=== PATIENT | female | born 1940 | race Caucasian/White ===

== ENCOUNTER 2016-07-17 09:11 | Day surgery (SDC) | payer MEDICARE ==
[2016-07-11 12:41] VITALS: BMI 30.1
[~2016-07-17 09:11] MED LIST: LACTATED RINGERS 1,000 ML IV SCH
[2016-07-17 09:37] VITALS: RESP 16; TEMP 97.1
[2016-07-17] MEDS: PHENYLEPHRINE 10% OPHTH DROPS 5 ML BTL OP ONE ×2 (09:39→09:51)
[2016-07-17] MEDS ORDERED: LIDOCAINE 1% 20 ML VIAL (10MG/ML) FOR IV START INTRADERMA ONE (09:40)
[2016-07-17] MEDS: CYCLOPENTOLATE 1% OPHTH SOLN 2 ML BTL OP ONE ×3 (09:41→09:55)
[2016-07-17] MEDS: FLURBIPROFEN 0.03% OPHTH DROPS 2.5 ML BTL OP ONE ×2 (09:43→09:53)
[2016-07-17] MEDS ORDERED: PROPOFOL 10 MG/ML 20 ML VIAL IV ONE (10:27)
[2016-07-17] MEDS ORDERED: MIDAZOLAM 2 MG/2 ML VIAL ONE (10:27)
[2016-07-17] MEDS ORDERED: fentaNYL (PF) 50 MCG/ML 2 ML AMP ONE (10:27)
[2016-07-17] MEDS ORDERED: BALANCED SALT IRRIG SOLN COMB2 15 ML IRRIG.SOLN INTRAOCULA ONE (10:37)
[2016-07-17] MEDS ORDERED: EPINEPHrine (PF) 0.5 ML in BALANCED SALT IRRIG SOLN COMB2 500 ML IRRIGATION ONE (10:37)
[2016-07-17] MEDS ORDERED: HYALURONATE SODIUM INTRAOCULAR 1 EACH SYRINGE (10MG/ML) INTRAOCULA ONE (10:37)
--- NOTE | 2016-07-17 10:46 | P.OP ---
Date of Procedure: 07/17/16 Procedure(s) Performed: PREOPERATIVE DIAGNOSIS: Cataract, left eye. POSTOPERATIVE DIAGNOSIS: Cataract, left eye. OPERATION: Phacoemulsification cataract, left eye. DESCRIPTION OF PROCEDURE: The patient was taken to the preoperative holding area. Intravenous Propofol was given so as to bring about adequate sedation. The following mixture was given for local anesthesia: 5 mL of 2% lidocaine, 5 mL of 0.75% Marcaine, and 1 mL of Wydase. Approximately 4 mL was injected in the retrobulbar space of the surgical eye. Additional 1 mL was then directed to the temporal area of the surgical eye. This was performed to allow adequate neurological block of the facial muscles. The patient was revived and then taken into the operative room. The patient was prepped and draped in the usual sterile manner for the operative eye. A lid speculum was put into position. The conjunctiva was resected back from the limbus in the 12 o'clock position. Bleeding was controlled with electrocautery. A #69 blade was then used and a half-thickness scleral incision approximately 1-mm posterior to the limbus was made on bare sclera. This was shelved in the clear cornea using a crescent knife. Next a 15-degree blade was used to make a stab incision at the 3 o' clock position at the corneolimbal interface. Keratome blade was then used and the superior wound was extended into the anterior chamber. Viscoelastic was injected into the anterior chamber and to maintain its form. Next, a cystotome was used and a continuous anterior capsulotomy was made without difficulty. Hydrodissection using a blunt cannula and BSS was performed. Phaco probe was then employed and a groove extending from 12 to 6 o'clock in the lens was created. A Jeronimo wand was used through the stab incision so as to perform a divide and conquer technique. Next an irrigation aspiration probe was utilized and any residual cortex was removed from the eye. Again, viscoelastic was injected into the anterior chamber. An Taye posterior chamber lens implant was placed in the cartridge and injected into the anterior chamber without difficulty. The [employer] hook was utilized to spin the lens into position and this was again performed without any difficulty. The irrigation and aspiration probe was again employed and any residual viscoelastic was removed from the eye. Then BSS was injected into the limbal stab incision and the anterior chamber re-inflated. The conjunctiva was reapproximated using electrocautery. One drop of 0.25% Timoptic was placed over the corneal along with TobraDex ophthalmic ointment. Two sterile patches and a Delaney eye shield were taped into position. The patient was transported to the recovery room in stable condition. Pathology: none sent Condition: stable Disposition: same day
[2016-07-17 11:12] VITALS: BP 152/79; PULSE 62
[2016-07-17] MEDS ORDERED: TIMOLOL 0.5% OPHTH SOLN (PF) 0.2 ML DROPERETTE OP ONE (23:00)
[2016-07-17] MEDS ORDERED: GENTAMICIN/PREDNISOL AC OPHTH OINT 3.5GM OPHTHALMIC ONE (23:00)
[2016-07-17] MEDS ORDERED: BUPIVACAINE (PF) 0.75% 5 ML, LIDOCAINE 4% (PF) 5 ML, HYALURONIDASE, HUMAN RECOMB 150 UNIT MISCELLANE ONE ×3 (23:00)
== END 2016-07-17 11:34 | disposition home or self-care (01) ==
LOC: OR 09:11
PROVIDERS: ATTEND Ophthalmology
DX: H26.9 Unspecified cataract (principal); F32.9 Major depressive disorder, single episode, unspecified; Z79.899 Other long term (current) drug therapy; Z88.2 Allergy status to sulfonamides
CPT/HCPCS: 66984; V2632; J2001; J2250; J3470; J0171; J3010; J2704

== ENCOUNTER 2016-08-28 07:09 | Day surgery (SDC) | payer MEDICARE ==
[2016-08-21 10:44] VITALS: BMI 30.2
[2016-08-28] MEDS: FLURBIPROFEN 0.03% OPHTH DROPS 2.5 ML BTL OP ONE ×3 (08:22→08:37)
[2016-08-28] MEDS: PHENYLEPHRINE 10% OPHTH DROPS 5 ML BTL OP ONE ×3 (08:25→08:40)
[2016-08-28 08:27] VITALS: RESP 16; TEMP 97.1
[2016-08-28] MEDS: CYCLOPENTOLATE 1% OPHTH SOLN 2 ML BTL OP ONE ×3 (08:27→08:42)
[2016-08-28] MEDS ORDERED: LIDOCAINE 1% 20 ML VIAL (10MG/ML) FOR IV START INTRADERMA ONE (08:28)
[2016-08-28] MEDS ORDERED: PROPOFOL 10 MG/ML 20 ML VIAL IV ONE (08:56)
[2016-08-28] MEDS ORDERED: MIDAZOLAM 2 MG/2 ML VIAL ONE (08:56)
[2016-08-28] MEDS ORDERED: fentaNYL (PF) 50 MCG/ML 2 ML AMP ONE (08:56)
[2016-08-28] MEDS ORDERED: HYALURONATE SODIUM INTRAOCULAR 1 EACH SYRINGE (10MG/ML) INTRAOCULA ONE (09:02)
[2016-08-28] MEDS ORDERED: BALANCED SALT IRRIG SOLN COMB2 15 ML IRRIG.SOLN IRRIGATION ONE (09:02)
[2016-08-28] MEDS ORDERED: EPINEPHrine (PF) 0.5 ML in BALANCED SALT IRRIG SOLN COMB2 500 ML IRRIGATION ONE (09:03)
--- NOTE | 2016-08-28 09:21 | P.OP ---
Date of Procedure: 08/28/16 Preoperative Diagnosis: Postoperative Diagnosis: Procedure(s) Performed: PREOPERATIVE DIAGNOSIS: Cataract, right eye. POSTOPERATIVE DIAGNOSIS: Cataract, right eye. OPERATION: Phacoemulsification cataract, right eye. DESCRIPTION OF PROCEDURE: The patient was taken to the preoperative holding area. Intravenous Propofol was given so as to bring about adequate sedation. The following mixture was given for local anesthesia: 5 mL of 2% lidocaine, 5 mL of 0.75% Marcaine, and 1 mL of Wydase. Approximately 4 mL was injected in the retrobulbar space of the surgical eye. Additional 1 mL was then directed to the temporal area of the surgical eye. This was performed to allow adequate neurological block of the facial muscles. The patient was revived and then taken into the operative room. The patient was prepped and draped in the usual sterile manner for the operative eye. A lid speculum was put into position. The conjunctiva was resected back from the limbus in the 12 o'clock position. Bleeding was controlled with electrocautery. A #69 blade was then used and a half-thickness scleral incision approximately 1-mm posterior to the limbus was made on bare sclera. This was shelved in the clear cornea using a crescent knife. Next a 15-degree blade was used to make a stab incision at the 3 o' clock position at the corneolimbal interface. Keratome blade was then used and the superior wound was extended into the anterior chamber. Viscoelastic was injected into the anterior chamber and to maintain its form. Next, a cystotome was used and a continuous anterior capsulotomy was made without difficulty. Hydrodissection using a blunt cannula and BSS was performed. Phaco probe was then employed and a groove extending from 12 to 6 o'clock in the lens was created. A Jeronimo wand was used through the stab incision so as to perform a divide and conquer technique. Next an irrigation aspiration probe was utilized and any residual cortex was removed from the eye. Again, viscoelastic was injected into the anterior chamber. An Taye posterior chamber lens implant was placed in the cartridge and injected into the anterior chamber without difficulty. The [employer] hook was utilized to spin the lens into position and this was again performed without any difficulty. The irrigation and aspiration probe was again employed and any residual viscoelastic was removed from the eye. Then BSS was injected into the limbal stab incision and the anterior chamber re-inflated. The conjunctiva was reapproximated using electrocautery. One drop of 0.25% Timoptic was placed over the corneal along with TobraDex ophthalmic ointment. Two sterile patches and a Delaney eye shield were taped into position. The patient was transported to the recovery room in stable condition. Implants: Pathology: none sent Condition: stable Disposition: same day Indications for Procedure: Operative Findings: Description of Procedure:
[2016-08-28 09:39] VITALS: BP 151/83; PULSE 64
[2016-08-28] MEDS ORDERED: TIMOLOL 0.5% OPHTH SOLN (PF) 0.2 ML DROPERETTE OP ONE (23:00)
[2016-08-28] MEDS ORDERED: GENTAMICIN/PREDNISOL AC OPHTH OINT 3.5GM OPHTHALMIC ONE (23:00)
[2016-08-28] MEDS ORDERED: BUPIVACAINE (PF) 0.75% 5 ML, LIDOCAINE 4% (PF) 5 ML, HYALURONIDASE, HUMAN RECOMB 150 UNIT MISCELLANE ONE ×3 (23:00)
== END 2016-08-28 10:04 | disposition home or self-care (01) ==
LOC: OR 07:09
PROVIDERS: ATTEND Ophthalmology
DX: H26.9 Unspecified cataract (principal); J44.9 Chronic obstructive pulmonary disease, unspecified; Z79.51 Long term (current) use of inhaled steroids; Z79.899 Other long term (current) drug therapy; Z88.2 Allergy status to sulfonamides
CPT/HCPCS: 66984; V2632; J2001; J2250; J3470; J0171; J3010; J2704

== ENCOUNTER → 2017-11-21 | Outpatient (CLI) | payer MEDICARE ==
[2017-11-21 12:12] LABS: HGB 14.1 gm/dL (11.4-16.0); MCHC 32.8 g/dL (31.0-37.0); MCV 88.4 fL (80.0-100.0); Platelet Count 283 k/uL (150-450); RBC 4.87 m/uL (3.80-5.40); RDW 13.6 % (11.5-15.5)
[2017-11-21 12:16] LABS: INR 1.1 (<1.2); Prothrombin Time 10.6 sec (9.0-12.0)
[2017-11-21 12:17] LABS: Partial Thromboplastin Time 22.6 sec (22.0-30.0)
[2017-11-21 12:23] LABS: ALT 32 U/L (9-52); AST 22 U/L (14-36); Albumin 3.8 g/dL (3.5-5.0); Alkaline Phosphatase 74 U/L (38-126); Anion Gap 8 mmol/L; Blood Urea Nitrogen 11 mg/dL (7-17); Calcium 8.9 mg/dL (8.4-10.2); Carbon Dioxide 24 mmol/L (22-30); Chloride 108 mmol/L (98-107); Glucose 90 mg/dL (74-99); Sodium 140 mmol/L (137-145); Total Bilirubin 0.5 mg/dL (0.2-1.3); Total Protein 6.5 g/dL (6.3-8.2)
[2017-11-21 12:30] LABS: Appearance,Urine Clear (Clear); Bilirubin,Urine Negative (Negative); Blood,Urine Negative (Negative); Color,Urine Light Yellow; Glucose,Urine (UA) Negative (Negative); Ketones,Urine Negative (Negative); Leukocyte Esterase,Urine Negative (Negative); Nitrite,Urine Negative (Negative); Protein,Urine Negative (Negative); Specific Gravity,Urine 1.009 (1.001-1.035); Urobilinogen,Urine <2.0 mg/dL (<2.0)
== END | disposition home or self-care (01) ==
LOC: LABPAT 11:08
PROVIDERS: ATTEND Orthopaedic Surgery
DX: Z01.818 Encounter for other preprocedural examination (principal); Z01.812 Encounter for preprocedural laboratory examination
CPT/HCPCS: 80053; 81003; 85027; 85610; 85730; 87070; 93005

== ENCOUNTER 2017-11-26 14:00 | Inpatient (IN) | payer MEDICARE ==
[2017-12-11 09:50] VITALS: BMI 30.7
[2017-12-17] MEDS ORDERED: TRANEXAMIC ACID 1,000 MG in SODIUM CHLORIDE 0.9% 50 ML IVPB ONE ×4 (05:00)
[2017-12-17] MEDS ORDERED: ACETAMINOPHEN TAB 500 MG TAB PO ONE (05:00)
[2017-12-17] MEDS ORDERED: MELOXICAM 7.5 MG TAB PO ONE (05:00)
[2017-12-17] MEDS ORDERED: ceFAZolin IN SWFI 2 GM/20 ML SYRINGE IVP ONE (05:00)
[2017-12-17] MEDS ORDERED: ROPIVACAINE 246.25 MG, EPINEPHrine 0.5 MG, KETOROLAC 30 MG, cloNIDine HCL/PF 80 MCG, WA... MISCELLANE ONE ×5 (06:02)
[2017-12-17] MEDS ORDERED: ONDANSETRON 4 MG/2 ML VIAL ONE (11:10)
[2017-12-17] MEDS ORDERED: MIDAZOLAM 2 MG/2 ML VIAL ONE ×2 (11:10→12:11)
[2017-12-17] MEDS ORDERED: DEXAMETHASONE SOD PHOS (MDV) 100 MG/10 ML VIAL IV ONE (11:32)
[2017-12-17] MEDS ORDERED: LACTATED RINGERS 1,000 ML IV ONE ×2 (11:34→16:39)
[2017-12-17] MEDS ORDERED: LIDOCAINE 1% 20 ML VIAL (10MG/ML) FOR IV START INTRADERMA ONE (11:35)
[2017-12-17] MEDS ORDERED: fentaNYL (PF) 50 MCG/ML 2 ML AMP ONE ×2 (11:38→12:11)
[2017-12-17] MEDS ORDERED: fentaNYL (PF) 50 MCG/ML 2 ML AMP IV ONE (11:44)
[2017-12-17] MEDS ORDERED: TRANEXAMIC ACID 1,000 MG/10 ML VIAL ONE (12:11)
[2017-12-17] MEDS ORDERED: SODIUM CHLORIDE 0.9% 100 ML BAG ONE (12:11)
[2017-12-17] MEDS ORDERED: ROPIVACAINE 1,100 MG, SODIUM CHLORIDE 0.9% 330 ML MISCELLANE PRN ×2 (12:12)
--- NOTE | 2017-12-17 12:15 | P.ONQ ---
Anesthesiology Proc Note - PNB - Peripheral Nerve Block Performed Right Adductor Canal Infusion Procedure Start Time: 11:45 Indication: Acute Post-Operative Pain, Analgesia Sedation Type: Sedate with meaningful contact maintained Preparation: Sterile Prep Position: Supine Catheter Depth at Skin (cm): 8 Catheter: Indwelling Needle Types: Other (see comment) (mariusz) Needle Size: 100mm (4") Injectate: 0.5% Ropivacaine (see comment for volume) (20cc) Blood Aspirated: No Pain Paresthesia on Injection Noted: No Resistance on Injection: Normal Events: Uneventful and Well Tolerated
[2017-12-17] MEDS ORDERED: ceFAZolin 3,000 MG in SODIUM CHLORIDE 0.9% IRRIGATIO 3,000 ML IRRIGATION ONE (12:46)
[2017-12-17] MEDS ORDERED: NA PHOS,M-B/NA PHOS,DI-BA 133 ML ENEMA RECTAL PRN (13:02)
[2017-12-17] MEDS ORDERED: ONDANSETRON 4 MG/2 ML VIAL IVP PRN (13:02)
[2017-12-17] MEDS ORDERED: HYDROmorphone 1 MG/ML 1 ML SYRINGE IVP PRN ×2 (13:02)
[2017-12-17] MEDS ORDERED: BISACODYL 10 MG SUPP RECTAL PRN (13:02)
[2017-12-17] MEDS ORDERED: MAGNESIUM HYDROXIDE 2,400 MG/10 ML CUP PO PRN (13:02)
[2017-12-17] MEDS ORDERED: NALOXONE 0.4 MG/ML 1 ML VIAL IV PRN (13:02)
[2017-12-17] MEDS ORDERED: hydrOXYzine PAMOATE 25 MG CAP PO PRN (13:02)
[2017-12-17] MEDS ORDERED: DIAZEPAM 5 MG TAB PO PRN ×2 (13:02)
--- NOTE | 2017-12-17 13:45 | P.OP ---
Date of Procedure: 12/17/17 Preoperative Diagnosis: Severe osteoarthritis right knee Postoperative Diagnosis: Severe osteoarthritis right knee Procedure(s) Performed: Right total knee arthroplasty Implants: Matta [employer] Nephew Oxinium femoral component size 5, right Matta & Nephew Maite II right nonporous tibial baseplate size 4 Matta [employer] Nephew size 9 mm Legion XLPE high flexion articular insert, size 3-4 Matta [employer] Nephew Maite II resurfacing patellar component, 29 mm All components were cemented using Pollo bone cement.. The articulation is Oxinium on polyethylene. Anesthesia: spinal Surgeon: Bryant Bravo Analytics Leader #1: Guillermina Valdivia Estimated Blood Loss (ml): 50 Pathology: other (Bone and cartilage) Condition: stable Disposition: PACU Indications for Procedure: After failure of conservative treatment we discussed the surgical and nonsurgical treatment options at length. Patient wishes to proceed with a total knee arthroplasty. Complications specific to this procedure were discussed at length, including but not limited to infection, bleeding, stiffness , and nerve injury. Patient is aware of all these complications and informed consent was obtained Operative Findings: The operative findings are consistent with severe osteoarthritis of the left knee Description of Procedure: Patient was seen in the preoperative area consent was reviewed and operative site was marked with a skin marker. An adductor canal pain catheter was placed by anesthesia in the preoperative area. Patient was then brought to the operating room and given preoperative antibiotics intravenously. A spinal anesthetic was administered by the anesthesia department. A tourniquet was placed on the upper thigh and the lower extremity was prepped and draped in usual sterile fashion. A gram of transexamic acid was given. A universal timeout was then performed which confirmed the patient's name, surgical site, ALLERGIES, and consent. The lower extremity was then exsanguinated and tourniquet was inflated to 250 mmHg. A standard and anterior midline approach to the knee was performed. The skin and subcutaneous tissue was dissected down to the patellar tendon. A medial parapatellar arthrotomy was then performed. The knee was then extended, the patellar was everted, and the knee was again flexed. Anterior horns of both menisci were excised, and a release was performed to the posterior medial aspect of the knee. On gross visual inspection, there was complete loss of articular cartilage in the medial and patellofemoral joint spaces. There was also significant cartilage damage in the lateral compartment. There were multiple periarticular osteophytes which were then removed with a Ronguer. The femoral canal was then opened with the appropriate drill, and the intramedullary femoral cutting guide was then placed and set for 4 of valgus. The distal femoral cutting block was then pinned in place, and the distal femur was then cut. The cutting block was then removed and the cut was checked for flatness. Next, the sizing guide was then placed and set for 3 external rotation based off of the epicondylar axis and Whitesides line. After the femur was sized, the appropriate 4-in-1 cutting block was then pinned in place. The anterior condyles were cut without notching. The posterior and chamfer cuts were performed while protecting the collateral ligaments. The cutting block was then removed, and the femoral canal was plugged with autologous bone. Attention was then directed to the tibia. The remaining ACL was removed with a Ronguer, and the tibia was then gently subluxed forward with a large bent knee retractor. Any remaining menisci was excised. The posterior lateral corner was cauterized in order to cauterize the lateral geniculate artery. The extra medullary tibial cutting guide was then placed, set for the appropriate rotation , slope, and depth of resection. The proximal tibia cutting guide was then pinned in place. Proximal tibia was then cut and sized. Next trials were then placed with the appropriate-sized insert. The knee was able to fully extend and flex to 130 and was stable throughout all range of motion. The knee was then extended, patella everted. Patella was then measured, and then using an osteotomy guide, the patella was cut at the appropriate level. The patella was then measured and drilled and the patella trial was then placed. The knee was then taken through range of motion with the patella trial and the patella tracked normally. The knee was then extended patella trial was then removed and the patella was everted. Knee was then flexed and lug holes were drilled through the femoral trial and the femoral trial was then removed. The tibial was then exposed, and the tibial broach guide was then pinned in place after it was set for the appropriate rotation to allow for the most coverage without overhang. The tibia was then reamed and broached. The cut surfaces of bone were then irrigated with pulsatile lavage. The posterior structures were injected with the ropivacaine solution. The knee was also irrigated with Irrisept solution. The components were then opened, the cement was mixed, and the components were then cemented in place. The cement was allowed to harden with the knee in full extension. While the cement was hardening, the remaining soft tissues were then injected with a ropivacaine solution, which consisted of 246.25 mg of ropivacaine, 0.5 mg of epinephrine, 30 mg of Toradol, 80 g of clonidine, and 48.45 mL of sterile water, for a total of 100 mL of fluid injected. After the cemented hardened. The tourniquet was released, and hemostasis was obtained. A second gram of transexamic acid was given. The knee was again irrigated. The knee was again taken through range of motion and found to be stable throughout all range of motion of 0-130 , and the patella tracked normally. The fascia was then closed with #2 strata fix suture. The subcutaneous tissue was closed with 3-0 Vicryl and 3-0 strata fix. Dermabond glue was used for the skin and placed with the knee in flexion. The patient was placed in a sterile silver dressing. Patient was then transferred to recovery room in stable condition. The housekeeping assistant ZAHIDA Davey was required due the complexity surgery and the need for a skilled surgical corsetier. She assisted in positioning, draping, retraction, and closure of the wound.
[2017-12-17] MEDS ORDERED: IV FLUID CONTINUATION 1,000 ML IV ONE (13:59)
--- NOTE | 2017-12-17 14:19 | XR ---
EXAMINATION TYPE: XR knee limited RT DATE OF EXAM: 12/17/2017 COMPARISON: NONE TECHNIQUE: Two views submitted HISTORY: Post op FINDINGS: There is a prosthetic knee in near anatomic alignment. There is soft tissue edema and emphysema. IMPRESSION: 1. Postoperative change. Appears in near-anatomic alignment
[2017-12-17] MEDS ORDERED: ONDANSETRON 4 MG/2 ML VIAL IVP ONE (16:51)
[2017-12-17] MEDS ORDERED: HYDROmorphone 1 MG/ML 1 ML SYRINGE IVP ONE (16:51)
[2017-12-17] MEDS: SODIUM CHLORIDE 0.9% 1,000 ML IV SCH (17:44)
[2017-12-17] MEDS: ceFAZolin IN SWFI 2 GM/20 ML SYRINGE IVP SCH (18:17)
[2017-12-17] MEDS: SENNOSIDES-DOCUSATE SODIUM 1 EACH TAB PO SCH (20:29)
[2017-12-17] MEDS: ASPIRIN 325 MG TAB PO SCH (20:29)
[2017-12-17] MEDS: HYDROcodone/APAP 5-325MG 1 EACH TAB PO PRN (20:29)
[2017-12-18] MEDS: ceFAZolin IN SWFI 2 GM/20 ML SYRINGE IVP SCH (01:10)
[2017-12-18] MEDS: HYDROmorphone 1 MG/ML 1 ML SYRINGE IVP PRN ×3 (01:10→23:03)
[2017-12-18] MEDS: HYDROcodone/APAP 5-325MG 1 EACH TAB PO PRN ×4 (05:07→23:04)
[2017-12-18] MEDS: SODIUM CHLORIDE 0.9% 1,000 ML IV SCH ×2 (07:50→22:25)
[2017-12-18 08:12] LABS: Basophils % (A) 0 %; Eosinophils # (A) 0.1 k/uL (0-0.7); Eosinophils % (A) 1 %; HCT 37.7 % (34.0-46.0); HGB 12.2 gm/dL (11.4-16.0); Lymphocytes # (A) 1.4 k/uL (1.0-4.8); Lymphocytes % (A) 10 %; MCH 28.2 pg (25.0-35.0); MCHC 32.2 g/dL (31.0-37.0); MCV 87.4 fL (80.0-100.0); Mean Platelet Volume 7.4; Monocytes % (A) 8 %; Neutrophils # (A) 10.8 k/uL (1.3-7.7); Neutrophils % (A) 80 %; Platelet Count 248 k/uL (150-450); RBC 4.32 m/uL (3.80-5.40); RDW 13.4 % (11.5-15.5); WBC 13.4 k/uL (3.8-10.6)
[2017-12-18] MEDS: ASPIRIN 325 MG TAB PO SCH ×2 (08:46→20:03)
[2017-12-18] MEDS: MELOXICAM 7.5 MG TAB PO SCH (08:47)
--- NOTE | 2017-12-18 08:57 | P.DS ---
Providers Date of admission: 12/17/17 09:51 Expected date of discharge: 12/18/17 Attending physician: Bryant Bravo Consults: 12/17/17 13:02 Consult Physician Routine Consulting Provider: Nicko Rojas Consult Reason/Comments: medical management Do you want consulting provider notified?: Yes Primary care physician: Dami Rosario - Discharge Diagnosis(es) (1) Primary osteoarthritis of right knee Current Visit: Yes Status: Acute (2) Status post total right knee replacement Current Visit: Yes Status: Acute Hospital Course: This is a 77-year-old female with known history of degenerative arthritis of the right knee. The patient presents for evaluation. After discussion and consideration patient elects to proceed with total knee arthroplasty. The patient is seen preoperatively by Dr. Bravo and medically cleared for surgery by their primary care physician. Patient is admitted to [facility] on 12/17/2017 for total knee arthroplasty. The procedures performed without complication or sequelae. The patient is doing well postoperatively. Labs and vital signs are stable on day of discharge. On day of discharge patient's knee incision is healing well. There is minimal erythema. There is minimal drainage noted at this time. There is minimal soft tissue swelling to the knee. Patient has full foot and ankle motion without difficulty or pain. Neurovascular status to the right lower extremity is intact. Patient is discharged home in good condition. Please see med rec for accurate list of home medications. Plan - Discharge Summary Discharge Rx Participant: Yes New Discharge Prescriptions: New Aspirin 325 mg PO BID #60 tab HYDROcodone/APAP 5-325MG [[place] 5-325] 1 - 2 tab PO Q4-6H PRN #84 tab PRN Reason: Pain Sennosides [Senokot] 1 tab PO BID #60 tablet No Action Citalopram Hydrobromide [CeleXA] 40 mg PO DAILY Mometasone/Formoterol [Dulera 200 Mcg/5 Mcg Inhaler] 2 puff INHALATION RT- BID PRN PRN Reason: Shortness Of Breath Ibuprofen [Advil] 200 - 400 mg PO Q6H PRN PRN Reason: Pain Discharge Medication List Citalopram Hydrobromide [CeleXA] 40 mg PO DAILY 05/20/14 [History] Mometasone/Formoterol [Dulera 200 Mcg/5 Mcg Inhaler] 2 puff INHALATION RT-BID PRN 09/22/15 [History] Ibuprofen [Advil] 200 - 400 mg PO Q6H PRN 12/11/17 [History] Aspirin 325 mg PO BID #60 tab 12/18/17 [Rx] HYDROcodone/APAP 5-325MG [[place] 5-325] 1 - 2 tab PO Q4-6H PRN #84 tab 12/18/17 [ Rx] Sennosides [Senokot] 1 tab PO BID #60 tablet 12/18/17 [Rx] Follow up Appointment(s)/Referral(s): Bryant Bravo DO [Doctor of Osteopathic Medicine] - 2 Weeks Activity/Diet/Wound Care/Special Instructions: Weightbearing as tolerated with a walker. CPM 5-6h daily. Leave dressing intact. May be removed by home care nurse in 10 days. May shower with dressing on. Please call [facility] with any questions or concerns, Discharge Disposition: HOME WITH HOME HEALTH SERVICES
--- NOTE | 2017-12-18 10:51 | P.PN ---
Progress Note - Text 12/18 717am 77-year-old female status post total knee replacement by Dr. Bravo. Patient has an On-Q pump for postop pain control with the solution running at 8 mL an hour, she has a pain score of 3. Plan to continue On-Q pump infusion
--- NOTE | 2017-12-18 13:59 | P.CONS ---
History of Present Illness - Reason for Consult COPD - History of Present Illness 72-year-old admitted for right knee arthroplasty postoperative day one. Denied any short of breath cough. Patient never smoked but does have COPD. Patient denied any fever chills dysuria nausea vomiting doesn't have fully catheter did not pass gas yet does have good bowel sounds patient has a right knee postsurgical dressing has excess drainage from that area. Review of Systems REVIEW OF SYSTEMS: CONSTITUTIONAL: No fever, no malaise, no fatigue. HEENT: No recent visual problems or hearing problems. Denied any sore throat. CARDIOVASCULAR: No chest pain, orthopnea, PND, no palpitations, no syncope. PULMONARY: No shortness of breath, no cough, no hemoptysis. GASTROINTESTINAL: No diarrhea, no nausea, no vomiting, no abdominal pain. Normoactive bowel sounds. NEUROLOGICAL: No headaches, no weakness, no numbness. HEMATOLOGICAL: Denies any bleeding or petechiae. GENITOURINARY: Denies any burning micturition, frequency, or urgency. MUSCULOSKELETAL/RHEUMATOLOGICAL: Denies any joint pain, swelling, or any muscle pain. ENDOCRINE: Denies any polyuria or polydipsia. The rest of the 14-point review of systems is negative. Past Medical History Past Medical History: COPD, Osteoarthritis (OA) History of Any Multi-Drug Resistant Organisms: None Reported Past Surgical History: Orthopedic Surgery Additional Past Surgical History / Comment(s): arthroscopy knee & hand surg., cataracts removed Past Anesthesia/Blood Transfusion Reactions: No Reported Reaction, Family History of Problems w/ Anesthesia Additional Past Anesthesia/Blood Transfusion Reaction / Comm: sister n/v Past Psychological History: Anxiety Smoking Status: Never smoker Past Alcohol Use History: Occasional Past Drug Use History: None Reported - Past Family History Mother Family Medical History: No Reported History Medications and Allergies Home Medications Medication Instructions Recorded Confirmed Type Citalopram Hydrobromide [CeleXA] 40 mg PO DAILY 05/20/14 12/17/17 History Mometasone/Formoterol [Dulera 200 2 puff INHALATION RT-BID PRN 09/22/15 History Mcg/5 Mcg Inhaler] Ibuprofen [Advil] 200 - 400 mg PO Q6H PRN 12/11/17 12/17/17 History Aspirin 325 mg PO BID #60 tab 12/18/17 Rx HYDROcodone/APAP 5-325MG [[place] 1 - 2 tab PO Q4-6H PRN #84 tab 12/18/17 Rx 5-325] Sennosides [Senokot] 1 tab PO BID #60 tablet 12/18/17 Rx Allergies Allergy/AdvReac Type Severity Reaction Status Date / Time Sulfa (Sulfonamide Allergy Rash/Hives Verified 12/17/17 17:35 Antibiotics) Physical Exam Vitals: Vital Signs Temp Pulse Pulse Resp BP Pulse Ox 12/18/17 07:15 55 L 16 12/18/17 07:00 97.8 F 55 L 16 137/73 98 12/18/17 01:15 97.4 F L 67 16 147/75 93 L 12/18/17 00:20 16 12/17/17 20:30 89 16 12/17/17 19:00 97.7 F 89 16 132/68 95 12/17/17 17:43 97.9 F 73 16 162/84 96 12/17/17 17:00 77 16 162/73 97 12/17/17 16:45 79 16 169/83 95 12/17/17 16:00 63 16 152/76 98 12/17/17 15:30 65 16 140/77 97 12/17/17 15:00 55 L 16 126/62 96 12/17/17 14:42 59 L 16 138/65 94 L 12/17/17 14:27 61 16 141/75 95 12/17/17 14:12 65 16 143/76 95 12/17/17 13:57 98.0 F 63 16 149/66 94 L Intake and Output 12/17/17 12/18/17 12/18/17 22:59 06:59 14:59 Intake Total 820 880 Balance 820 880 Intake: Intake, IV Titration 520 520 Amount Sodium Chloride 0.9% 1, 520 520 000 ml @ 65 mls/hr IV . [id number] [facility] Rx#:[id number] Oral 300 360 Other: Voiding Method Toilet Toilet # Voids 2 2 Weight 87.543 kg 87.543 kg PHYSICAL EXAMINATION: GENERAL: The patient is alert and oriented x3, not in any acute distress. Well developed, well nourished. HEENT: Pupils are round and equally reacting to light. EOMI. No scleral icterus. No conjunctival pallor. Normocephalic, atraumatic. No pharyngeal erythema. No thyromegaly. CARDIOVASCULAR: S1 and S2 present. No murmurs, rubs, or gallops. PULMONARY: Chest is clear to auscultation, no wheezing or crackles. ABDOMEN: Soft, nontender, nondistended, normoactive bowel sounds. No palpable organomegaly. MUSCULOSKELETAL: Deferred to orthopedic surgery EXTREMITIES: No cyanosis, clubbing, or pedal edema. NEUROLOGICAL: Gross neurological examination did not reveal any focal deficits. SKIN: No rashes. Results CBC & Chem 7: 12/18/17 07:42 Labs: Abnormal Lab Results - Last 24 Hours (Table) 12/18/17 Range/Units 07:42 WBC 13.4 H (3.8-10.6) k/uL Neutrophils # 10.8 H (1.3-7.7) k/uL Assessment and Plan Plan: -Right knee arthroplasty postoperative day one patient is clinically doing well , DVT prophylaxis in management as per primary service -COPD without any significant acute exacerbation -Anxiety disorder. Patient is medically doing well no further recommendations from medicine can be discharged whenever it's appropriate from arthritic perspective
[2017-12-18] MEDS: CITALOPRAM HYDROBROMIDE 20 MG TAB PO SCH (15:34)
[2017-12-18] MEDS: SYMBICORT 160-4.5 MCG INHALER INHALATION SCH (21:17)
[2017-12-18] MEDS: SENNOSIDES-DOCUSATE SODIUM 1 EACH TAB PO SCH (22:26)
[2017-12-19] MEDS: HYDROcodone/APAP 5-325MG 1 EACH TAB PO PRN (03:59)
[2017-12-19] MEDS: HYDROmorphone 1 MG/ML 1 ML SYRINGE IVP PRN (04:00)
[2017-12-19 07:17] VITALS: BP 155/87; PULSE 67; RESP 12; TEMP 98.2
--- NOTE | 2017-12-19 07:40 | P.PN ---
Progress Note - Text Progress Note Date: 12/19/17 77-year-old female status post total knee arthroplasty. Postop day #2, abductor canal catheter day #3. Patient VAS is a 4 out of 10 in severity. Worse with ambulation, patient states that she has no motor or sensory deficits. Insertion site looks clean dry and intact. Patient likely be discharged home tomorrow.
[2017-12-19] MEDS ORDERED: HYDROcodone/APAP 7.5-325MG 1 EACH TAB PO PRN ×2 (08:11)
[2017-12-19] MEDS: MELOXICAM 7.5 MG TAB PO SCH (08:12)
[2017-12-19] MEDS: ASPIRIN 325 MG TAB PO SCH (08:12)
[2017-12-19] MEDS: CITALOPRAM HYDROBROMIDE 20 MG TAB PO SCH (08:12)
[2017-12-19] MEDS: SYMBICORT 160-4.5 MCG INHALER INHALATION SCH (08:47)
== END 2017-12-19 10:22 | disposition home health service (06) | DRG 470 ==
LOC: 2ORMAIN 12-17 09:51 → 3SUR 12-17 17:27
PROVIDERS: ADMIT Orthopaedic Surgery; ATTEND Orthopaedic Surgery
PROC: 0SRC069 Replacement of Right Knee Joint with Oxidized Zirconium on Polyethylene Synthetic Substitute, Cemented, Open Approach (ICD-10-PCS; principal; 2017-12-17 12:15)
DX: M17.11 Unilateral primary osteoarthritis, right knee (principal); J44.9 Chronic obstructive pulmonary disease, unspecified; F41.0 Panic disorder [episodic paroxysmal anxiety]; F32.9 Major depressive disorder, single episode, unspecified; M16.10 Unilateral primary osteoarthritis, unspecified hip; Z79.51 Long term (current) use of inhaled steroids; Z79.899 Other long term (current) drug therapy; Z79.82 Long term (current) use of aspirin; Z88.2 Allergy status to sulfonamides; Z82.3 Family history of stroke; Z82.49 Family history of ischemic heart disease and other diseases of the circulatory system; Z98.42 Cataract extraction status, left eye; Z98.41 Cataract extraction status, right eye; Z96.1 Presence of intraocular lens
CPT/HCPCS: 85025; 88300

== ENCOUNTER 2018-01-16 21:01 | Emergency (ER) | payer MEDICARE ==
[2018-01-16] MEDS ORDERED: cloNIDine HCL 0.1 MG TAB PO STA (21:42)
--- NOTE | 2018-01-16 21:46 | ED ---
General Adult HPI - General Chief complaint: Recheck/Abnormal Lab/Rx Stated complaint: High BP Time Seen by Provider: 01/16/18 21:22 Source: patient Mode of arrival: wheelchair Limitations: no limitations - History of Present Illness Initial comments: Laly is a 77-year-old female who presents to the emergency department today for evaluation of asymptomatic hypertension. Patient reports that 4 weeks ago she had knee surgery, she reports that she is currently undergoing physical therapy and has been doing well. She reports that she does experience some aching pain in her knee throughout the night, for which she takes [place] nightly. Patient reports that she has noticed that her blood pressure has been elevated since surgery. She contacted her primary care physician about this today and was prescribed Lopressor 50 mg by mouth. Patient reports that today her blood pressure was greater than 190/100 she took her first dose of Lopressor around 4 PM. This evening a family member came to her home and rechecked her blood pressure with a manual blood pressure cuff and confirm that it persisted over 190/100 which prompted them to come to the ER for evaluation. Patient denies any headache, vision changes, difficulty with speech or swallowing, chest pain, shortness of breath, palpitations or decreased urine output. - Related Data Home Medications Medication Instructions Recorded Confirmed Citalopram Hydrobromide [CeleXA] 20 mg PO DAILY 01/16/18 01/16/18 HYDROcodone/APAP 5-325MG [[place] 1 tab PO Q6HR PRN 01/16/18 01/16/18 5-325] Metoprolol Tartrate [Lopressor] 50 mg PO DAILY 01/16/18 01/16/18 Previous Rx's Medication Instructions Recorded Aspirin 325 mg PO BID #60 tab 12/18/17 Allergies Allergy/AdvReac Type Severity Reaction Status Date / Time Sulfa (Sulfonamide Allergy Rash/Hives Verified 01/16/18 21:27 Antibiotics) Review of Systems ROS Statement: Those systems with pertinent positive or pertinent negative responses have been documented in the HPI. ROS Other: All systems not noted in ROS Statement are negative. Past Medical History Past Medical History: COPD, Osteoarthritis (OA) History of Any Multi-Drug Resistant Organisms: None Reported Past Surgical History: Orthopedic Surgery Additional Past Surgical History / Comment(s): arthroscopy knee & hand surg., cataracts removed Past Anesthesia/Blood Transfusion Reactions: No Reported Reaction, Family History of Problems w/ Anesthesia Additional Past Anesthesia/Blood Transfusion Reaction / Comment(s): sister n/v Past Psychological History: Anxiety Smoking Status: Never smoker Past Alcohol Use History: Occasional Past Drug Use History: None Reported - Past Family History Mother Family Medical History: No Reported History General Exam - General Exam Comments Initial Comments: Physical Exam GENERAL: Patient is well-developed and well-nourished. Patient is nontoxic and well- hydrated and is in no distress. HENT: Normocephalic, Atraumatic. EYES: PERRL, EOMI PULMONARY: Unlabored respirations. No audible rales rhonchi or wheezing was noted. CARDIOVASCULAR: There is a regular rate and rhythm without any murmurs gallops or rubs. ABDOMEN: Soft and nontender with normal bowel sounds. SKIN: Skin is clear with no lesions or rashes and otherwise unremarkable. : Deferred NEUROLOGIC: Patient is alert and oriented x3. Moving all extremities spontaneously MUSCULOSKELETAL: Decreased range of motion of the right knee consistent with recent surgery PSYCHIATRIC: Normal psychiatric evaluation. Limitations: no limitations Limitations: no limitations Course Vital Signs 01/16/18 01/16/18 01/16/18 21:12 21:45 22:15 Temperature 98.2 F Pulse Rate 68 58 L 57 L Respiratory 18 20 18 Rate Blood Pressure 187/88 197/91 184/85 O2 Sat by Pulse 96 96 96 Oximetry 01/16/18 22:39 Temperature 98.0 F Pulse Rate 58 L Respiratory 18 Rate Blood Pressure 172/79 O2 Sat by Pulse 95 Oximetry EKG Findings - EKG Comments: EKG Findings:: EKG obtained at 9:57 PM, rate of 61 and rhythm is sinus there is a normal axis, normal intervals, [place] 160, QRS is 78, QTC is 432. There are no acute ST elevations or depressions no evidence of acute ischemia or infarction. When compared to EKG obtained last month there is no significant change in morphology. Medical Decision Making - Medical Decision Making Patient was seen and evaluated, history is obtained from the patient, family at bedside and review of medical record Patient presenting with asymptomatic hypertension was prescribed metoprolol 50 mg by mouth daily took her first dose today continues to have hypertension 4 hours later EKG was obtained with no significant changes from previous By mouth clonidine was given and patient's blood pressure improved, patient remained asymptomatic. The need for outpatient follow-up was discussed with patient. All questions pertaining to care were answered to the best my ability patient was discharged home the plan to contact her primary care physician in the morning or return for any new or concerning symptoms. Disposition Clinical Impression: Hypertension Disposition: HOME SELF-CARE Condition: Good Instructions: Hypertension (ED) Additional Instructions: Contact her primary care physician tomorrow to let them know that you were seen in the emergency department for high blood pressure. Continue taking your metoprolol 50 mg daily as prescribed by her primary care physician. Return to the emergency department if he develop any headache, vision changes, chest pain , shortness of breath or new or concerning symptoms. Is patient prescribed a controlled substance at d/c from ED?: No Referrals: Alvaro Rosario MD [Primary Care Provider] - 1-2 days
[2018-01-16 22:23] VITALS: RESP 18
[2018-01-16 22:40] VITALS: BP 172/79; PULSE 58; TEMP 98
== END 2018-01-16 22:39 | disposition home or self-care (01) ==
LOC: EC 21:01
DX: I10 Essential (primary) hypertension (principal); M25.561 Pain in right knee; F41.9 Anxiety disorder, unspecified; M19.90 Unspecified osteoarthritis, unspecified site; Z98.890 Other specified postprocedural states; Z79.899 Other long term (current) drug therapy; Z88.2 Allergy status to sulfonamides
CPT/HCPCS: 93005; 99284

== ENCOUNTER → 2018-12-05 | Outpatient (CLI) | payer MEDICARE ==
--- NOTE | 2018-12-05 16:43 | US ---
EXAMINATION TYPE: US carotid duplex BILAT DATE OF EXAM: 12/05/2018 COMPARISON: NONE CLINICAL HISTORY: 78-year-old female G45.9 Transient cerebral ischemic attack. TIA TECHNIQUE: Carotid duplex ultrasound examination. In direct Doppler criteria was utilized. EXAM MEASUREMENTS: RIGHT: Peak Systolic Velocity (PSV) cm/sec ----- Right CCA: 72.1 ----- Right ICA: No flow detected ----- Right ECA: 86.6 ICA/CCA ratio: N/A. RIGHT: End Diastole cm/sec ----- Right CCA: 16.9 ----- Right ICA: No flow detected ----- Right ECA: 0 LEFT: Peak Systolic Velocity (PSV) cm/sec ----- Left CCA: 70.6 ----- Left ICA: 79.3 ----- Left ECA: 67.7 ICA/CCA ratio: 1.1 LEFT: End Diastole cm/sec ----- Left CCA: 15.4 ----- Left ICA: 21.2 ----- Left ECA: 0 VERTEBRALS (direction of flow): Right Vertebral: Antegrade Left Vertebral: Antegrade Rhythm: Normal IMPRESSION: No flow detected within the right ICA. Findings could represent complete occlusion versus subtotal oc clusion. CT angiography as clinically indicated. Criteria for Assigning % of Stenosis / Diameter reduction (Estimation based on the indirect measurements of the internal carotid artery velocities (ICA PSV). 1. Normal (no stenosis)=ICA PSV < 125 cm/s: ratio < 2.0: ICA EDV<40 cm/s. 2. Less than 50% stenosis=ICA PSV < 125 cm/s: ratio < 2.0: ICA EDV<40 cm/s. 3. 50 to 69% stenosis=ICA PSV of 125 to 230 cm/s: ration 2.0 ? 4.0: ICA EDV 40-100 cm/s. 4. Greater than 70% stenosis to near occlusion= ICA PSV > 230 cm/s: ratio > 4.0: ICA EDV > 100 cm/s. 5. Near occlusion= ICA PSV velocities may be low or undetectable: variable ratio and ICA EDV. 6. Total occlusion=unable to detect flow.
--- NOTE | 2018-12-06 08:55 | ECHOF ---
Referral Reason:G45.9 Transient cerebral ischemic attack MEASUREMENTS -------- HEIGHT: 165.1 cm WEIGHT: 83.9 kg BP: RVIDd: 2.6 cm (< 3.3) IVSd: 1.0 cm (0.6 - 1.1) LVIDd: 3.9 cm (3.9 - 5.3) LVPWd: 1.4 cm (0.6 - 1.1) IVSs: 1.3 cm LVIDs: 3.1 cm LVPWs: 1.6 cm LA Diam: 4.9 cm (2.7 - 3.8) LAESV Index (A-L): 37.47 ml/m Ao Diam: 3.3 cm (2.0 - 3.7) AV Cusp: 1.1 cm (1.5 - 2.6) LA Diam: 4.1 cm (2.7 - 3.8) MV EXCURSION: 19.089 mm (> 18.000) MV EF SLOPE: 83 mm/s (70 - 150) EPSS: 1.0 cm MV E Beck: 0.77 m/s MV DecT: 192 ms MV A Beck: 0.79 m/s MV E/A Ratio: 0.97 AV maxP.87 mmHg AV meanP.87 mmHg AR PHT: 694 ms RAP: 5.00 mmHg RVSP: 29.38 mmHg FINDINGS -------- Sinus rhythm. This was a technically adequate study. The left ventricular size is normal. Overall left ventricular systolic function is normal with, an EF between 55 - 60 %. The right ventricle is normal in size. The left atrium is moderately dilated. LA is moderately dilated 34-39 ml/m2 The right atrial size is normal. Trace to mild aortic regurgitation. There is mild aortic stenosis present. Peak/mean gradient acr oss the Aortic Valve is 12.87mmHg / 5.87mmHg. Mild mitral annular calcification present. Rqqw-[id number] mitral regurgitation is present. Mild tricuspid regurgitation present. There is mild pulmonary hypertension. The right ventricular systolic pressure, as measured by Doppler, is 29.38mmHg. There is no pulmonic regurgitation present. The aortic root size is normal. There is no pericardial effusion. CONCLUSIONS -------- 1. Sinus rhythm. 2. This was a technically adequate study. 3. The left ventricular size is normal. 4. Overall left ventricular systolic function is normal with, an EF between 55 - 60 %. 5. The right ventricle is normal in size. 6. The left atrium is moderately dilated. 7. LA is moderately dilated 34-39 ml/m2 8. The right atrial size is normal. 9. Trace to mild aortic regurgitation. 10. There is mild aortic stenosis present. 11. Peak/mean gradient across the Aortic Valve is 12.87mmHg / 5.87mmHg. 12. Mild mitral annular calcification present. 13. Ttok-aa-bosuihhs mitral regurgitation is present. 14. Mild tricuspid regurgitation present. 15. There is mild pulmonary hypertension. 16. The right ventricular systolic pressure, as measured by Doppler, is 29.38mmHg. 17. There is no pulmonic regurgitation present. 18. The aortic root size is normal. 19. There is no pericardial effusion. COMPUTING TUTOR: Joy Hankins RDCS
== END | disposition home or self-care (01) ==
LOC: RADECHMAIN 15:03
PROVIDERS: ATTEND Family Medicine
DX: I08.3 Combined rheumatic disorders of mitral, aortic and tricuspid valves (principal); I27.20 Pulmonary hypertension, unspecified; G45.9 Transient cerebral ischemic attack, unspecified
CPT/HCPCS: 93306; 93880

== ENCOUNTER → 2018-12-24 | Outpatient (CLI) | payer MEDICARE ==
[2018-12-24 13:53] LABS: African American GFR (CKD) >90 (>60 ml/min/1.73 sqM); Blood Urea Nitrogen 16 mg/dL (7-17)
--- NOTE | 2018-12-24 15:03 | CT ---
EXAMINATION TYPE: CT angio neck DATE OF EXAM: 12/24/2018 HISTORY: Occlusion COMPARISON: Carotid ultrasound December 05, 2018 CT DLP: 286.50 mGycm. Automated Exposure Control for Dose Reduction was Utilized. TECHNIQUE: CTA scan of the neck is performed with IV Contrast, patient injected with 65 mL of Isovue 370, axial images are obtained, coronal and sagittal reformatted images are reviewed. Three-D recons tructed images are created on an independent workstation and reviewed. FINDINGS: Carotid/Vascular Structures: There is normal 3 vessel origin from the aortic arch. Right common carot id artery shows normal origin from the right brachiocephalic artery. Tortuous course to the right com mon carotid artery with retropharyngeal carotid bulb. Mild calcified plaque right carotid bulb withou t significant stenosis and, or internal carotid arteries. Some tortuous course to the proximal right internal carotid artery. Mild to moderate calcified plaque supraclinoid segment. Patent external [place] tid artery without significant plaque or stenosis. No significant plaque or stenosis at left carotid bulb. Tortuous medial course to the distal left com mon carotid artery with retropharyngeal location. Tortuous course to the proximal to mid left interna l carotid artery. Wfhr-[id number] calcified plaque supraclinoid segment. Patent left external caroti d artery without significant plaque or stenosis. Other: No suspicious incidental findings. IMPRESSION: No significant stenosis in common or internal carotid arteries bilaterally. There is not complete occlusion of the right internal carotid artery as suspected on ultrasound. Tortuous course is noted bilaterally.
== END | disposition home or self-care (01) ==
LOC: RADCTMAIN 12:27
PROVIDERS: ATTEND Family Medicine
DX: I77.1 Stricture of artery (principal)
CPT/HCPCS: 82565; 84520; 70498; 36415; Q9967

== ENCOUNTER → 2022-06-18 | Outpatient (CLI) | payer MEDICARE ==
--- NOTE | 2022-06-18 14:31 | US ---
EXAMINATION TYPE: US carotid duplex BILAT DATE OF EXAM: 06/18/2022 COMPARISON: US and CTA neck 2019. CLINICAL HISTORY: I63.9. Pt states episode of transient weakness and eye problems TECHNIQUE: Carotid duplex ultrasound examination. Indirect Doppler criteria was utilized. FINDINGS: EXAM MEASUREMENTS: RIGHT: Peak Systolic Velocity (PSV) cm/sec ----- Right CCA: 63.3 ----- Right ICA: 70.3 ----- Right ECA: 49.4 ICA/CCA ratio: 1.1 RIGHT: End Diastole cm/sec ----- Right CCA: 13.6 ----- Right ICA: 18.0 ----- Right ECA: 0.0 LEFT: Peak Systolic Velocity (PSV) cm/sec ----- Left CCA: 57.2 ----- Left ICA: 54.6 ----- Left ECA: 57.2 ICA/CCA ratio: 1.0 LEFT: End Diastole cm/sec ----- Left CCA: 11.0 ----- Left ICA: 15.4 ----- Left ECA: 0.0 VERTEBRALS (direction of flow): Right Vertebral: Antegrade Left Vertebral: Antegrade Rhythm: Normal PHYSICIAN ASSISTANT NOTES: No significant stenosis seen IMPRESSION: No hemodynamically significant stenosis in either internal carotid artery. No significan t change from prior. Criteria for Assigning % of Stenosis / Diameter reduction (Estimation based on the indirect measurements of the internal carotid artery velocities (ICA PSV). 1. Normal (no stenosis)=ICA PSV < 125 cm/s: ratio < 2.0: ICA EDV<40 cm/s. 2. Less than 50% stenosis=ICA PSV < 125 cm/s: ratio < 2.0: ICA EDV<40 cm/s. 3. 50 to 69% stenosis=ICA PSV of 125 to 230 cm/s: ration 2.0 ? 4.0: ICA EDV 40-100 cm/s. 4. Greater than 70% stenosis to near occlusion= ICA PSV > 230 cm/s: ratio > 4.0: ICA EDV > 100 cm/s. 5. Near occlusion= ICA PSV velocities may be low or undetectable: variable ratio and ICA EDV. 6. Total occlusion=unable to detect flow.
== END | disposition home or self-care (01) ==
LOC: RADUSWWP 13:11
PROVIDERS: ATTEND Family Medicine
DX: I63.9 Cerebral infarction, unspecified (principal)
CPT/HCPCS: 93880

== ENCOUNTER → 2022-06-27 | Outpatient (CLI) | payer MEDICARE ==
--- NOTE | 2022-06-28 13:38 | MR ---
EXAMINATION TYPE: MR brain wo/w con DATE OF EXAM: 06/27/2022 3:06 PM CLINICAL INDICATION:Female, 82 years old with history of I63.9 CEREBRAL INFARCTION; Cerebral infarcti on. COMPARISON: CT brain 09/22/2015, MRI brain 10/11/2015 TECHNIQUE: Multi planar, multi sequence imaging was performed through the brain including: T1, T2, In version recovery, susceptibility weighted imaging and gradient echo imaging and Diffusion weighted im aging. The patient was then given intravenous contrast and multi planar, T1 fat-saturation images wer e obtained. IV Contrast: 9 cc Gadavist FINDINGS: Mild cerebral atrophy with proportional dilation of ventricular system. The basal cisterns appear unremarkable. Diffusion-weighted imaging shows no evidence of restricted di ffusion to suggest acute/subacute infarct. Intracranial arterial flow voids are maintained. Midline s tructures show no abnormality. Scattered foci of high T2 signal intensity are seen within the periven tricular white matter. The susceptibility weighted images demonstrate blooming artifact focus compati ble with micro-hemorrhage involving the left cerebellar hemisphere. After administration of gadoliniu m, no abnormal enhancement is seen. The bone marrow signal is within normal limits. Paranasal sinuses and mastoid air cells: No significant paranasal sinus disease. Visualized orbits: Orbital contents are intact. IMPRESSION: 1. No evidence of intracranial mass, acute/subacute infarct, or abnormal enhancement. 2. Nonspecific white matter changes, likely related to small vessel ischemic disease
== END | disposition home or self-care (01) ==
LOC: RADMRIMAIN 13:32
PROVIDERS: ATTEND Family Medicine
DX: I63.9 Cerebral infarction, unspecified (principal); R90.82 White matter disease, unspecified
CPT/HCPCS: 70553; A9585

== ENCOUNTER 2022-11-04 05:56 | Emergency (ER) | payer MEDICARE ==
[2022-11-04 06:04] VITALS: RESP 18
[2022-11-04] MEDS ORDERED: MORPHINE SULFATE 2 MG/ML SYRINGE IM STA (06:44)
[2022-11-04] MEDS ORDERED: LIDOCAINE 5% PATCH TOPICAL ONE (06:44)
[2022-11-04] MEDS ORDERED: HYDROcodone/APAP 5-325MG 1 EACH TAB PO STA (06:57)
--- NOTE | 2022-11-04 06:58 | ED ---
Fall HPI - General Chief Complaint: Back Pain/Injury Stated Complaint: Fall, back pain Time Seen by Provider: 11/04/22 06:17 Source: patient, RN notes reviewed Mode of arrival: wheelchair Limitations: no limitations - History of Present Illness Initial Comments: This is an 82-year-old female who presents to the emergency department for a fall. States that 2 days ago she was bending over to get groceries out of her car, when she tripped, and fell backwards. She hit her head and landed on her lower back. Currently complaining of pain to the lower back. She is on Plavix. States that she was disoriented for a couple of minutes afterwards, but denies any loss of consciousness. Denies sustaining any other injuries. She is not taking anything for her pain. Denies any loss of bowel/bladder control or saddle anesthesia. Denies any fevers, chills, sore throat, cough, dyspnea, chest pain, palpitations, abdominal pain, nausea, vomiting, diarrhea, or headaches. MD Complaint: fall Onset/Timin -: days(s) - Related Data Home Medications Medication Instructions Recorded Confirmed Citalopram Hydrobromide [CeleXA] 20 mg PO DAILY 01/16/18 01/16/18 HYDROcodone/APAP 5-325MG [[place] 1 tab PO Q6HR PRN 01/16/18 01/16/18 5-325] Metoprolol Tartrate [Lopressor] 50 mg PO DAILY 01/16/18 01/16/18 Previous Rx's Medication Instructions Recorded Aspirin 325 mg PO BID #60 tab 12/18/17 Lidocaine 5% Patch [Lidoderm 5% 1 patch TOPICAL DAILY PRN #30 patch 11/04/22 Patch] Meloxicam [Mobic] 15 mg PO DAILY PRN #15 tab 11/04/22 Allergies Allergy/AdvReac Type Severity Reaction Status Date / Time Sulfa (Sulfonamide Allergy Rash/Hives Verified 01/16/18 21:27 Antibiotics) Review of Systems ROS Statement: Those systems with pertinent positive or pertinent negative responses have been documented in the HPI. ROS Other: All systems not noted in ROS Statement are negative. Past Medical History Past Medical History: COPD, Osteoarthritis (OA) History of Any Multi-Drug Resistant Organisms: None Reported Past Surgical History: Orthopedic Surgery Additional Past Surgical History / Comment(s): arthroscopy knee & hand surg., cataracts removed Past Anesthesia/Blood Transfusion Reactions: No Reported Reaction, Family History of Problems w/ Anesthesia Additional Past Anesthesia/Blood Transfusion Reaction / Comment(s): sister n/v Past Psychological History: Anxiety Past Alcohol Use History: Occasional Past Drug Use History: None Reported - Past Family History Mother Family Medical History: No Reported History General Exam Limitations: no limitations General appearance: alert, in distress Head exam: Present: atraumatic, normocephalic, normal inspection Eye exam: Present: normal appearance, PERRL, EOMI. Absent: scleral icterus, conjunctival injection, periorbital swelling Respiratory exam: Present: normal lung sounds bilaterally. Absent: respiratory distress, wheezes, rales, rhonchi, stridor Cardiovascular Exam: Present: regular rate, normal rhythm, normal heart sounds. Absent: systolic murmur, diastolic murmur, rubs, gallop, clicks Back exam: Present: tenderness (Lower lumbar spine) Neurological exam: Present: alert, oriented X3, CN II-XII intact Psychiatric exam: Present: normal affect, normal mood Skin exam: Present: warm, dry, intact, normal color. Absent: rash Course Vital Signs 11/04/22 06:00 Temperature 98.6 F Pulse Rate 68 Respiratory 18 Rate Blood Pressure 187/85 O2 Sat by Pulse 98 Oximetry Medical Decision Making - Medical Decision Making This is an 82-year-old female who presents to the emergency department for low back pain after a fall. Was pt. sent in by a medical professional or institution? @ -No Did you speak to anyone other than the patient for history? @ -No Did you review nursing and triage notes? @ -Yes, and I agree, it is accurate with regards to the patient's symptoms. Were old charts reviewed? @ -No Differential Diagnosis? @ -Differential Back Pain: Strain, zoster, cauda equina syndrome, epidural abscess, vertebral osteomyelitis, discitis, fracture, subluxation, disc herniation, DJD, spinal stenosis, dissection, AAA, pancreatitis, peptic ulcer disease, pyelonephritis, kidney stone, this is not meant to be an all-inclusive list. EKG interpreted by me (3pts min.)? @ -Not obtained X-rays interpreted by me (1pt min.)? @ -Not obtained CT interpreted by me (1pt min.)? @ -Computed tomography scan of the brain and c-spine obtained. My interpretation identifies no evidence of an acute intracranial hemorrhage, skull fracture, or cervical spine fracture. CT scan of the lumbar spine obtained as well. My interpretation identifies disc bulges at L2-L3 and L3-L4. U/S interpreted by me (1pt. min.)? @ -Not obtained What testing was considered but not performed? (CT, X-rays, U/S, labs)? Why? @ -None What meds were considered but not given? Why? @ -None Did you discuss the management of the patient with other professionals? @ -No Did you reconcile home meds? @ -No Was smoking cessation discussed for >3mins.? @ -No Was critical care preformed (if so, how long)? @ -No Were there social determinants of health that impacted care today? How? (Homelessness, low income, unemployed, alcoholism, drug addiction, transportation, low edu. Level, literacy, decrease access to med. care, usp, rehab)? @ -No Was there de-escalation of care discussed even if they declined? (Discuss DNR or withdrawal of care, Hospice)? @ -No What co-morbidities impacted this encounter? (DM, HTN, Smoking, COPD, CAD, Cancer, CVA, Hep., AIDS, mental health diagnosis, sleep apnea, morbid obesity)? @ -Osteoarthritis Was patient admitted / discharged? @ -Discharged. Given the patient's age and because she is on Plavix, computed tomography scan of the brain and C-spine was obtained. We also obtained a computed tomography scan of the lumbar spine as opposed to an x-ray for better evaluation of any irregularities. Lidocaine patch was applied and she was given a dose of [place] and Toradol for pain relief, which was effective. Computed tomography scan of the brain/c-spine revealed no acute findings. Computed tomography scan of the lumbar spine revealed an age indeterminate T12 compression fracture and mild broad-based disc bulging at L2-L3 and L3-L4. Patient does not have tenderness to the T12 region, and this is not likely related to her fall 2 days ago. Prescription for lidocaine patches and mobic provided with dosing instructions reviewed. She is advised to avoid taking the Mobic with any other anti-inflammatories such as ibuprofen. Patient is instructed to follow up with orthopedics for further evaluation of ongoing symptoms. Undiagnosed new problem with uncertain prognosis? @ -None Drug Therapy requiring intensive monitoring for toxicity (Heparin, Nitro, Insulin, Cardizem)? @ -None Were any procedures done? @ -None Diagnosis/symptom? @ -Fall, lumbar disc herniation Acute, or Chronic, or Acute on Chronic? @ -Acute Uncomplicated (without systemic symptoms) or Complicated (systemic symptoms)? @ -Uncomplicated Side effects of treatment? @ -None Exacerbation, Progression, or Severe Exacerbation] @ -Not applicable Poses a threat to life or bodily function? @ -No Return precautions reviewed in depth, the patient is instructed to return to the emergency department with any new, worsening, or concerning symptoms. Patient verbalized understanding. This case was discussed in detail with the attending ED physician, Dr. Flores. Presentation, findings, and treatment plan discussed in detail as well. - Radiology Data Radiology results: report reviewed, image reviewed Disposition Clinical Impression: Lumbar disc herniation, Fall Disposition: HOME SELF-CARE Instructions (If sedation given, give patient instructions): Lumbar Disc Herniation (ED) Additional Instructions: Return to the emergency department with any new, worsening, or concerning symptoms. Take the Mobic once daily as needed for pain. Do not take any other anti-inflammatories such as ibuprofen with this. You can apply the lidocaine patches daily. Contact orthopedics as listed below for a follow-up appointment. Follow up with your primary care provider in 1-2 days. Prescriptions: Lidocaine 5% Patch [Lidoderm 5% Patch] 1 patch TOPICAL DAILY PRN #30 patch PRN Reason: Pain Meloxicam [Mobic] 15 mg PO DAILY PRN #15 tab PRN Reason: Pain Is patient prescribed a controlled substance at d/c from ED?: No Referrals: Kevin Ríos MD [Primary Care Provider] - 1-2 days Bryant Bravo DO [Doctor of Osteopathic Medicine] - 1-2 days
--- NOTE | 2022-11-04 08:06 | CT ---
EXAMINATION TYPE: CT brain cyndiine wo con DATE OF EXAM: 11/04/2022 COMPARISON: MRI brain 10/11/2015 HISTORY: Fell CT DLP: 1395.1 mGycm, Automated exposure control for dose reduction was used. CONTRAST: Patient injected with 0 mL of Isovue 300. CT of the brain is performed utilizing 3 mm thick sections through the posterior fossa and 3 mm thick sections through the remaining calvarium. Study is performed within 24 hours of arrival to the hospital. No abnormal hyperdensity is present to suggest an acute intracranial hemorrhage. No mass lesion is evident. Physiologic basal ganglion calcification is present bilaterally. No acute infarcts are evident. Ventricles and sulci are appropriate for the patient age. Paranasal sinuses and mastoid air cells within the [id number] are clear. Right septal deviation is noted. IMPRESSIONS: 1. No acute intracranial process. Follow-up MRI can be performed as clinically indicated. CT cervical spine. COMPARISON: None CT of the cervical spine is performed in the axial plane at 2 mm thick sections. Reconstructed image s in the coronal, and sagittal plane are reviewed on the computer. No acute fractures are evident. Vertebral body alignment is normal. Disc heights are preserved. Vertebral body heights are preserved. No spinal canal stenosis is evident. There is narrowing of the right foramen C4-5 IMPRESSIONS: 1. No acute osseous abnormality cervical spine. 2. Mild right foraminal narrowing at C4-5.
--- NOTE | 2022-11-04 08:15 | CT ---
EXAMINATION TYPE: CT lumbar spine wo con DATE OF EXAM: 11/04/2022 COMPARISON: None HISTORY: Fell backwards, low back pain CT DLP: 1592.6 mGycm CONTRAST: None TECHNIQUE: CT of the lumbar spine is performed on a spiral scan at 3 mm thick sections. Reconstructed images are performed in the coronal and sagittal planes. FINDINGS: T12-L1: There is some mild superior endplate deformity at T12. Adjacent swelling is not identified. T his is age-indeterminate. Correlate with location of the patient's pain. No posterior wall displaceme nt is evident. No focal disc herniation or significant disc bulge is evident. No spinal canal steno sis or neural foraminal stenosis is present. L1-L2: No focal disc herniation or significant disc bulge is evident. No spinal canal stenosis or n eural foraminal stenosis is present L2-L3: No focal disc herniation is evident. Mild broad-based disc bulge is present. Disc bulging has some mild anterior thecal sac contact without stenosis. Posterior longitudinal ligament calcification is present.. No spinal canal stenosis or neural foraminal stenosis is present. L3-L4: Broad-based disc bulge has anterior thecal sac contact. No AP spinal canal stenosis present. F acet hypertrophy is present with posterior lateral thecal sac impression. No spinal canal stenosis or neural foraminal stenosis is present L4-L5: No focal disc herniation or significant disc bulge is evident. No spinal canal stenosis is p resent. Facet hypertrophy has posterior lateral thecal sac compression. L5-S1: No focal disc herniation or significant disc bulge is evident. No spinal canal stenosis or n eural foraminal stenosis is present Vertebral alignment appears normal. There is a large cyst at inferior pole right kidney measuring 8.1 cm. IMPRESSION: 1. Mild disc bulging has anterior thecal sac contacting without AP spinal canal stenosis L2-3, L3-4. 2. Facet hypertrophy and ligamentum flavum laxity has posterior lateral thecal sac compression at L3- 4 and L4-5. 3. Age-indeterminate mild superior endplate compression T12. Correlate with location of the patient's pain.
[2022-11-04] MEDS ORDERED: KETOROLAC 15 MG/ML 1 ML VIAL IM STA (08:23)
[2022-11-04] MEDS ORDERED: IBUPROFEN 600 MG STARTER PACK 4 TAB BTL PO STA (08:32)
[2022-11-04] MEDS ORDERED: traMADol 50 MG STARTER PACK 3 TAB BTL PO STA (08:32)
[2022-11-04 09:36] VITALS: BP 166/94; PULSE 63; TEMP 98.4
== END 2022-11-04 09:22 | disposition home or self-care (01) ==
LOC: EC 05:56
DX: M51.36 Other intervertebral disc degeneration, lumbar region (principal); M47.819 Spondylosis without myelopathy or radiculopathy, site unspecified; M48.02 Spinal stenosis, cervical region; J44.9 Chronic obstructive pulmonary disease, unspecified; M19.90 Unspecified osteoarthritis, unspecified site; F41.9 Anxiety disorder, unspecified; Z79.02 Long term (current) use of antithrombotics/antiplatelets; Z79.899 Other long term (current) drug therapy; Z88.2 Allergy status to sulfonamides; W01.0XXA Fall on same level from slipping, tripping and stumbling without subsequent striking against object, initial encounter; Y92.810 Car as the place of occurrence of the external cause
CPT/HCPCS: 72125; 72131; 70450; 99284; 96372; J1885

== ENCOUNTER → 2022-11-09 | Outpatient (CLI) | payer MEDICARE ==
[2022-11-09 20:13] LABS: Basophils # (A) 0.07 X 10*3/uL (0.00-0.10); Eosinophils # (A) 0.64 X 10*3/uL (0.04-0.35); Eosinophils % (A) 8.9 %; HCT 45.2 % (37.2-46.3); HGB 14.2 d/dL (12.0-15.0); Lymphocytes % (A) 22.3 %; MCH 30.1 pg (27.0-32.0); MCHC 31.4 d/dL (32.0-37.0); Mean Platelet Volume 10.4 FL (9.5-12.2); Monocytes # (A) 0.85 X 10*3/uL (0.20-1.00); Monocytes % (A) 11.8 %; NRBC Per 100 WBC 0 X 10*3/uL (0.00-0.01); Neutrophils # (A) 3.98 X 10*3/uL (1.80-7.70); Neutrophils % (A) 55.3 %; Platelet Count 299 X 10*3/uL (140-440); RBC 4.71 X 10*6/uL (4.10-5.20); RDW 12.1 % (11.5-14.5); WBC 7.19 X 10*3/uL (4.50-10.00)
[2022-11-09 20:17] LABS: Blood Urea Nitrogen 12.6 mg/dL (9.0-27.0); Calcium 9.4 mg/dL (8.7-10.3); Carbon Dioxide 25.5 mmol/L (21.6-31.8); Chloride 107 mmol/L (96-109); Glucose 82 mg/dL (70-110); Potassium 4.9 mmol/L (3.5-5.5); Sodium 142 mmol/L (135-145)
[2022-11-09 20:21] LABS: INR 0.95 sec (0.93-1.11); Prothrombin Time 10.8 sec (9.9-11.9)
== END | disposition home or self-care (01) ==
LOC: LABPAT 12:05
PROVIDERS: ATTEND Orthopaedic Surgery
DX: Z01.812 Encounter for preprocedural laboratory examination (principal); S22.080A Wedge compression fracture of T11-T12 vertebra, initial encounter for closed fracture; R00.1 Bradycardia, unspecified; R94.31 Abnormal electrocardiogram [ECG] [EKG]; Y99.9 Unspecified external cause status
CPT/HCPCS: 80048; 85025; 85610; 87070; 93005

== ENCOUNTER 2022-11-14 06:46 | Day surgery (SDC) | payer MEDICARE ==
[2022-11-14] MEDS ORDERED: LACTATED RINGERS 1,000 ML IV SCH (06:47)
[2022-11-14] MEDS ORDERED: LIDOCAINE 1% (10MG/ML) FOR IV START INTRADERMA PRN (06:47)
[2022-11-14] MEDS ORDERED: ONDANSETRON 4 MG/2 ML VIAL IVP ONE ×2 (06:47→08:15)
[2022-11-14] MEDS ORDERED: HYDROmorphone 0.5 MG/0.5 ML SYRINGE IVP PRN (07:00)
--- NOTE | 2022-11-14 07:56 | P.HPOR ---
History of Present Illness H&P Date: 11/14/22 .T:Title: [facility] Date of :[birth year] R14 Allergies: Age: 82 year Height: 5'6" Weight: 210 lbs BP:/ BMI: 33.89 kg/m2 Occupation: VAS: CHIEF COMPLAINT: back pain DOI: DOS: HISTORY : Xrays brought xrays from outside facility which were reviewed New xrays taken in office Trauma or injury yes Work-Related No Pain description sharp. Location posterior Activity Modification yes Hand Dominance right TREATMENTS COMPLETED: 6 weeks of PT completed? Month and Year of last PT date? No Physician directed home exercise completed? yes Medications yes List: NOrco, gabapentin, flexeril Alternative interventions Chiropractic: No Massage therapy: No R.I.C.E: yes Brace: Yes How long was brace worn? * Did it help? Injections No RFA: No SUBJECTIVE: 82 yop female presents with c/o mid to lower back pain that has been going on now for two weeks. She had an incident that started it but is unsure if it was a single event or several. She has had falls in the past as well as "slumps" that have aggravated the pain in her lower back. She states sharp pain with motion and walking. It is making her ADLs very difficult. She has tried medications, bracing and home exercises, ice, rest with out abatement of her symptoms. She states no numbness/tinglng/bowel/bladder issues at this time. She states she just wants the pain to go away. HPI: The patients' past social, medical, family, surgical history, as well as review of systems, have been reviewed. Please refer to the Neurosurgery History and Physical form that has been scanned in to our electronic medical record system. 14 points review of systems completed and as stated in HPI, all other systems reviewed are negative. Social History: Reviewed, see appropriate section of the chart for details. P3 Family History: Reviewed, see appropriate section of the chart for details. P2 Past Medical History: Reviewed, see appropriate section of the chart for details. P1 Current Medications: Rx: aspirin 81 mg tablet,delayed release Ref: 0 Instructions: take 1 tablet (81 mg) by oral route once daily Rx: atorvastatin 20 mg tablet Ref: 0 Instructions: take 1 tablet (20 mg) by oral route once daily Rx: citalopram 40 mg tablet Ref: 0 Instructions: take 1 tablet (40 mg) by oral route once daily Rx: metoprolol tartrate 50 mg tablet Ref: 0 Instructions: take 1 tablet (50 mg) by oral route 2 times per day with meals Rx: Plavix 75 mg tablet Ref: 0 Instructions: take 1 tablet (75 mg) by oral route once daily Rx: traZODone 50 mg tablet Ref: 0 Instructions: take 1 tablet (50 mg) by oral route once daily at bedtime Rx: TylenoL Ref: 0 P1 PHYSICAL EXAMINATION: General: Awake, alert, appropriate for age, in no acute distress. HEENT: No unusual neck masses around region of lateral neck triangle, thyroid, supraclavicular groove Extremities: Skin warm and dry without acute lesions, coloration, temperature, skin intact, no tenderness or erythema Integument: Hairy patches: ABSENT Dorsal skin dimples: ABSENT Cafe au lait spots: ABSENT Surgical incisions: NA Palpation: Please see Pain drawing on Intake sheet for further detail. Midline spinal tenderness: YES T12 region E6 Cervical Tenderness: No E6 Paralumbar tenderness: YEs E6 Parathoracic tenderness: No E6 Buttocks tenderness: No E6 POSTURAL and MUSCULO-SKELETAL EVALUATION: Coronal Balance: NEUTRAL Recumbent testing: Patient is able to lay flat on back Sagittal Balance: POS Shoulder Profile: LEVEL Pelvic Girdle: LEVEL Neck ROM: RESTRICTED Lumbar ROM: RESTRICTED WITH PAIN Shoulder ROM: Symmetrical Hip ROM: Symmetrical Knee ROM: Symmetrical Hands: Normal appearance, symmetrical Feet: Normal appearance, Symmetrical VASCULAR STATUS : LEFT RIGHT Wrist Pulses INTACT INTACT Pedal Pulses (Dors. pedis & post.tibialis) INTACT INTACT Color NORMAL NORMAL Edema Absent Absent NEUROLOGIC EXAMINATION: Mental Status:Awake and alert, fully oriented, with normal attention, concentration and memory, and fluent, appropriate speech. Cranial Nerves: I: Olfactory not tested. II: Visual acuity normal, no visual field deficit noted with confrontation. III,IV: Normal pupillary reflexes & intact extraocular movements without nystagmus. V,: Intact symmetrical facial sensation. VII: Intact symmetrical facial motor movement VIII: Hearing intact. IX,X: Intact gag, swallow, & normal voice. XI: Sternocleidomastoid, trapezius function intact. XII: Tongue midline with normal movements. MOTOR EXAM (0-5/5, N/T Muscle appearance: Symmetrical, without signs of atrophy or dystrophy UPPER EXTREMITY RIGHT LEFT Shoulder Abduction 5/5 5/5 Biceps 5/5 5/5 Triceps 5/5 5/5 Wrist Extension 5/5 5/5 Hand Intrnsics 5/5 5/5 Certified Addiction Counselor 5/5 5/5 Hand and finger dexterity intact bilaterally? yes Disdiadochokinesis examination negative bilaterally? yes LOWER EXTREMITY RIGHT LEFT Hip Flexion 5/5 5/5 Knee Extension 5/5 5/5 Knee Flexion /5 5/5 Dorsiflexion /5 5/5 Plantarflexion 5/ 5/5 EHL 5/5 5/5 FHL 5/5 5/5 Toe heel walk / heel-toe walk intact while maintaining satisfactory balance? Nodue to pain Squatting/straightening w/o assistance to a min of 60 degree knee flexion? No due to pain Single leg stance: Trendelenburg sign negative bilaterally REFLEXES(0-4/2, NT)Upper ExtremityLower Extremity Right 2 2 Left 2 2 Pathological Reflexes RIGHT LEFT Nolen's Absent Absent Clonus Absent Absent Babinski Absent Absent Sensory system (0-4, N/T) Test type RU TAHIRA RL LL Joint-Position 2 2 2 2 Vibration 2 2 2 2 Pain & LT sense 2 2 2 2 Dermatomal Deficit: None None None None Gait and Functional Evaluation: Ambulatory aids: Walker, Wheelchair due to her pain Steady gait RADIOGRAPHIC STUDIES: XRay Thoracic AP/lateral 2 views Lumbar AP/lateral 2 views taken at [facility] on 11/09/22 of Lumbar Spine: Images reviewed with pt. T12 VCF noted with 40% collapse and some local kyphotic changes due to the collapse. Multilevel degenerative changes noted overall. No other fractures noted. This fracture has progressed since CT done on 11/04/22. CT scan[facility] at [facility] from of Lumbar, Thoracic Spine: Images reviewed. T12 VCF noted with superior endplate involvement that is compressed <20% at this time. Multilevel spondylodic changes noted. NO other fractures or lesions. IMPRESSION: It was my pleasure to have seen and examined Laly. I reviewed the patient's clinical syndrome, physical findings, and imaging studies during the appointment today. It is my impression that the patient has a diagnosis of. 1. 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 Low back pain 3. Debility due to pain I outlined the natural course history without intervention and various interventional options. PLAN: Based on my findings I suggest the following course of action: - - I discussed treatment options with the patient, including operative and non- operative options, and they have elected to proceed with the following surgical procedure: T12 Kyphoplasty with biopsy The indications, risks, benefits, and alternatives to surgery were discussed with the patient and family at length. Specifically (but not limited to) the risks of infection, stiffness, recurrence of symptoms, need for revision surgery, local numbness, neurovascular injury, and blood clots were discussed. The patient's questions were answered. The decision to proceed was made. Consent will be obtained for the procedure. -Ambulate daily -Take medications as directed -Ice and rest for pain and swelling control. Spine Surgery Risk Review Ms. Galloway is presenting for evaluation of Mid to low back pain. It was my pleasure to have seen and examined Ms. Galloway. In our visit today we have had a chance to go over subjective complaints, physical examination findings and treatments including the natural course history without intervention and various interventional options. The patients imaging demonstrates: XRay Thoracic AP/lateral 2 views Lumbar AP/lateral 2 views taken at [facility] on 11/09/22 of Lumbar Spine: Images reviewed with pt. T12 VCF noted with 40% collapse and some local kyphotic changes due to the collapse. Multilevel degenerative changes noted overall. No other fractures noted. This fracture has progressed since CT done on 11/04/22. CT scancompleted at [facility] from of Lumbar, Thoracic Spine: Images reviewed. T12 VCF noted with superior endplate involvement that is compressed <20% at this time. Multilevel spondylodic changes noted. NO other fractures or lesions. On physical exam, Ms. Galloway demonstrates: TTP posterior midline over T12 with local kyposis noted and pain with motion. I have explained to the patient that as their condition progresses it will cause further neurological deficits and eventual paralysis. Based on the patients imaging, physical exam, and the rapid progression and disabling nature of their symptoms, at this time I recommend surgery in the form of a: T12 Kyphoplasty . I discussed the risk and benefits of this procedure at length with Ms. Galloway. The patient family at bedside agreed to considered pursuing the procedure abovementioned. Prior to surgery, she should follow up with her PCP (Cardio, ID, IM etc) for clearance. Questions were invited and answered, and the patient wishes to proceed as outlined below. Currently, I am recommendin.T12 kyphoplasty with biopsy 2.Follow up with PCP for surgical clearance 3.Review of surgical risks and benefits as well as an educational packet on the proposed surgical procedure. Risks: All surgical procedures come with inherent risks, including those related to positioning, anesthesia, intraoperative findings, and postoperative complications. It is important to understand that surgery does not come with any guarantee of a successful outcome as complications and adverse events are always possible. The patient was given a handout in office today discussing the surgical procedure and risks associated with the intervention, both of which were discussed with the patient. These risks include but are not limited to the following: * Experiencing same, different or even worse symptoms in back, neck, arms, or legs compared to before surgery. Requiring further surgery or other forms of treatment presently or at some time in the future at same or other levels of the intended spine surgery. On an extreme but fortunately relatively rare basis severe complication such as blindness, stroke, heart attack, temporary and/or permanent nerve injury, paralysis, coma, or may occur, sometimes without known explanation. Surgical complications may include but are not limited to risk of infection, fluid accumulation in the surgical dissection site, including a seroma or hematoma, that requires additional surgery, wound drainage, bleeding, new numbness or weakness, vision changes/loss, spinal fluid leakage, non-healing and/or infected incision, headaches, difficulty or inability to swallow, hoarseness, hemopneumothorax, pneumothorax, impotence, retrograde ejaculation, vaginal dryness; injury to nerves, spinal cord, blood vessels, lymphatics or other vital organs (i.e., bowel injury, injury to the great vessels); heterotopic bone formation; complications related to the hardware such as screws, rods, cages including misplaced hardware, device failure, instrumentation at the wrong spine level, hardware fracture/breakage, or hardware loosening; vertebral failure of the spinal column above or below the newly placed hardware; retained surgical instrumentations or devices and the need for further surgery. * Medical risks of the planned spine surgery include but are not limited to generalized Infections to the whole body or local areas outside of the surgical site (sepsis), heart attack, bleeding, anaphylaxis, meningitis, seizure, epilepsy, hearing loss, burn estrada, laceration of the head or other areas of the body, bruising, hypersensitivity of the skin, bladder over distension; allergic reaction; shoulder injury related to positioning; fat, blood and air clots to other areas of the body like heart, lungs, brain; failure of internal organs such as lungs, kidneys, liver and excessive bleeding. If blood transfusions are necessary, note that transfusions may cause intolerance reactions such as anaphylaxis or other complex reactions. Despite best efforts, the results of spine surgery might not heal in terms of bone, soft tissues such as skin, fascia, ligaments, and joints. Additionally, in order to achieve best possible results, spine surgery may be carried out beyond the initially planned levels and involve decompression, fusion including insertion of hardware at levels other than the original intended area of surgical interest change some portions of the procedure in order to ensure the best possible outcomes. With spine surgery and spinal fusion, there are different off label uses of instrumentation (devices, implants and hardware) as well as biological substances (bone morphogenic proteins, demineralized bone matrix) as well as using extra bone from allograft sources (i.e. cadaver bone) or autograft (iliac crest bone, ribs, or the spine itself). The patient has been given information about these practices and their inherent risks and benefits. [facility] is an educational center that serves as a training facility for neurosurgical and orthopedic [employer] and Nursing students. Physician assistants are medically trained surgical providers who function in the outpatient, inpatient, and operating room setting under the direct supervision of the attending surgeon. [facility] has multiple operating rooms with single and overlapping rooms running daily. They currently function under the required guidelines as produced by the [facility] Finance Committee with regards to the overlapping rooms and will continue to comply with changes to this policy as they occur. The requirements include and are complied with as follows: (1) the critical portions of the overlapping rooms will not occur at the same time, (2) the attending physician will be physically present during the critical portions of the procedure and immediately available during the entire case, and (3) a back-up attending is designated should the primary attending not be immediately available. The patient has had a chance to review all the listed information, has been given print outs detailing this information, and has had all his/her questions answered to their satisfaction. It was my pleasure to have seen and examined Ms. Galloway. In our visit today we have had a chance to go over my understanding of our patient's current condition, the natural course history without intervention and various interventional options. Questions were invited and answered, and the patient wishes to proceed as outlined above. I have seen and examined the patient for 25 minutes and we have spent more than 50% of the time in repeat and detailed counseling about the patient's condition, its natural course history with out and as much as can be predicted with surgery and re-review of various surgical treatment options. In conclusion, Ms. Galloway and and family requested we proceed with the above suggested surgery and are willing to accept risks and limitations of the suggested surgery as nature of the disease process and our best attempts at treatment for the condition. Thank you again for allowing us to be part of your patient's care. Please don't hesitate to contact me if you have any further questions. Follow-up: Post procedure Patient Education: (Informational booklet, instructions, etc) given at today's appointment: Yes .ED:Patient Education: Y Plan at next visit: X-ray Medications Reviewed: YES In our visit today Ms. Vázquez and I have had a chance to go over my understanding of the patient's current condition, the natural course history without intervention and various interventional options. Questions were invited and answered, and the patient wishes to proceed as outlined above. I will be sure to keep you updated afterMs. Vázquez returns here for further follow-up. Thank you again for your referral. Please do not hesitate to contact me if you have any further questions. Signed and authenticated by: Darron Reece [facility] [address] [place] [phone] This message is confidential, intended only for the named recipient(s) and may contain information that is privileged or exempt from disclosure under applicable law. If you are not the intended recipient(s), you are notified that the dissemination, distribution or copying of this information is strictly prohibited. If you received this message in error, please notify the sender then delete this message. # SIGNED BY Darron Lawson (NASIM)11/14/2022 06:46AM Past Medical History Past Medical History: COPD, Hyperlipidemia, Hypertension, Osteoarthritis (OA) History of Any Multi-Drug Resistant Organisms: None Reported Past Surgical History: Orthopedic Surgery Additional Past Surgical History / Comment(s): RIGHT arthroscopy knee & hand surg., cataracts removed Past Anesthesia/Blood Transfusion Reactions: No Reported Reaction, Family History of Problems w/ Anesthesia Additional Past Anesthesia/Blood Transfusion Reaction / Comment(s): sister n/v Past Psychological History: Anxiety Smoking Status: Never smoker Past Alcohol Use History: Occasional Past Drug Use History: None Reported - Past Family History Mother Family Medical History: No Reported History Medications and Allergies Home Medications Medication Instructions Recorded Confirmed Type Aspirin 325 mg PO BID #60 tab 12/18/17 11/12/22 Rx Citalopram Hydrobromide [CeleXA] 40 mg PO QAM 01/16/18 11/12/22 History Metoprolol Tartrate [Lopressor] 50 mg PO BID 01/16/18 11/12/22 History Lidocaine 5% Patch [Lidoderm 5% 1 patch TOPICAL DAILY PRN #30 patch 11/04/22 11/12/22 Rx Patch] Atorvastatin [Lipitor] 20 mg PO QAM 11/12/22 11/12/22 History Clopidogrel [Plavix] 75 mg PO QAM 11/12/22 11/12/22 History traZODone HCL [Desyrel] 50 mg PO HS PRN 11/12/22 11/12/22 History Allergies Allergy/AdvReac Type Severity Reaction Status Date / Time Sulfa (Sulfonamide Allergy Rash/Hives Verified 11/12/22 09:31 Antibiotics) Physical Examination Osteopathic Statement: *. No significant issues noted on an osteopathic structural exam other than those noted in the History and Physical/Consult.
[2022-11-14] MEDS ORDERED: ACETAMINOPHEN TAB 500 MG TAB ONE (08:09)
[2022-11-14] MEDS ORDERED: KETOROLAC 15 MG/ML 1 ML VIAL ONE (08:10)
[2022-11-14] MEDS ORDERED: MELOXICAM 7.5 MG TAB PO ONE (08:15)
[2022-11-14] MEDS ORDERED: GABAPENTIN 300 MG CAP PO ONE (08:15)
[2022-11-14] MEDS ORDERED: ePHEDrine 50 MG/ML 1 ML VIAL ONE (08:20)
[2022-11-14] MEDS ORDERED: PROPOFOL 10 MG/ML 20 ML VIAL IV ONE (08:20)
[2022-11-14] MEDS ORDERED: fentaNYL (PF) 50 MCG/ML 2 ML AMP ONE (08:20)
[2022-11-14] MEDS ORDERED: SUCCINYLCHOLINE CHLORIDE 200 MG/10 ML VIAL IV ONE (08:20)
[2022-11-14] MEDS ORDERED: LIDOCAINE 2% INJ 20 MG/ML (2 ML VIAL) ONE (08:20)
[2022-11-14] MEDS ORDERED: IOPAMIDOL M200 10 ML VIAL MISCELLANE ONE (08:50)
[2022-11-14] MEDS ORDERED: LIDOCAINE 0.5%-EPI 1:200,000 50 ML VIAL SQ ONE ×2 (08:52)
--- NOTE | 2022-11-14 09:28 | P.OP ---
Date of Procedure: 11/14/22 Preoperative Diagnosis: 1. 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 LOW BACK PAIN Postoperative Diagnosis: 1. 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 LOW BACK PAIN Procedure(s) Performed: 1. T12 BIOPSY WITH KYPHOPLASTY Implants: CEMENT Anesthesia: CHOLOA Surgeon: Darron Lawson Estimated Blood Loss (ml): 2 IV fluids (ml): 500 Urine output (ml): 0 Pathology: other (T12 VERTEBRAL BODY) Condition: stable Disposition: PACU Indications for Procedure: Ms. Galloway is presenting for evaluation of Mid to low back pain. It was my pleasure to have seen and examined Ms. Galloway. In our visit today we have had a chance to go over subjective complaints, physical examination findings and treatments including the natural course history without intervention and various interventional options. The patients imaging demonstrates: XRay Thoracic AP/lateral 2 views Lumbar AP/lateral 2 views taken at [facility] on 11/09/22 of Lumbar Spine: Images reviewed with pt. T12 VCF noted with 40% collapse and some local kyphotic changes due to the collapse. Multilevel degenerative changes noted overall. No other fractures noted. This fracture has progressed since CT done on 11/04/22. CT scan[facility] at [facility] from of Lumbar, Thoracic Spine: Images reviewed. T12 VCF noted with superior endplate involvement that is compressed <20% at this time. Multilevel spondylodic changes noted. NO other fractures or lesions. On physical exam, Ms. Galloway demonstrates: TTP posterior midline over T12 with local kyposis noted and pain with motion. I have explained to the patient that as their condition progresses it will cause further neurological deficits and eventual paralysis. Based on the patients imaging, physical exam, and the rapid progression and disabling nature of their symptoms, at this time I recommend surgery in the form of a: T12 Kyphoplasty . I discussed the risk and benefits of this procedure at length with Ms. Galloway. The patient family at bedside agreed to considered pursuing the procedure abovementioned. Prior to surgery, she should follow up with her PCP (Cardio, ID, IM etc) for clearance. Questions were invited and answered, and the patient wishes to proceed as outlined below. Currently, I am recommendin.T12 kyphoplasty with biopsy Description of Procedure: kYPHOPLASTY The patient was seen and examined in the preoperative area. All preoperative protocols were followed. Informed consent was obtained, risks and benefits of the procedure were discussed at length. Risks including bleeding infection damage to the surrounding tissue and risk of re-operation were discussed with the patient. Risk of anesthesia up to and including was discussed with the patient. These are outlined in the risk review. They were willing to accept these risks and all the risks of surgery. The patient was given a weight-based dose of antibiotics in the form of 2 g Ancef. The patient was seen and evaluated by the anesthesia team who deemed them fit for surgery. The site was marked, the patient was willing to proceed with the procedure. The patient was transferred to the operative suite by the Department of anesthesia. They were then drifted off to sleep by the department anesthesia and GETA was performed. The patient tolerated this well. Once confirmation of lines and ventilation the patient was transferred to a prone Manan table very carefully. All bony prominences including wrists, elbows, axilla, chest, hips, and thighs, and feet were padded very well. Special attention was paid to the genitalia, and these were padded accordingly. SCDs were placed on bilateral lower extremities and were connected. Arms were well padded and placed on arm boards up and out in the 90/90 position. Once in position, again we confirmed good ventilation capabilities and that lines were running appropriately. The patients Lumbar spine was then exposed. 1010s were placed outlining the incision site. Standard alcohol was used to clean the incision site and allowed to dry. C-arm was used to needle localize the pedicles at T12 and bio-cynthia the patient and confirm level for incision which was marked with a skin marker. O perative briefing was performed with all teams and everyone in agreement to proceed. The patient was then prepped and draped in a normal sterile fashion. Timeout was then performed, and all parties agreed with the procedure to be performed. Skin sidney was made. Jamshitdis was passed into the T12 vertebral body via the pedicle. This was done with biplane fluoroscopy. Once in good position in the body the trochar removed. Biopsy needle was passed into the body and biopsy taken. Drill was then passed and biopsy material taken from drill as well. Curette used to make space and reduce the fracture. Balloon was then passed an inflated which showed reduction of endplate on AP and Lateral and confirmed central placement. Cement was then placed bilaterally under flouroscopic guidance. Good fill of cement was seen without extravasation. Pt remained stable through process. Once good fill, the Jamshedi was removed and the wound irrigated. AP and lateral confirmed good reduction of the fracture and good cement fill. The skin was closed with a simple stitch and dressed with glue and a bandaid. The patient was then transferred off the table back to their hospital bed a- traumatically. They were extubated by the department of anesthesia. They were then transferred to PACU in stable condition having tolerated the procedure with no complications.
[2022-11-14 09:30] VITALS: TEMP 97
[2022-11-14 10:17] VITALS: BP 181/75; PULSE 68; RESP 16
--- NOTE | 2022-11-14 12:41 | XR ---
Intraoperative/procedural fluoroscopic services were provided for T12 vertebral augmentation. Total f luoroscopy time is 34 seconds with a total of 8 submitted images to PACS. Total DAP 7.[address] ease see the operative note for further details.
== END 2022-11-14 11:07 | disposition home or self-care (01) ==
LOC: OR 06:46
PROVIDERS: ATTEND Orthopaedic Surgery
DX: S22.080A Wedge compression fracture of T11-T12 vertebra, initial encounter for closed fracture (principal); E78.5 Hyperlipidemia, unspecified; I10 Essential (primary) hypertension; M19.90 Unspecified osteoarthritis, unspecified site; Z79.899 Other long term (current) drug therapy; J44.9 Chronic obstructive pulmonary disease, unspecified; Z98.890 Other specified postprocedural states; F41.9 Anxiety disorder, unspecified; Z79.02 Long term (current) use of antithrombotics/antiplatelets; Z79.891 Long term (current) use of opiate analgesic; Z88.2 Allergy status to sulfonamides
CPT/HCPCS: 22513; 88307; 88311; 72070; J0330; J0690; J2405; J3010; J1885; J2704; Q9966; J2001

== ENCOUNTER 2022-12-02 00:39 | Emergency (ER) | payer MEDICARE ==
--- NOTE | 2022-12-02 00:43 | ED ---
Recheck HPI - General Stated Complaint: Neck Pain Time Seen by Provider: 12/02/22 00:42 Source: RN notes reviewed, old records reviewed Mode of arrival: EMS Limitations: no limitations - History of Present Illness Initial Comments: This is a 82-year-old female to the emergency department for evaluation. Patient presents for evaluation of severe back pain after back surgery. Patient has persistent back pain here in the emergency department severe wrapping around her abdomen. Patient has no loss of bowel or bladder is able to ambulate without significant difficulty but presents by EMS for pain. MD Complaint: medication refill request -: hour(s) Returns Today for: persistent/worsening pain related to initial visit Symptoms Since Prior Visit: worsening pain Treatments Prior to Arrival: Given Pain Meds on - Related Data Home Medications Medication Instructions Recorded Confirmed Citalopram Hydrobromide [CeleXA] 40 mg PO QAM 01/16/18 11/14/22 Metoprolol Tartrate [Lopressor] 50 mg PO BID 01/16/18 11/14/22 Atorvastatin [Lipitor] 20 mg PO QAM 11/12/22 11/14/22 Clopidogrel [Plavix] 75 mg PO QAM 11/12/22 11/14/22 traZODone HCL [Desyrel] 50 mg PO HS PRN 11/12/22 11/14/22 Previous Rx's Medication Instructions Recorded Aspirin 325 mg PO BID #60 tab 12/18/17 Lidocaine 5% Patch [Lidoderm 5% 1 patch TOPICAL DAILY PRN #30 patch 11/04/22 Patch] HYDROcodone/APAP 5-325MG [[place] 1 tab PO Q4HR PRN 3 Days #18 tab 11/14/22 5-325] HYDROcodone/APAP 5-325MG [[place] 1 tab PO Q6HR PRN #12 tab 12/02/22 5-325] Allergies Allergy/AdvReac Type Severity Reaction Status Date / Time Sulfa (Sulfonamide Allergy Rash/Hives Verified 11/14/22 08:03 Antibiotics) Review of Systems ROS Statement: Those systems with pertinent positive or pertinent negative responses have been documented in the HPI. ROS Other: All systems not noted in ROS Statement are negative. Past Medical History Past Medical History: COPD, Hyperlipidemia, Hypertension, Osteoarthritis (OA) History of Any Multi-Drug Resistant Organisms: None Reported Past Surgical History: Orthopedic Surgery Additional Past Surgical History / Comment(s): RIGHT arthroscopy knee & hand surg., cataracts removed Past Anesthesia/Blood Transfusion Reactions: No Reported Reaction, Family History of Problems w/ Anesthesia Additional Past Anesthesia/Blood Transfusion Reaction / Comment(s): sister n/v Past Psychological History: Anxiety Smoking Status: Never smoker Past Alcohol Use History: Occasional Past Drug Use History: None Reported - Past Family History Mother Family Medical History: No Reported History General Exam General appearance: alert, in no apparent distress Head exam: Present: atraumatic, normocephalic, normal inspection Eye exam: Present: normal appearance, PERRL, EOMI. Absent: scleral icterus, conjunctival injection, periorbital swelling ENT exam: Present: normal exam, mucous membranes moist Neck exam: Present: normal inspection. Absent: tenderness, meningismus, lymphadenopathy Respiratory exam: Present: normal lung sounds bilaterally. Absent: respiratory distress, wheezes, rales, rhonchi, stridor Cardiovascular Exam: Present: regular rate, normal rhythm, normal heart sounds. Absent: systolic murmur, diastolic murmur, rubs, gallop, clicks GI/Abdominal exam: Present: soft, normal bowel sounds. Absent: distended, tenderness, guarding, rebound, rigid Extremities exam: Present: normal inspection, full ROM, normal capillary refill. Absent: tenderness, pedal edema, joint swelling, calf tenderness Back exam: Present: normal inspection Neurological exam: Present: alert, oriented X3, CN II-XII intact Psychiatric exam: Present: normal affect, normal mood Skin exam: Present: warm, dry, intact, normal color. Absent: rash Course Vital Signs 12/02/22 12/02/22 03:22 07:49 Pulse Rate 53 L 58 L Respiratory 18 18 Rate Blood Pressure 156/69 148/85 O2 Sat by Pulse 95 96 Oximetry - Reevaluation(s) Reevaluation #1: 12/02/22 02:17 Medical record is reviewed Reevaluation #2: 12/02/22 02:17 Patient's pain is improving Reevaluation #3: Patient informed of results questions answered Reevaluation #4: 12/02/22 02:18 Was pt. sent in by a medical professional or institution (, PA, MEMBERSHIP ADMINISTRATOR, urgent care, hospital, or long-term...) When possible be specific @ -no Did you speak to anyone other than the patient for history (EMS, parent, family, police, friend...)? What history was obtained from this source @ -no Did you review nursing and triage notes (agree or disagree)? Why? @ -agree Are old charts reviewed (outside hosp., previous admission, EMS record, old EKG, old radiological studies, urgent care reports/EKG's, long-term records)? Report findings @ -yes Differential Diagnosis (chest pain, altered mental status, abdominal pain women, abdominal pain men, vaginal bleeding, weakness, fever, dyspnea, syncope, he adache, dizziness, GI bleed, back pain, seizure, CVA, palpatations, mental health, musculoskeletal)? @ -prior EKG interpreted by me (3pts min.). @ -no X-rays interpreted by me (1pt min.). @ -no CT interpreted by me (1pt min.). @ -yes U/S interpreted by me (1pt. min.). @ -no What testing was considered but not performed or refused? (CT, X-rays, U/S, labs)? Why? @ -none What meds were considered but not given or refused? Why? @ -none Did you discuss the management of the patient with other professionals (professionals i.e. , PA, MEMBERSHIP ADMINISTRATOR, lab, RT, psych nurse, social insurance analyst, net developer programmer, teacher, chief growth officer, casework specialist)? Give summary @ -no Was smoking cessation discussed for >3mins.? @ -no Was critical care preformed (if so, how long)? @ -no Were there social determinants of health that impacted care today? How? (Homelessness, low income, unemployed, alcoholism, drug addiction, transportation, low edu. Level, literacy, decrease access to med. care, custodial, rehab)? @ -none Was there de-escalation of care discussed even if they declined (Discuss DNR or withdrawal of care, Hospice)? DNR status @ -no What co-morbidities impacted this encounter? (DM, HTN, Smoking, COPD, CAD, Canc er, CVA, ARF, Chemo, Hep., AIDS, mental health diagnosis, sleep apnea, morbid obesity)? @ -none Was patient admitted / discharged? Hospital course, mention meds given and route, prescriptions, significant lab abnormalities, going to OR and other pertinent info. @ - 82 female to the emergency department today for evaluation postoperative back pain severe. Pain was getting better after surgery but is significantly increased in symptoms. No neurological complaints no loss of bowel or bladder no other issues. Patient's pain is well-controlled here in the ER she is able to ambulate and can be discharged home Discharge Undiagnosed new problem with uncertain prognosis? @ -no Drug Therapy requiring intensive monitoring for toxicity (Heparin, Nitro, Insulin, Cardizem)? @ -no Were any procedures done? @ -no Diagnosis/symptom? @ -Postoperative back pain Acute, or Chronic, or Acute on Chronic? @ -Acute Uncomplicated (without systemic symptoms) or Complicated (systemic symptoms)? @ -Complicated Side effects of treatment? @ -no Exacerbation, Progression, or Severe Exacerbation? @ -exacerbation Poses a threat to life or bodily function? How? (Chest pain, [place], [place], pneumonia, PE, COPD, DKA, ARF, appy, cholecystitis, CVA, Diverticulitis, Homicidal, Suicidal, threat to staff... and all critical care pts) @ -yes postoperative complications back pain, postoperative back pain Reevaluation #5: 12/02/22 02:18 Differential Back Pain: Strain, zoster, cauda equina syndrome, epidural abscess, vertebral osteomyelitis, discitis, fracture, subluxation, disc herniation, DJD, spinal stenosis, dissection, AAA, pancreatitis, peptic ulcer disease, pyelonephritis, kidney stone, this is not meant to be an all-inclusive list. Medical Decision Making - Medical Decision Making 82 female to the emergency department today for evaluation postoperative back pain severe. Pain was getting better after surgery but is significantly increased in symptoms. No neurological complaints no loss of bowel or bladder no other issues. Patient's pain is well-controlled here in the ER she is able to ambulate and can be discharged home - Radiology Data Radiology results: report reviewed (CT of the TL spine is negative for acute disease), image reviewed Disposition Clinical Impression: Postoperative pain, Thoracic back pain, Mechanical back pain Disposition: HOME SELF-CARE Condition: Good Instructions (If sedation given, give patient instructions): Pain Management After Surgery (DC), Acute Low Back Pain (ED) Prescriptions: HYDROcodone/APAP 5-325MG [[place] 5-325] 1 tab PO Q6HR PRN #12 tab PRN Reason: Pain Is patient prescribed a controlled substance at d/c from ED?: No Referrals: Kevin Ríos MD [Primary Care Provider] - 1-2 days Time of Disposition: 07:20
[2022-12-02] MEDS ORDERED: HYDROcodone/APAP 5-325MG 1 EACH TAB PO STA (01:26)
[2022-12-02 03:28] VITALS: RESP 18
[2022-12-02] MEDS ORDERED: KETOROLAC 15 MG/ML 1 ML VIAL IVP STA (06:16)
[2022-12-02] MEDS ORDERED: MORPHINE SULFATE 4 MG/ML SYRINGE IVP STA (06:16)
--- NOTE | 2022-12-02 07:20 | CT ---
EXAMINATION TYPE: CT thor lumbar spine wo con CT DLP: 1709.4 mGycm, Automated exposure control for dose reduction was used. DATE OF EXAM: 12/02/2022 2:48 AM COMPARISON: CT lumbar spine 11/04/2022, thoracic spine radiograph 11/29/2022. CLINICAL INDICATION:Female, 82 years old with history of sx; PHH, TECHNIQUE: Axial images of the thoracolumbar spine were obtained without contrast. Coronal and sagitt al reformats were performed. FINDINGS: Post surgical changes from vertebral augmentation involving the T12 vertebral body. There i s approximately 3 mm retropulsion. Paraspinal edema identified at this level. No organized fluid vanda ections. Soft tissue gas. No definitive osseous erosions. Remaining vertebral body heights are mainta ined. No acute fracture. Multilevel degenerative disc disease with disc space narrowing, endplate scl erosis, anterior osteophytosis. Minimal grade 1 anterolisthesis of L4 on L5. Posterior disc osteophyt e complex at T5-T6 with mild effacement of the anterior thecal sac. Broad-based disc bulge at L2-L3, L3-L4, and L4-L5 with mild effacement of anterior thecal sac. No significant neural foraminal stenosi s is identified. Multilevel vertebral hemangiomas. Large hiatal hernia containing greater than 50% in the stomach. Right hepatic lobe cyst measuring up to 3.1 cm. Inferior right renal 8.2 cm cyst. Left lower lobe subsegmental atelectasis. IMPRESSION: 1. Postsurgical changes from T12 vertebral augmentation. No surrounding fluid collections. 2. No acute fracture. 3. Mild multilevel degenerative disc disease. 4. Large hiatal hernia.
[2022-12-02] MEDS ORDERED: IBUPROFEN 600 MG STARTER PACK 4 TAB BTL PO STA (07:38)
[2022-12-02] MEDS ORDERED: traMADol 50 MG STARTER PACK 3 TAB BTL PO STA (07:38)
[2022-12-02] MEDS ORDERED: ACET/COD 300 MG/30 MG STARTER PACK 6 TAB BTL PO STA (07:38)
[2022-12-02 07:50] VITALS: BP 148/85; PULSE 58
== END 2022-12-02 07:50 | disposition home or self-care (01) ==
LOC: EC 00:39
DX: G89.18 Other acute postprocedural pain (principal); M54.6 Pain in thoracic spine; M54.9 Dorsalgia, unspecified; E78.5 Hyperlipidemia, unspecified; I10 Essential (primary) hypertension; J44.9 Chronic obstructive pulmonary disease, unspecified; F41.9 Anxiety disorder, unspecified; Z79.899 Other long term (current) drug therapy; Z88.2 Allergy status to sulfonamides
CPT/HCPCS: 72128; 72131; 99285; 96374; J1885

== ENCOUNTER → 2023-04-05 | Outpatient (CLI) | payer MEDICARE ==
--- NOTE | 2023-04-07 12:05 | BD ---
EXAMINATION TYPE: Axial Bone Density DATE OF EXAM: 04/05/2023 CLINICAL HISTORY: 82 years old Female. ICD-10 CODE: Z78.0 ASYMPTOMATIC MENOPAUSAL STATE Height: 66 Weight: 196.0 FRAX RISK QUESTIONS: Alcohol (3 or more units per day): no Family History (Parent hip fracture): no Glucocorticoids (More than 3mos): no (Ex: prednisone, prednisolone, methylprednisolone, dexamethasone, and hydrocortisone). History of Fracture in Adulthood: yes Secondary Osteoporosis: 1. Type 1 Diabetes: no 2. Hyperthyroidism: no 3. Menopause before 45: no 4. Malnutrition: no 5. Chronic liver disease: no Rheumatoid Arthritis: no Current Tobacco Use: no RISK FACTORS HISTORY OF: Spine Fracture: t-12 fx When: 3 months ago Surgery to Spine/Hip(right/left)/Wrist (right/left): no EXAM MEASUREMENTS: Bone mineral densitometry was performed using the [employer] System. Bone mineral density as measured about the Lumbar spine is: ----- L1-L4(G/cm2): 1.183 T Score Values are as follows: ----- L1: 0.7 ----- L2: 0.1 ----- L3: -0.2 ----- L4: -0.5 ----- L1-L4: 0.0 Z Score Values are as follows: ----- L1: 1.8 ----- L2: 1.1 ----- L3: 0.8 ----- L4: 0.5 ----- L1-L4: 1.1 Bone mineral density has: increased 4.5 % since study of: 2005 Bone mineral density about the R hip (g/cm2): 0.849 Bone mineral density about the L hip (g/cm2): 0.855 T Score values are as follows: -----R Neck: -1.1 -----L Neck: -1.4 -----R Total: -1.3 -----L Total: -1.2 Z Score values are as follows: -----R Neck: 0.6 -----L Neck: 0.2 -----R Total: 0.2 -----L Total: 0.3 Bone mineral density has: decreased -9.3 % since study of: 2005 FRAX%s: The graph provided illustrates a 18.5% chance for a major osteoporotic fx and a 3.9% chance f or the hips probability for fx in 10 years time. IMPRESSION: Osteopenia (T Score between -2.5 and -1). There is slightly increased risk of fracture and the patient may be considered for treatment. Re-Screen 2-5 years. NOTE: T-SCORE=SD OF THE YOUNG ADULT MEAN.
== END | disposition home or self-care (01) ==
LOC: RADBDWWP 07:46
PROVIDERS: ATTEND Family Medicine
DX: M85.89 Other specified disorders of bone density and structure, multiple sites (principal); Z78.0 Asymptomatic menopausal state
CPT/HCPCS: 77080

== ENCOUNTER → 2023-05-23 | Outpatient (CLI) | payer MEDICARE ==
[2023-05-23 09:32] VITALS: BP 132/76; PULSE 59; RESP 16; TEMP 99.2
--- NOTE | 2023-05-23 14:36 | P.PAINPG ---
PQRS Measure Charge Sheet Comment: HISTORY OF PRESENT ILLNESS: A 83 yr old female as a referral from Dr Lawson presents today w severe and chronic LBP since fall in Dec 2022 secondary to DDD, spondylosis and facet arthropathy without myelopathy for evaluation. Pt states pain level is provoked at 7 /10 in intensity, constant, localized in the lower lumbar spine, predominantly axial, achy in character without shooting pain. Pain is provoked by standing for periods > 20 min. Pain is alleviated by medications ([place] 7.5/325mg, Ibu), Icy-Hot topical, chiropractic treatments monthly x 1 yr w last visit in Aug 2022, physician guided home stretching regimen every morning since Apr 2023, use of a LSO, repositioning and rest. Oswestry axial pain score at 27. PMH: OA, COPD, Anxiety PSH: T12 Kyphoplasty (Oct 2022), BL Cataract Extractions, Arthroscopic Knee Surgery, Hand Surgery SH: No tobacco use, Occasional ETOH use, No illicit drug use FH: Mo- No Reported History All: See list Meds: See list REVIEW OF ORGAN SYSTEMS: CONSTITUTIONAL: No fevers or chills. No recent weight loss. NEUROLOGICAL: + numbness and tingling along the distal extremities. No seizure disorders or headaches. MUSCULOSKELETAL: + pain PSYCHIATRIC: Denies current depression or suicidal thoughts. Physical Examinations : Constitutional : Cooperative , not in acute distress . Neurologic : Cranial nerve II to XII intact. No focal neurological deficits. Psychiatric : alert & oriented x 3. Matching mood & appropriate affect. Judgment & insight intact. Musculoskeletal : Cervical Spine Motor strength in the deltoid and biceps: Normal right side. Normal Left side Motor strength biceps and the wrist extensors: Normal right side . Normal left side Motor strength in the triceps muscle: Normal right side. Normal left side Deep tendon reflexes: Normal at the biceps. Normal at Brachioradialis. Normal at triceps Vertebral body tenderness to deep palpation over Cervical facet loading test: positive bilaterally Spurling test: positive bilaterally Neck distraction test: positive skye aterally Diann sign: positive bilaterally Lumbar spine Motor strength lower extremities ,thigh and legs 5/5 Right side , 5/5 Left side Deep tendon reflexes : Normal Knee Jerk. Normal Ankle Jerk Vertebral body tenderness over Gloria Test positive Lumbar facet Loading Test: positive Right / positive Left L4-L5, L5-S1 Range of motion of the lumbar spine Flexion 30 degrees, extension 10 degrees Straight Leg Raise test: Left/ Right positive at degrees Tyler test: positive right / positive left. Severe tenderness over the Sacroiliac joint on the Right / Left sides Gaenslen test: positive bilaterally Seated flexion test: positive bilaterally. Sacral spine : Severe tenderness over the Sacroiliac joint: right side / left side Range of motion: Flexion of the lumbar spine <60 degrees Range of motion: Extension of the lumbar spine <20 degrees Gaenslen's Test positive Tyler test: positive right side / left side Thigh Thrust Test Sacral Thrust Test Imaging: MRI non contrast of the lumbar spine from Jan 18 2023 reviewed Assessment/ Plan : Lumbar DDD Recommendation of BL MBB L3-L5 #1 and PT integrated w therapeutic massage M51.36 . May need a series of injections, up until RFA, for optimal pain relief. Risks, benefits of procedure discussed and patient verbalized understanding. Admits to anti- coagulant use or medical history of diabetes. Protocol for discontinuation/ continuation of medications mauricio procedure discussed. Minimal anesthesia provided, if clinically indicated, consisting of Versed and Fentanyl. All questions answered. I have spent greater than 30 minutes on patient care today. Dr Esquivel was available by phone for the evaluation of this patient. The time was used to review the medical records including relevant urine studies and Prescription history (MAPs), review of the available imaging, evaluation and examination of the patient, coordination of care with the medical staff and if applicable referring physicians, as well as creation of the medical record PQRS Narrative: Smoking Status Never smoker Home Medications: Ambulatory Orders Aspirin 325 mg PO BID #60 tab 12/18/17 Citalopram Hydrobromide [CeleXA] 40 mg PO QAM 01/16/18 Metoprolol Tartrate [Lopressor] 50 mg PO BID 01/16/18 Lidocaine 5% Patch [Lidoderm 5% Patch] 1 patch TOPICAL DAILY PRN #30 patch 11/04/22 Atorvastatin [Lipitor] 20 mg PO QAM 11/12/22 Clopidogrel [Plavix] 75 mg PO QAM 11/12/22 traZODone HCL [Desyrel] 50 mg PO HS PRN 11/12/22 HYDROcodone/APAP 5-325MG [[place] 5-325] 1 tab PO Q4HR PRN 3 Days #18 tab 11/14/22 HYDROcodone/APAP 5-325MG [[place] 5-325] 1 tab PO Q6HR PRN #12 tab 12/02/22 Controlled Substance Measures - Controlled Substance Measures Is patient prescribed a controlled substance at discharge?: No
== END ==
LOC: PNWHC3 07:57
PROVIDERS: ATTEND Specialist
DX: M51.37 Other intervertebral disc degeneration, lumbosacral region (principal); M47.817 Spondylosis without myelopathy or radiculopathy, lumbosacral region; M19.90 Unspecified osteoarthritis, unspecified site; J44.9 Chronic obstructive pulmonary disease, unspecified; F41.9 Anxiety disorder, unspecified; Z79.82 Long term (current) use of aspirin; Z98.1 Arthrodesis status; Z88.2 Allergy status to sulfonamides; Z79.02 Long term (current) use of antithrombotics/antiplatelets; Z79.899 Other long term (current) drug therapy
CPT/HCPCS: 99211

== ENCOUNTER 2023-06-07 06:55 | Day surgery (SDC) | payer MEDICARE ==
[2023-06-07] MEDS: LACTATED RINGERS 1,000 ML IV SCH (08:41)
[2023-06-07 08:57] VITALS: TEMP 97.2
[2023-06-07] MEDS ORDERED: MIDAZOLAM 2 MG/2 ML VIAL ONE (09:36)
[2023-06-07] MEDS ORDERED: fentaNYL (PF) 50 MCG/ML 2 ML AMP ONE (09:36)
[2023-06-07] MEDS ORDERED: ROPIVACAINE 5MG/ML 20ML VIAL ONE (09:39)
--- NOTE | 2023-06-07 09:52 | P.PCN ---
Date of Procedure: 06/07/23 Procedure(s) Performed: PREOPERATIVE DIAGNOSIS : 1- Lumbar spondylosis with Facet Arthropathy with out myelopathy . 2- Lumber degenerative disc disease POSTOPERATIVE DIAGNOSIS: 1- Lumbar spondylosis with Facet Arthropathy without myelopathy . 2- Lumber degenerative disc disease PROCEDURE: Diagnostic bilateral L3,L4,L5 medial branch block under fluoroscopy guidance(fluoroscopy images available in the radiology Department ) ( To target the facet joint between Bilateral L4-5 , and L5- S1 )# 1st ANESTHESIA:, Monitored anesthesia care as per anesthesia department.. EBL: Minimal COMPLICATION: None PROCEDURE INDICATION: Chronic low back pain secondary to Facet arthropathy unresponsive to conservative treatment. PROCEDURE DESCRIPTION: the patient was seen and identified in the preop holding area , risks and benefits and possible complications of the procedure and alternative were discussed with the patient, and the patient agreed to proceed with the procedure and signed the consent and vital signs monitored during the procedure and fluoroscopy was used to maximize the benefit and accuracy of the needle placement, and sedation was given to decrease patient anxiety, patient was taken to the procedure room and placed in prone position v ital signs monitored in the back prepped with chlorhexidine X3 then under strict sterile technique using a right oblique fluoroscopy ,the junction of the transverse process and the superior articulating process of the right L3 , L4 , and L5 vertebra which corresponding to the fluoroscopy image of the eye of the Bony dog on the block side for the medial branches and subsequently , after local infiltration of skin and subcu tissuies with Ropivacaine 0.5 % , one mL at each level ,then 22-gauge Quincke-type needles , 3 needle was used , each one of them placed at the junction of the base of the transverse process and the superior articular process at the appropriate level, and the needle was advanced until the periosteum contacted, needle placement confirmed with AP oblique and lateral view and after appropriate needle placement confirmed, and after negative aspiration for heme and CSF and there was no paresthesia 1-1/2 mL of Ropivacaine 0.5% , then half mL injected at each level after negative aspiration the needle subsequently removed and the same procedure repeated for the left side at left side at L3 , L4 and L5 levels. At the end of the procedure and the needles removed and a bandage applied after the skin was cleaned the cleaning solution patient taken to recovery room in stable condition and monitors in the recovery room for 20-30 minutes and discharged home in stable condition after discharge criteria met and patient will follow up with the pain clinic in 2-4 weeks
[2023-06-07 10:39] VITALS: BP 137/73; PULSE 53; RESP 20
--- NOTE | 2023-06-07 12:21 | FL ---
EXAMINATION TYPE: FL guided pain mgmt statistic DATE OF EXAM: 06/07/2023 FLUOROSCOPY Fluoroscopy time of 7 seconds was used during bilateral lumbar facet blocks. 4 image/s document/s th e procedure. .39430 mGycm2 DAP
== END 2023-06-07 10:39 | disposition home or self-care (01) ==
LOC: ORPAIN 06:55
PROVIDERS: ATTEND Specialist
DX: M51.36 Other intervertebral disc degeneration, lumbar region (principal); M47.816 Spondylosis without myelopathy or radiculopathy, lumbar region; G89.29 Other chronic pain; I10 Essential (primary) hypertension; E78.5 Hyperlipidemia, unspecified; J44.9 Chronic obstructive pulmonary disease, unspecified; F41.9 Anxiety disorder, unspecified; Z88.2 Allergy status to sulfonamides; Z79.51 Long term (current) use of inhaled steroids; Z79.899 Other long term (current) drug therapy; Z79.82 Long term (current) use of aspirin; Z79.02 Long term (current) use of antithrombotics/antiplatelets
CPT/HCPCS: 64493; 64494 ×2; J2250; J3010; J2795; 99152

== ENCOUNTER → 2023-06-20 | Outpatient (CLI) | payer MEDICARE ==
[2023-06-20 13:18] VITALS: RESP 16
[2023-06-20 13:19] VITALS: PULSE 63; TEMP 98.3
--- NOTE | 2023-06-20 14:49 | P.PAINPG ---
Objective - Vital Signs Vital signs: Vital Signs Temp Pulse Resp 16 06/20/23 12:49 BP Pulse Ox FiO2 PQRS Measure Charge Sheet Mode of Arrival: Ambulatory Comment: HISTORY OF PRESENT ILLNESS: A 83 yr old female presents today w severe and chronic LBP since fall in Dec 2022 secondary to DDD, spondylosis and facet arthropathy without myelopathy for evaluation s/p BL MBB L3-L5. #1. Pt states she experienced 98 % pain relief x 4 hrs s/p procedure. Pt states pain level is provoked at 7 /10 in intensity, constant, localized in the lower lumbar spine, predominantly axial, achy in character without shooting pain. Pain is provoked by standing for periods > 20 min. Pain is alleviated by medications, topical, chiropractic treatments monthly x 1 yr w last visit in Aug 2022, physician guided home stretching regimen every morning since Apr 2023, use of a LSO, repositioning and rest. Oswestry axial pain score at 26. Interventional procedures include BL MBB L3-L5 x1 Medications include [place] 7.5/325mg, Ibu, Icy- Hot REVIEW OF ORGAN SYSTEMS: CONSTITUTIONAL: No fevers or chills. No recent weight loss. NEUROLOGICAL: + numbness and tingling along the distal extremities. No seizure disorders or headaches. MUSCULOSKELETAL: + pain PSYCHIATRIC: Denies current depression or suicidal thoughts. Physical Examinations : Constitutional : Cooperative , not in acute distress . Neurologic : Cranial nerve II to XII intact. No focal neurological deficits. Psychiatric : alert & oriented x 3. Matching mood & appropriate affect. Judgment & insight intact. Musculoskeletal : Cervical Spine Motor strength in the deltoid and glenny ps: Normal right side. Normal Left side Motor strength biceps and the wrist extensors: Normal right side . Normal left side Motor strength in the triceps muscle: Normal right side. Normal left side Deep tendon reflexes: Normal at the biceps. Normal at Brachioradialis. Normal at triceps Vertebral body tenderness to deep palpation over Cervical facet loading test: positive bilaterally Spurling test: positive bilaterally Neck distraction test: positive bilaterally Diann sign: positive bilaterally Lumbar spine Motor strength lower extremities ,thigh and legs 5/5 Right side , 5/5 Left side Deep tendon reflexes : Normal Knee Jerk. Normal Ankle Jerk Vertebral body tenderness over Gloria Test positive Lumbar facet Loading Test: positive Right / positive Left L4-L5, L5-S1 Range of motion of the lumbar spine Flexion 30 degrees, extension 10 degrees Straight Leg Raise test: Left/ Right positive at degrees Tyler test: positive right / positive left. Severe tenderness over the Sacroiliac joint on the Right / Left sides Gaenslen test: positive bilaterally Seated flexion test: positive bilaterally. Sacral spine : Severe tenderness over the Sacroiliac joint: right side / left side Range of motion: Flexion of the lumbar spine <60 degrees Range of motion: Extension of the lumbar spine <20 degrees Gaenslen's Test positive Tyler test: positive right side / left side Thigh Thrust Test Sacral Thrust Test Imaging: MRI non contrast of the lumbar spine from Jan 18 2023 reviewed Assessment/ Plan : Lumbar DDD Recommendation of BL MBB L3-L5 #2 . May need a series of injections, up until RFA, for optimal pain relief. Risks, benefits of procedure discussed and patient verbalized understanding. Admits to anti- coagulant use or medical history of diabetes. Protocol for discontinuation/ continuation of medications mauricio procedure discussed. Minimal anesthesia provided, if clinically indicated, consisting of Versed and Fentanyl. All questions answered. I have spent greater than 30 minutes on patient care today. Dr Esquivel was available by phone for the evaluation of this patient. The time was used to review the medical records including relevant urine studies and Prescription history (MAPs), review of the available imaging, evaluation and examination of the patient, coordination of care with the medical staff and if applicable referring physicians, as well as creation of the medical record - Pain Location Right Lower Back Pharmacological Interventions: Epidural PQRS Narrative: Smoking Status Never smoker Pain Intensity [Right Lower 6 Back] Scale Used Numeric (1 - 10) Home Medications: Ambulatory Orders Aspirin 325 mg PO BID #60 tab 12/18/17 Citalopram Hydrobromide [CeleXA] 40 mg PO QAM 01/16/18 Metoprolol Tartrate [Lopressor] 50 mg PO BID 01/16/18 Atorvastatin [Lipitor] 20 mg PO QAM 11/12/22 Clopidogrel [Plavix] 75 mg PO QAM 11/12/22 traZODone HCL [Desyrel] 50 mg PO HS PRN 11/12/22 HYDROcodone/APAP 5-325MG [[place] 5-325] 1 tab PO Q4HR PRN 3 Days #18 tab 11/14/22 Controlled Substance Measures - Controlled Substance Measures Is patient prescribed a controlled substance at discharge?: No
== END ==
LOC: PNWHC3 11:53
PROVIDERS: ATTEND Specialist
DX: M51.37 Other intervertebral disc degeneration, lumbosacral region (principal); Z88.2 Allergy status to sulfonamides
CPT/HCPCS: 99211

== ENCOUNTER → 2023-06-27 | Outpatient (CLI) | payer MEDICARE ==
--- NOTE | 2023-07-04 11:56 | MR ---
EXAMINATION TYPE: MR hip LT wo con DATE OF EXAM: 07/01/2023 COMPARISON: Outside left hip x-ray June 13, 2023 HISTORY: Lt hip pain Standard multiplanar, multisequence MRI departmental protocol Multiplanar, multisequence images of the pelvis focusing on left hip were acquired without contrast. FINDINGS: Moderate to severe axial joint space loss in both hips without significant spurring. Femora l head shapes are maintained bilaterally. There are small symmetric hip joint effusions presumed phys iologic. No serpiginous diminished T1 signal to suggest avascular necrosis. No suspicious increased T 2 signal or osseous edema in the left hip. Increased T2 signal at level of the greater trochanters bi laterally is more prominent in the right hip. Small fat-containing bilateral inguinal hernias. Muscle bulk symmetric and felt to have mild to moderate bilateral atrophy. No groin adenopathy is seen. Poorly distended bladder. No free fluid in the pelvis. Sigmoid colonic diverticula. Uterus surgically absent or atrophic in appearance. IMPRESSION: [id number] degenerative changes in both hips. There is right greater than left in sertional tendinosis at level of the greater trochanters in both hips noted.
== END | disposition home or self-care (01) ==
LOC: RADMRIMAIN 07:32
PROVIDERS: ATTEND Orthopaedic Surgery
DX: M16.0 Bilateral primary osteoarthritis of hip (principal); M67.854 Other specified disorders of tendon, left hip

== ENCOUNTER 2023-07-12 10:12 | Day surgery (SDC) | payer MEDICARE ==
[2023-07-10 14:38] VITALS: BMI 31.3
[2023-07-12] MEDS: LACTATED RINGERS 1,000 ML IV SCH (10:46)
[2023-07-12 10:51] VITALS: RESP 16; TEMP 96.8
[2023-07-12] MEDS ORDERED: fentaNYL (PF) 50 MCG/ML 2 ML AMP ONE (11:44)
[2023-07-12] MEDS ORDERED: MIDAZOLAM 2 MG/2 ML VIAL ONE (11:44)
[2023-07-12] MEDS ORDERED: ROPIVACAINE 5MG/ML 20ML VIAL ONE (11:46)
--- NOTE | 2023-07-12 11:58 | P.PCN ---
Date of Procedure: 07/12/23 Procedure(s) Performed: PREOPERATIVE DIAGNOSIS : 1- Lumbar spondylosis with Facet Arthropathy without myelopathy . 2- Lumber degenerative disc disease POSTOPERATIVE DIAGNOSIS: 1- Lumbar spondylosis with Facet Arthropathy without myelopathy . 2- Lumber degenerative disc disease PROCEDURE: Diagnostic bilateral L3,L4,L5 medial branch block under fluoroscopy guidance(fluoroscopy images available in the radiology Department ) ( To target the facet joint between Bilateral L4-5 , and L5- S1 )# 2nd ANESTHESIA:, Monitored anesthesia care as per anesthesia department.. EBL: Minimal COMPLICATION: None PROCEDURE INDICATION: Chronic low back pain secondary to Facet arthropathy unresponsive to conservative treatment. PROCEDURE DESCRIPTION: the patient was seen and identified in the preop holding area , risks and benefits and possible complications of the procedure and alternative were discussed with the patient, and the patient agreed to proceed with the procedure and signed the consent and vital signs monitored during the procedure and fluoroscopy was used to maximize the benefit and accuracy of the needle placement, and sedation was given to decrease patient anxiety, patient was taken to the procedure room and placed in prone position vital signs monitored in the back prepped with chlorhexidine X3 then under strict sterile technique using a right oblique fluoroscopy ,the junction of the transverse process and the superior articulating process of the right L3 , L4 , and L5 vertebra which corresponding to the fluoroscopy image of the eye of the Bony dog on the block side for the medial branches and subsequently , after local infiltration of skin and subcu tissuies with Ropivacaine 0.5 % , one mL at each level ,then 22-gauge Quincke-type needles , 3 needle was used , each one of them placed at the junction of the base of the transverse process and the superior articular process at the appropriate level, and the needle was advanced until the periosteum contacted, needle placement confirmed with AP oblique and lateral view and after appropriate needle placement confirmed, and after negative aspiration for heme and CSF and there was no paresthesia 1-1/2 mL of Ropivacaine 0.5% , then half mL injected at each level after negative aspiration the needle subsequently removed and the same procedure repeated for the left side at left side at L3 , L4 and L5 levels. At the end of the procedure and the needles removed and a bandage applied after the skin was cleaned the cleaning solution patient taken to recovery room in stable condition and monitors in the recovery room for 20-30 minutes and discharged home in stable condition after discharge criteria met and patient will follow up with the pain clinic in 2-4 weeks
[2023-07-12] MEDS: IV FLUID CONTINUATION 1,000 ML IV ONE (12:04)
--- NOTE | 2023-07-12 12:31 | FL ---
EXAMINATION TYPE: FL guided pain mgmt statistic DATE OF EXAM: 07/12/2023 HISTORY: Fluoroscopy time Total dose area product (DAP) in uGy*m?, mGy*cm? (or similar): 0.3027 IMPRESSION: 1. Fluoroscopy time.
[2023-07-12 12:57] VITALS: BP 125/72; PULSE 57
== END 2023-07-12 12:29 | disposition home or self-care (01) ==
LOC: ORPAIN 10:12
PROVIDERS: ATTEND Specialist
DX: M51.36 Other intervertebral disc degeneration, lumbar region (principal); M47.816 Spondylosis without myelopathy or radiculopathy, lumbar region; G89.29 Other chronic pain; I10 Essential (primary) hypertension; E78.5 Hyperlipidemia, unspecified; J44.9 Chronic obstructive pulmonary disease, unspecified; F41.9 Anxiety disorder, unspecified; F17.200 Nicotine dependence, unspecified, uncomplicated; Z88.2 Allergy status to sulfonamides; Z79.51 Long term (current) use of inhaled steroids; Z98.890 Other specified postprocedural states; Z79.899 Other long term (current) drug therapy
CPT/HCPCS: 64494 ×2; 64493; 99152; J2250; J3010; J2795

== ENCOUNTER → 2023-08-01 | Outpatient (CLI) | payer MEDICARE ==
--- NOTE | 2023-08-01 13:19 | P.PAINPG ---
Subjective Progress Note Date: 08/01/23 Principal diagnosis: lumbar back pain Ms. Vázquez is a 83 -year-old pleasant female came to the [facility] pain clinic for postprocedure evaluation. Patient has ongoing pain for many years. Patient describes pain is aching, throbbing, constant type of pain. pain is not radiating to her lower extremities. She had a history of T12 fracture secondary to fall, since then she is experiencing lumbar back pain. She had L4-L5, L5-S1 medial branch block on 06/07/2023 with no relief. She had bilateral lumbar L4-L5, L5-S1 medial branch block on 07/12/2023 with more than 80% pain relief for 5 days. Patient rated pain levels are 2 out of 10 in sever ity. With the help of medications pain levels are0-4out of 10 in severity. Activities making pain worse. Medications, resting, intervention procedure helping in relieving patient's pain. Patient pain some days better than others. Overall activities decreased secondary to pain. Because of the pain sometimes patient is feeling lack of sleep, interest, and energy. Denied any side effects with the medications. Denied any bowel or bladder problems at this time. Patient denies any suicidal or homicidal ideations intent or plan. Patient denies any auditory or visual hallucinations. Patient denied any red flag symptoms related to pain. Objective - Exam General: Well-developed, well-nourished, no acute distress HEENT: Normocephalic, and atraumatic Neck: Supple, no neck swelling Psychiatric: Appropriate mood, and affect [employer] SERVICE LEAD: No focal neurological deficits Musculoskeletal: Upper extremity: Normal strength, and range of motion. Sensation grossly intact Lower extremity: Normal strength, and normal range of motion Lumbar spine: Paravertebral tenderness: positive, multiple lumbar trigger p oint positive Lumbar facet load test : positive Sacroiliac joint tenderness: Positive - Constitutional Constitutional Comment(s): total point review of symptoms negative except as mentioned in the history of present illness Assessment and Plan Assessment: lumbar myofascial pain syndrome Lumbar spondylosis without myelopathy Chronic pain syndrome, history of fall Plan: #1 Diagnoses, prognosis, and multiple treatment options including but not limited to physical therapy, interventional therapy, adjunct medication therapy, narcotic medication, and surgical options were discussed with the patient. And all questions were answered to the patient's satisfaction. #2 treatment plan agreement : Patient was thoroughly discussed regarding the treatment options, alternatives, and importance of exercises as tolerated. Patient clearly understood. #3 Patient was counseled on importance of regular exercise. Including matt chi, aerobic exercises as tolerated. Which helps for chronic pain, and overall well-being. #4 investigations: MAPS- reviewed , urine drug test- none at this time #5 diagnostic tests: none #6 consultation :continue home exercise program # 7 interventional procedures: the bilateral lumbar L4-L5, L5-S1 medial branch block #3. As bilateral lumbar L4-L5, L5-S1 medial branch block #1 was not helpful, and bilateral lumbar L4-L5 L5-S1 medial branch block #2 helped for more than 80% pain relief for 5 days, still helping. Plan to do 1 more diagnostic block before proceeding for radiofrequency ablation . Procedure, complications, alternatives discussed with the patient. #8 medications none from the pain clinic #9 morphine milligrams equivalents dose ( MME) per day:0 # 10 TENS unit's, and percussion massage device #11 disposition: scheduled to follow up with pain clinic in 8 weeks duration. Time with Patient: Less than 30 PQRS Measure Charge Sheet Measure #130: Documentation of Current Meds in Medical Chart: Patient's medications documented in chart Measure #226: Tobacco Use: Screen & Cessation Intervention: Pt not a tobacco user Measure #111: Pneumonia Vaccination: Pneumococcal vaccine administered or previously received Measure #47: Advance Care Plan: Advance care planning discussed & documented, plan or surrogate given Measure #412: Opioid Treatment Agreement: No documentation of signed opioid treatment agreement Measure #408: Opioid Therapy Follow-up Evaluation: Patient had NO f/u eval minimum every 3 months during opioid therapy Measure #317: Preventitive Care & Scrn High Bld Press & F/U: Pre-hypertensive or hypertensive BP documented, pt will f/u with PCP Measure #128: Body Mass Index (BMI) Screening & Follow-up: BMI documented ABOVE normal parameters - f/u documented Measure #131: Pain Assessment & Follow-up: Pain positive & plan documented Measure #431: Unhealthy Alcohol Use Preventative Care & Scrn: Patient not identified as an unhealthy alcohol user PQRS Narrative: Smoking Status Never smoker Home Medications: Ambulatory Orders Aspirin 325 mg PO BID #60 tab 12/18/17 Citalopram Hydrobromide [CeleXA] 40 mg PO QAM 01/16/18 Metoprolol Tartrate [Lopressor] 50 mg PO BID 01/16/18 Atorvastatin [Lipitor] 20 mg PO QAM 11/12/22 Clopidogrel [Plavix] 75 mg PO QAM 11/12/22 traZODone HCL [Desyrel] 50 mg PO HS PRN 11/12/22 Controlled Substance Measures - Controlled Substance Measures Is patient prescribed a controlled substance at discharge?: No
[2023-08-01 13:50] VITALS: RESP 16
[2023-08-01 13:51] VITALS: BP 110/64; PULSE 83; TEMP 98
== END ==
LOC: PNWHC3 12:16
DX: M47.816 Spondylosis without myelopathy or radiculopathy, lumbar region (principal); G89.4 Chronic pain syndrome; M79.18 Myalgia, other site; Z91.81 History of falling; Z71.82 Exercise counseling; Z88.2 Allergy status to sulfonamides
CPT/HCPCS: 99211

== ENCOUNTER → 2023-08-02 | Outpatient (CLI) | payer MEDICARE ==
--- NOTE | 2023-08-02 09:42 | CT ---
EXAMINATION TYPE: CT brain wo con CT DLP: 1098.90 mGycm, Automated exposure control for dose reduction was used. DATE OF EXAM: 08/02/2023 7:54 AM COMPARISON: 11/04/2022.. CLINICAL INDICATION:Female, 83 years old with history of I62.9 BRAIN BLEED, Hx of brain bleed, follow up TECHNIQUE: Brain: Axial CT images of the brain were obtained with coronal and sagittal reformats created and rev iewed. Contrast used: None. Oral contrast used: None. FINDINGS: Brain: Extra-axial spaces: No abnormal extra-axial fluid collections. Ventricular system: Dilatation in proportion to cerebral atrophy. Cerebral parenchyma: No acute intraparenchymal hemorrhage or mass effect. The angel-white junction is well differentiated. Scattered hypoattenuating areas are seen within the white matter. Cerebellum: Unremarkable. Mass effect: No evidence of midline shift. Intracranial vasculature: unremarkable Soft tissues: Normal. Calvarium/osseous structures: No depressed skull fracture. Paranasal sinuses and mastoid air cells: Mild scattered paranasal sinus disease. Visualized orbits: Bilateral aphakia IMPRESSION: 1. No acute intracranial process. 2. Nonspecific white matter changes, likely secondary to chronic small vessel ischemic disease.
== END | disposition home or self-care (01) ==
LOC: RADCTMAIN 06:27
PROVIDERS: ATTEND Family Medicine
DX: I62.9 Nontraumatic intracranial hemorrhage, unspecified (principal); R90.82 White matter disease, unspecified
CPT/HCPCS: 70450

== ENCOUNTER 2023-08-29 07:11 | Day surgery (SDC) | payer MEDICARE ==
[2023-08-29] MEDS: LACTATED RINGERS 1,000 ML IV SCH (08:02)
[2023-08-29 08:07] VITALS: TEMP 97.1
[2023-08-29] MEDS ORDERED: ROPIVACAINE 5MG/ML 20ML VIAL ONE (08:18)
[2023-08-29] MEDS ORDERED: MIDAZOLAM 2 MG/2 ML VIAL ONE (08:18)
--- NOTE | 2023-08-29 08:27 | P.PCN ---
Date of Procedure: 08/29/23 Description of Procedure: Procedure: BILATERAL L4-5, L5-S1 #3 (First MBB did not help, second helped > 80%) so decision to do third before RFA. Diagnosis: Lumbar spondylosis without myelopathy ANESTHESIA: Patient re-evaluated immediately prior to sedation Medication Administered by: Nurse Sedation Type: Moderate sedation Sedation Supervision start time: 817 Sedation Supervision end time: 825 EBL: Minimal Imaging: Fluoroscopy was used, images where saved to the medical record The patient was seen and examined in the [facility]. Procedure risks and benefits were fully reviewed with the patient. The patient understands this is diagnostic if local only is used, as will be the case today. The goal of the procedure is to inject medication onto the medial branch or small nerves that innervate the facet joints. In this way, we can hopefully identify which of these joints, if any, may be contributing to their pain. Informed consent for procedure was obtained. The patient was taken into the office fluoroscopy procedure room and placed prone on the table. A pillow was placed under the abdomen to reduce lumbar lordosis. Vital signs were closely monitored during the procedure. The skin over the area was prepped with Betadine X 3 and draped in usual sterile manner. Sterile technique was observed throughout procedure. Under biplanar fluoroscopic guidance, the target injection area of the L4, L5, Sacral Ala were targeted. A 25 gauge 3 1/2 inch spinal needle was then placed at the most medial and superior aspect of the transverse process near the "eye of the Bony dog". As piration for blood was negative. 1 cc of 0.5% Ropivacaine was injected into the targeted areas separately. [place] were withdrawn intact. No complications were noted during the procedure. The patient tolerated the procedure well. The patient was placed in supine position and transferred to the recovery area for observation and remained stable until discharged home. Home discharge instructions were given to the patient by the staff. The patient will schedule a follow up as directed.
[2023-08-29] MEDS: IV FLUID CONTINUATION 800 ML IV ONE (08:32)
--- NOTE | 2023-08-29 08:51 | FL ---
EXAMINATION TYPE: FL guided pain mgmt statistic DATE OF EXAM: 08/29/2023 HISTORY: Fluoroscopy time Total dose area product (DAP) in uGy*m?, mGy*cm? (or similar): 0.92719 IMPRESSION: 1. Fluoroscopy time.
[2023-08-29 08:55] VITALS: RESP 16
[2023-08-29 09:43] VITALS: BP 137/77; PULSE 60
== END 2023-08-29 09:00 | disposition home or self-care (01) ==
LOC: ORPAIN 07:11
PROVIDERS: ATTEND Hospitalist
DX: M47.816 Spondylosis without myelopathy or radiculopathy, lumbar region (principal); I10 Essential (primary) hypertension; Z79.02 Long term (current) use of antithrombotics/antiplatelets; Z79.82 Long term (current) use of aspirin; Z88.2 Allergy status to sulfonamides
CPT/HCPCS: 64493; 64494 ×2; 99152; J2250; J2795

== ENCOUNTER → 2023-09-04 | Outpatient (CLI) | payer MEDICARE ==
--- NOTE | 2023-09-04 09:24 | FL ---
EXAMINATION TYPE: FL UGI air w esophagus DATE OF EXAM: 09/04/2023 8:37 AM CLINICAL INDICATION:Female, 83 years old with history of K21.9 GERD; COMPARISON: CT 12/02/2022 TECHNIQUE: The procedure was explained and patient history elicited. All patient questions were ans wered prior to start of procedure. A explosive ordnance disposal manager radiograph of the abdomen was also reviewed. Multiple flu oroscopic spot images of the esophagus, stomach and duodenum were obtained following ingestion of liq uid barium and EZ-gas crystals. Fluoroscopic time: 1 minute 37 second min Fluoroscopic images:0 Radiographs taken: 6 DAP: Not reported [id number] FINDINGS: Upper GI examination: The explosive ordnance disposal manager abdominal radiograph demonstrates a normal bowel gas pattern without dilated loops of small or large bowel. There is no evidence for organomegaly or pneumoperitoneum. No abnormal calcificat ions. The visualized osseous structures are intact. The esophagus demonstrates multiple outpouchings and dysmotility. There is presbyesophagus. No hiatal hernia was visualized. There was evidence of gastroesophageal reflux was seen. The stomach and duode num demonstrate a normal course and contour. There is no evidence of focal gastric or duodenal ulcer ation, stricture, or abnormal outpouching. IMPRESSION: 1. Presbyesophagus with esophageal dysmotility. No hernia visualized. 2. Gastroesophageal reflux.
== END | disposition home or self-care (01) ==
LOC: RADFLMAIN 07:16
PROVIDERS: ATTEND Surgery
DX: K21.9 Gastro-esophageal reflux disease without esophagitis (principal); K22.89 Other specified disease of esophagus; K22.4 Dyskinesia of esophagus
CPT/HCPCS: 74246

== ENCOUNTER 2023-09-09 09:55 | Day surgery (SDC) | payer MEDICARE ==
[~2023-09-09 09:55] MED LIST changes: +LIDOCAINE 1% (10MG/ML) FOR IV START INTRADERMA PRN
[2023-09-09] MEDS: IV FLUID CONTINUATION 1,000 ML IV ONE (10:11)
[2023-09-09 10:19] VITALS: RESP 16; TEMP 97.6
[2023-09-09] MEDS ORDERED: LIDOCAINE 1% INJ 10MG/ML (20 ML MDV) ONE (11:20)
[2023-09-09] MEDS ORDERED: PROPOFOL 10 MG/ML 20 ML VIAL IV ONE (11:20)
--- NOTE | 2023-09-09 11:31 | P.OP ---
Date of Procedure: 09/09/23 Preoperative Diagnosis: GERD Postoperative Diagnosis: gastritis Procedure(s) Performed: EGD Anesthesia: MAC Surgeon: Matthew Mixon Pathology: other (antrum) Condition: stable Disposition: PACU Description of Procedure: the patient's placed on the endoscopy table in the lateral position. She received IV sedation. The gastro-/oropharynx passed in the esophagus and stomach. Scope was placed through the pylorus. First and second portion duodenum appeared normal. Scope summer back the antrum was mildly inflamed. A biopsies performed. Scope was then retroflexed and the remainder the stomach appeared normal. There was no significant hiatal hernia. The GE junction was at 40 cm the distal esophagus appeared normal. The proximal esophagus appeared normal. Scope withdrawn for patient.
[2023-09-09 11:51] VITALS: BP 136/78; PULSE 51
== END 2023-09-09 12:28 ==
LOC: ORWHC2ENDO 09:55
PROVIDERS: ATTEND Surgery
DX: K29.50 Unspecified chronic gastritis without bleeding (principal); K31.A0 Gastric intestinal metaplasia, unspecified; K21.9 Gastro-esophageal reflux disease without esophagitis; I10 Essential (primary) hypertension; E78.5 Hyperlipidemia, unspecified; F41.9 Anxiety disorder, unspecified; J44.9 Chronic obstructive pulmonary disease, unspecified; Z88.2 Allergy status to sulfonamides; Z79.51 Long term (current) use of inhaled steroids; Z79.899 Other long term (current) drug therapy
CPT/HCPCS: 88305; 88342; 43239; J2001; J2704

== ENCOUNTER → 2023-09-12 | Outpatient (CLI) | payer MEDICARE ==
[2023-09-12 13:07] VITALS: BP 136/76; PULSE 61; RESP 16
--- NOTE | 2023-09-12 13:30 | P.PAINPG ---
PQRS Measure Charge Sheet Comment: HISTORY OF PRESENT ILLNESS: A 83 yr old female presents today w severe and chronic LBP since fall in Dec 2022 secondary to DDD, spondylosis and facet arthropathy without myelopathy for evaluation s/p BL MBB L3-L5. #3. Pt states she experienced 90 % pain relief x 3 days s/p procedure. Pt states pain level is provoked at 6 /10 in intensity, constant, localized in the lower lumbar spine, predominantly axial, achy in character without shooting pain. Pain is provoked by standing for periods > 20 min. Pain is alleviated by medications, topical, chiropractic treatments monthly x 1 yr w last visit in Aug 2022, physician guided home stretching regimen every morning since Apr 2023, use of a LSO, repositioning and rest. Oswestry axial pain score at 26. Interventional procedures include BL MBB L3-L5 x1 Medications include Nova 7.5/325mg, Ibu, Icy- Hot REVIEW OF ORGAN SYSTEMS: CONSTITUTIONAL: No fevers or chills. No recent weight loss. NEUROLOGICAL: + numbness and tingling along the distal extremities. No seizure disorders or headaches. MUSCULOSKELETAL: + pain PSYCHIATRIC: Denies current depression or suicidal thoughts. Physical Examinations : Constitutional : Cooperative , not in acute distress . Neurologic : Cranial nerve II to XII intact. No focal neurological deficits. Psychiatric : alert & oriented x 3. Matching mood & appropriate affect. Judgment & insight intact. Musculoskeletal : Cervical Spine Motor strength in the deltoid and biceps: Normal right side. Normal Left side Motor strength biceps and the wrist extensors: Normal right side . Normal left side Motor strength in the triceps muscle: Normal right side. Normal left side Deep tendon reflexes: Normal at the biceps. Normal at Brachioradialis. Normal at triceps Vertebral body tenderness to deep palpation over Cervical facet loading test: positive bilaterally Spurling test: positive bilaterally Neck distraction test: positive bilaterally Diann sign: positive bilaterally Lumbar spine Motor strength lower extremities ,thigh and legs 5/5 Right side , 5/5 Left side Deep tendon reflexes : Normal Knee Jerk. Normal Ankle Jerk Vertebral body tenderness over Gloria Test positive Lumbar facet Loading Test: positive Right / positive Left L4-L5, L5-S1 Range of motion of the lumbar spine Flexion 30 degrees, extension 10 degrees Straight Leg Raise test: Left/ Right positive at degrees Tyler test: positive right / positive left. Severe tenderness over the Sacroiliac joint on the Right / Left sides Gaenslen test: positive bilaterally Seated flexion test: positive bilaterally. Sacral spine : Severe tenderness over the Sacroiliac joint: right side / left side Range of motion: Flexion of the lumbar spine <60 degrees Range of motion: Extension of the lumbar spine <20 degrees Gaenslen's Test positive Tyler test: positive right side / left side Thigh Thrust Test Sacral Thrust Test Imaging: MRI non contrast of the lumbar spine from Jan 18 2023 reviewed Assessment/ Plan : Lumbar DDD Recommendation of BL RFA L3-L5. Exhibited optimal pain relief w two o f the prior BL MBB procedures. Risks, benefits of procedure discussed and patient verbalized understanding. Admits to anti- coagulant use or medical history of diabetes. Protocol for discontinuation/ continuation of medications mauricio procedure discussed. Minimal anesthesia provided, if clinically indicated, consisting of Versed and Fentanyl. All questions answered. I have spent greater than 30 minutes on patient care today. Dr Esquivel was available by phone for the evaluation of this patient. The time was used to review the medical records including relevant urine studies and Prescription history (MAPs), review of the available imaging, evaluation and examination of the patient, coordination of care with the medical staff and if applicable referring physicians, as well as creation of the medical record PQRS Narrative: Smoking Status Never smoker Home Medications: Ambulatory Orders Citalopram Hydrobromide [CeleXA] 40 mg PO QAM 01/16/18 Metoprolol Tartrate [Lopressor] 50 mg PO BID 01/16/18 Atorvastatin [Lipitor] 20 mg PO QAM 11/12/22 Clopidogrel [Plavix] 75 mg PO QAM 11/12/22 traZODone HCL [Desyrel] 50 mg PO HS PRN 11/12/22 Aspirin 81 mg PO DAILY 08/14/23 Albuterol Inhaler [Ventolin Hfa Inhaler] 1 - 2 puff INHALATION Q6H PRN 09/06/23 Controlled Substance Measures - Controlled Substance Measures Is patient prescribed a controlled substance at discharge?: No
== END ==
LOC: PNWHC3 12:08
PROVIDERS: ATTEND Specialist
DX: M51.37 Other intervertebral disc degeneration, lumbosacral region (principal); Z88.2 Allergy status to sulfonamides
CPT/HCPCS: 99211

== ENCOUNTER 2023-10-11 07:04 | Day surgery (SDC) | payer MEDICARE ==
[2023-10-11 07:48] VITALS: RESP 16; TEMP 97.3
[2023-10-11] MEDS: LACTATED RINGERS 1,000 ML IV SCH (07:48)
[2023-10-11] MEDS: IV FLUID CONTINUATION 1,000 ML IV ONE ×2 (07:49→08:52)
[2023-10-11] MEDS: LIDOCAINE 1% (10MG/ML) FOR IV START INTRADERMA ONE (07:49)
[2023-10-11] MEDS ORDERED: fentaNYL (PF) 50 MCG/ML 2 ML AMP ONE (08:05)
[2023-10-11] MEDS ORDERED: MIDAZOLAM 2 MG/2 ML VIAL ONE (08:05)
[2023-10-11] MEDS ORDERED: ROPIVACAINE 5MG/ML 20ML VIAL ONE (08:05)
--- NOTE | 2023-10-11 09:02 | P.PCN ---
Description of Procedure: Preprocedure diagnosis. 1. Lumbar spondylosis with facet joint arthropathy without myelopathy. 2. Lumbar degenerative disc disease. Procedure diagnosis. 1. Lumbar spondylosis with facet joint arthropathy without myelopathy. Space 2. Lumbar degenerative disc disease. Procedure.Bilateral radiofrequency thermocoagulation L3, L4 and L5 medial branch, with fluoroscopic guidance (fluoroscopy images are available in the radiology department) (to Denervate the facet joint at bilateral L4- 5 and L5-S1 levels) Anesthesia. Moderate sedation with intravenous Versed 2 mg and fentanyl 50 g and local infiltration with Lidocaine. Continuous pulse OX,BP,EKG and verbal communication was maintained with patient. EBL minimal. Procedure indication. The patient with low back pain secondary to lumbar facet arthropathy who he had more than 50% relief of her pain with previous diagnostic lumbar medial branch block with local anesthetics.The patient was seen and identified in the preoperative area. Risks: Benefits, complications, including but not limited to risk of infection, bleeding, ALLERGIC reaction to the medications and no complete pain relief and alternatives were discussed with the patient, the patient admitted to proceed with the procedure and signed the consent. Procedure description/technique. Patient was taken to the OR and timeout was completed. The patient was placed in prone position on the procedure table. The lumbar area was prepped and draped in the usual sterile fashion. After injecting 5 ml of 1% Lidocaine subcutaneously,using AP and then oblique, lateral view of fluoroscopy, 18-gauge 100 mm radiofrequency cannula with a 10 mm active tip was advanced and guided by fluoroscopy at the junction of supirior articular process with RIGHT ala of the sacrum, transverse process of L4&L5. Each site then underwent positive sensory testing with 50 Hz and 0-1 V and negative motor testing at 2.5 Hz and 0-3 V with local stimulation but no radicular symptoms down the leg. Thereafter each sites underwent radiofrequency thermocoagulation at 80C for 90 seconds after injecting 1 mL of preservative- free 0.5% ropivacaine. Repeat radiofrequency ablation was done at each points after rotating the needle 180 with same setting. This same procedure was repeated twice on the LEFT side at the junction of superior articular process with ala of sacrum,transverse process of L4, L5 with the same settings after positive sensory,negative motor stimulation and infiltration of 1.0 ml 5% Ropivacaine at each site . RF needles were taken out. At the end of the procedure the skin was cleansed and Band-Aids were applied. Disposition patient tolerated the procedure well. No complication. She was placed in supine position and transferred to the recovery area in stable condition for observation and was discharged home from recovery room after meeting discharge criteria. Discharge instructions given to the patient by the staff. The patient were examined prior to discharge the patient will schedule a follow-up in the clinic in 2-4 weeks.
[2023-10-11 09:06] VITALS: BP 119/60; PULSE 51
--- NOTE | 2023-10-11 09:37 | FL ---
EXAMINATION TYPE: FL guided pain mgmt statistic Intraoperative/procedural fluoroscopic services were provided. Total fluoroscopy time is 73.4 seconds with a total of 6 submitted images to PACS. Please s ee the operative/procedural note for further details. DAP: [id number] mGym2
== END 2023-10-11 09:37 | disposition home or self-care (01) ==
LOC: ORPAIN 07:04
PROVIDERS: ATTEND Pain Medicine Interventional Pain Medicine
DX: M47.816 Spondylosis without myelopathy or radiculopathy, lumbar region (principal); M51.36 Other intervertebral disc degeneration, lumbar region; Z79.02 Long term (current) use of antithrombotics/antiplatelets; Z79.82 Long term (current) use of aspirin; Z88.2 Allergy status to sulfonamides; Z79.899 Other long term (current) drug therapy
CPT/HCPCS: 64635; 64636 ×2; 99152; 99153 ×2; J2250; J3010; J2795

== ENCOUNTER → 2023-10-22 | Outpatient (CLI) | payer MEDICARE ==
[2023-10-22 18:30] LABS: Basophils # (A) 0.06 X 10*3/uL (0.00-0.10); Basophils % (A) 0.8 %; Eosinophils # (A) 0.97 X 10*3/uL (0.04-0.35); Eosinophils % (A) 12.9 %; HCT 42.8 % (37.2-46.3); HGB 14.3 g/dL (12.0-15.0); Lymphocytes # (A) 1.97 X 10*3/uL (0.90-5.00); Lymphocytes % (A) 26.2 %; MCHC 33.4 g/dL (32.0-37.0); MCV 89.9 FL (80.0-97.0); Mean Platelet Volume 9.9 FL (9.5-12.2); Monocytes # (A) 0.86 X 10*3/uL (0.20-1.00); Monocytes % (A) 11.5 %; NRBC Per 100 WBC 0 X 10*3/uL (0.00-0.01); Neutrophils # (A) 3.61 X 10*3/uL (1.80-7.70); Neutrophils % (A) 48.1 %; Platelet Count 308 X 10*3/uL (140-440); RBC 4.76 X 10*6/uL (4.10-5.20); RDW 13.2 % (11.5-14.5); WBC 7.51 X 10*3/uL (4.50-10.00)
== END | disposition home or self-care (01) ==
LOC: LABPAT 13:34
PROVIDERS: ATTEND Surgery
DX: Z01.818 Encounter for other preprocedural examination (principal); K43.2 Incisional hernia without obstruction or gangrene; R94.31 Abnormal electrocardiogram [ECG] [EKG]
CPT/HCPCS: 85025; 86850; 86900; 86901; 93005

== ENCOUNTER 2023-10-29 08:45 | Day surgery (SDC) | payer MEDICARE ==
[~2023-10-29 08:45] MED LIST changes: +ACETAMINOPHEN TAB 500 MG TAB PO PRN; -LACTATED RINGERS 1,000 ML IV SCH; -LIDOCAINE 1% (10MG/ML) FOR IV START INTRADERMA PRN
[2023-10-29] MEDS: IV FLUID CONTINUATION 1,000 ML IV ONE ×3 (10:16→13:46)
[2023-10-29] MEDS: LACTATED RINGERS 1,000 ML IV SCH (10:28)
[2023-10-29] MEDS: DEXAMETHASONE SOD PHOSPHATE 4 MG/ML 1 ML VIAL IV ONE (10:29)
[2023-10-29] MEDS: MIDAZOLAM 2 MG/2 ML VIAL IV PRN (10:39)
[2023-10-29] MEDS: HEPARIN SODIUM,PORCINE 5,000 UNIT/ML 1 ML VIAL SQ PRN (10:56)
[2023-10-29] MEDS: LIDOCAINE 1%-EPI 1:100,000 20 ML VIAL SQ ONE ×2 (11:15)
[2023-10-29] MEDS ORDERED: fentaNYL (PF) 50 MCG/ML 2 ML AMP ONE (11:20)
[2023-10-29] MEDS ORDERED: GLYCOPYRROLATE 0.2 MG/ML 2 ML VIAL ONE (11:20)
[2023-10-29] MEDS ORDERED: DEXAMETHASONE SOD PHOSPHATE 4 MG/ML 1 ML VIAL ONE (11:20)
[2023-10-29] MEDS ORDERED: SUCCINYLCHOLINE CHLORIDE 200 MG/10 ML VIAL IV ONE (11:20)
[2023-10-29] MEDS ORDERED: SODIUM CHLORIDE 0.9% (PF) 10 ML VIAL ONE (11:20)
[2023-10-29] MEDS ORDERED: LIDOCAINE 1% INJ 10MG/ML (20 ML MDV) ONE (11:20)
[2023-10-29] MEDS ORDERED: ROCURONIUM 10 MG/ML (5 ML VIAL) IV ONE (11:20)
[2023-10-29] MEDS ORDERED: KETOROLAC 15 MG/ML 1 ML VIAL ONE (11:20)
[2023-10-29] MEDS ORDERED: NEOSTIGMINE 1 MG/ML 10 ML VIAL ONE (11:20)
[2023-10-29] MEDS ORDERED: ROPIVACAINE 5 MG/ML 30 ML VIAL ONE (11:20)
[2023-10-29] MEDS ORDERED: KETAMINE HCL IN 0.9 % NACL 50 MG/5 ML SYRINGE ONE (11:20)
[2023-10-29] MEDS ORDERED: PROPOFOL 10 MG/ML 20 ML VIAL IV ONE (11:20)
[2023-10-29] MEDS: HYDROmorphone 0.5 MG/0.5 ML SYRINGE IVP PRN (12:32)
--- NOTE | 2023-10-29 12:33 | P.OP ---
Date of Procedure: 10/29/23 Preoperative Diagnosis: Incisional hernia Postoperative Diagnosis: Incarcerated incisional hernia Procedure(s) Performed: Laparoscopic robotic assisted repair of incarcerated incisional hernia Partial omentectomy Transversus abdominis plane block Anesthesia: VINNIE Surgeon: Matthew Mixon Estimated Blood Loss (ml): 5 Pathology: other (Karsh omentum) Condition: stable Disposition: PACU Description of Procedure: The patient was placed on the operating table in the supine position. He received general anesthesia. His abdomen was prepped and draped usual fashion. Using a 5 mm optical trocar under direct visualization the peritoneal cavity was entered in the left upper quadrant. The abdomen was then insufflated. The laparoscope was placed back into the perineal cavity. Next a 8 mm robotic trocar was placed in the left lower quadrant and a 12 mm robotic trocar was cristiano flora in the left lateral position. The original 5 mm trocar was exchanged for a 8 mm robotic trocar. The patient's placed in the left side up position. A four-quadrant transversus abdominis plane block was performed with 1% local Xylocaine. And the patient was docked to the robot. The incisional hernia was visualized. Using hook cautery the peritoneum over the incisional hernia was excised. Karsh omentum was dissected free sent to pathology. The fascial opening was repaired using 0V LOC suture. Next a piece of 11 cm round ventral light ST mesh was placed into the. Cavity and secured w ith 2 OV lock suture. The patient was undocked the robot. The needles were retrieved. The fascia of the 12 mm trocar site was closed with 0 Ethibond suture. Skin was closed interrupted 3-0 Monocryl suture. Dermabond dressings was applied. Patient tolerated procedure well and was sent to recovery room stable condition.
[2023-10-29] MEDS: ONDANSETRON 4 MG/2 ML VIAL IVP ONE (14:21)
[2023-10-29] MEDS: droPERidol 5 MG/2 ML VIAL IVP ONE (14:42)
--- NOTE | 2023-10-29 14:48 | P.ANPRN ---
Procedure Note - Anesthesia - Nerve Block Performed Bilateral Erector Spinae Single Time Out Performed: Yes (1038) Date of Procedure: 10/29/23 Location of Patient: PreOp Indication: Acute Post-Operative Pain, Dx/Pain Location (abdomen), Requested by Surgeon Specifically requested for management of pain by DrFrankie: Matthew Mixon Sedation Type: Sedate with meaningful contact maintained Preparation: Sterile Prep Position: Prone Catheter: None Needle Types: Pajunk Needle Gauge: 21 Ultrasound used to visualize needle placement: Yes Ultrasound used to observe medication spread: Yes Injectate: 0.5% Ropivacaine (see comment for volume) (15cc + 2mg of decadron + 10 cc of saline on each side) Blood Aspirated: No Pain Paresthesia on Injection Noted: No Resistance on Injection: Normal Image Stored and Saved: Yes Events: Uneventful and Well Tolerated
[2023-10-29] MEDS ORDERED: HYDROmorphone 1 MG/ML 1 ML SYRINGE IVP PRN (14:57)
[2023-10-29] MEDS: SODIUM CHLORIDE 0.9% 1,000 ML IV SCH (17:06)
[2023-10-29] MEDS: ONDANSETRON 4 MG/2 ML VIAL IVP PRN (17:17)
[2023-10-29] MEDS: HYDROcodone/APAP 5-325MG 1 EACH TAB PO PRN (20:51)
[2023-10-30 07:30] VITALS: BP 152/73; PULSE 65; RESP 17; TEMP 98.3
[2023-10-30] MEDS: IPRATROPIUM-ALBUTEROL 3 ML NEB INHALATION STA (15:32)
--- NOTE | 2023-10-30 16:01 | P.DS ---
Providers Expected date of discharge: 10/30/23 Attending physician: Matthew Mixon Consults: 10/30/23 12:04 Consult Physician Routine Consulting Provider: Kevin Ríos Consult Reason/Comments: medical management Do you want consulting provider notified?: Yes Primary care physician: Kevin Ríos Hospital Course: Discharge diagnosis Incarcerated incisional hernia Hospital course This is an 83-year-old female with incarcerated incisional hernia. She is status post laparoscopic robotic assisted repair of incarcerated incisional hernia. Patient initially was discharged after surgery. However, discharge was held due to patient being nauseous and lethargic. Patient does report she is feeling better today. Her pain is controlled. Per nursing staff patient has ambulated in the hallway. And she has tolerated diet. She is having flatus. Her pain is controlled. She is afebrile. She denies any nausea or vomiting. She is stable for discharge. Please refer to chart for any further details. Physician Land Development Project Manager note has been reviewed by physician. Signing provider agrees with the documented findings, assessment, and plan of care. Patient Condition at Discharge: Stable Plan - Discharge Summary Discharge Rx Participant: No New Discharge Prescriptions: New Docusate [Colace] 100 mg PO BID #20 capsule Ibuprofen [Motrin] 600 mg PO Q6HR PRN #40 tab PRN Reason: Pain oxyCODONE HCL [OxyIR] 5 mg PO Q6H PRN 3 Days #10 tab PRN Reason: Pain Acetaminophen Tab [Tylenol] 650 mg PO Q6H #30 tab No Action Metoprolol Tartrate [Lopressor] 50 mg PO BID Citalopram Hydrobromide [CeleXA] 40 mg PO QAM traZODone HCL [Desyrel] 50 mg PO HS PRN PRN Reason: Insomnia Clopidogrel [Plavix] 75 mg PO QAM Atorvastatin [Lipitor] 20 mg PO QAM Albuterol Inhaler [Ventolin Hfa Inhaler] 1 - 2 puff INHALATION Q6H PRN PRN Reason: Shortness Of Breath Aspirin 81 mg PO DAILY Ibuprofen [Motrin] 800 mg PO DIRECTED PRN PRN Reason: Pain Discharge Medication List Citalopram Hydrobromide [CeleXA] 40 mg PO QAM 01/16/18 [History] Metoprolol Tartrate [Lopressor] 50 mg PO BID 01/16/18 [History] Atorvastatin [Lipitor] 20 mg PO QAM 11/12/22 [History] Clopidogrel [Plavix] 75 mg PO QAM 11/12/22 [History] traZODone HCL [Desyrel] 50 mg PO HS PRN 11/12/22 [History] Aspirin 81 mg PO DAILY 08/14/23 [History] Albuterol Inhaler [Ventolin Hfa Inhaler] 1 - 2 puff INHALATION Q6H PRN 09/06/23 [History] Ibuprofen [Motrin] 800 mg PO DIRECTED PRN 10/25/23 [History] Acetaminophen Tab [Tylenol] 650 mg PO Q6H #30 tab 10/29/23 [Rx] Docusate [Colace] 100 mg PO BID #20 capsule 10/29/23 [Rx] Ibuprofen [Motrin] 600 mg PO Q6HR PRN #40 tab 10/29/23 [Rx] oxyCODONE HCL [OxyIR] 5 mg PO Q6H PRN 3 Days #10 tab 10/29/23 [Rx] Follow up Appointment(s)/Referral(s): Matthew Mixon MD [STAFF PHYSICIAN] - 11/12/23 2:50 pm Patient Instructions/Handouts: *[facility] - (Anesthesia) Discharge Instructions Outpatient Surgery, *[facility] - Laparoscopy Discharge Instructions, Ventral Hernia Repair (DC)
== END 2023-10-30 15:11 ==
LOC: OR 08:45 → 5NMEDONC 12:30 → OR 10-30 15:11
PROVIDERS: ATTEND Surgery
DX: K43.0 Incisional hernia with obstruction, without gangrene (principal); G89.18 Other acute postprocedural pain; I10 Essential (primary) hypertension; E78.5 Hyperlipidemia, unspecified; J44.9 Chronic obstructive pulmonary disease, unspecified; M19.90 Unspecified osteoarthritis, unspecified site; F41.9 Anxiety disorder, unspecified; K21.9 Gastro-esophageal reflux disease without esophagitis; Z86.73 Personal history of transient ischemic attack (TIA), and cerebral infarction without residual deficits; Z79.82 Long term (current) use of aspirin; Z79.51 Long term (current) use of inhaled steroids; Z88.2 Allergy status to sulfonamides; Z87.891 Personal history of nicotine dependence; Z79.899 Other long term (current) drug therapy
CPT/HCPCS: 64999; 49592; C1781; J2250; J1644; J1100; J0690; J2405; J1170; J1790; 88305

== ENCOUNTER → 2023-11-25 | Outpatient (CLI) | payer MEDICARE ==
[2023-11-25 09:08] VITALS: BP 134/64; PULSE 56; RESP 16; TEMP 98.2
--- NOTE | 2023-11-25 14:24 | P.PAINPG ---
Objective - Vital Signs Vital signs: Vital Signs Temp 98.2 F 11/25/23 09:06 Pulse 56 L 11/25/23 09:06 Resp 16 11/25/23 09:06 BP 134/64 11/25/23 09:06 Pulse Ox 95 11/25/23 09:06 FiO2 Intake & Output 11/24/23 11/25/23 11/25/23 18:59 06:59 18:59 Weight 84.822 kg PQRS Measure Charge Sheet Mode of Arrival: Ambulatory Comment: HISTORY OF PRESENT ILLNESS: A 83 yr old female presents today w severe and chronic LBP since fall in Dec 2022 secondary to radiculopathy, spondylosis and facet arthropathy without myelopathy for evaluation s/p BL RFA L3-L5. #3. Pt states she experienced 95 % pain relief s/p procedure. Pt states pain level is provoked at 1 /10 in intensity, constant, localized in the lower lumbar spine, predominantly axial, achy in character without shooting pain. Pain is provoked by standing for periods > 20 min. Pain is alleviated by medications, topical, chiropractic treatments monthly x 1 yr w last visit in Aug 2022, physician guided home stretching regimen every morning since Apr 2023, use of a LSO, repositioning and rest. Interventional procedures include BL RFA L3-L5 x1 (Oct 2023) Medications include Hudson 7.5/325mg, Ibu, Icy- Hot REVIEW OF ORGAN SYSTEMS: CONSTITUTIONAL: No fevers or chills. No recent weight loss. NEUROLOGICAL: + numbness and tingling along the distal extremities. No seizure disorders or headaches. MUSCULOSKELETAL: + pain PSYCHIATRIC: Denies current depression or suicidal thoughts. Physical Examinations : Constitutional : Cooperative , not in acute distress . Neurologic : Cranial nerve II to XII intact. No focal neurological deficits. Psychiatric : alert & oriented x 3. Matching mood & appropriate affect. Judgment & insight intact. Musculoskeletal : Cervical Spine Motor strength in the deltoid and biceps: Normal right side. Normal Left side Motor strength biceps and the wrist extensors: Normal right side . Normal left side Motor strength in the triceps muscle: Normal right side. Normal left side Deep tendon reflexes: Normal at the biceps. Normal at Brachioradialis. Normal at triceps Vertebral body tenderness to deep palpation over Cervical facet loading test: positive bilaterally Spurling test: positive bilaterally Neck distraction test: positive bilaterally Diann sign: positive bilaterally Lumbar spine Motor strength lower extremities ,thigh and legs 5/5 Right side , 5/5 Left side Deep tendon reflexes : Normal Knee Jerk. Normal Ankle Jerk Vertebral body tenderness over Gloria Test positive Lumbar facet Loading Test: positive Right / positive Left L4-L5, L5-S1 Range of motion of the lumbar spine Flexion 30 degrees, extension 10 degrees Straight Leg Raise test: Left/ Right positive at degrees Tyler test: positive right / positive left. Severe tenderness over the Sacroiliac joint on the Right / Left sides Gaenslen test: positive bilaterally Seated flexion test: positive bilaterally. Sacral spine : Severe tenderness over the Sacroiliac joint: right side / left side Range of motion: Flexion of the lumbar spine <60 degrees Range of motion: Extension of the lumbar spine <20 degrees Gaenslen's Test positive Tyler test: positive right side / left side Thigh Thrust Test Sacral Thrust Test Imaging: MRI non contrast of the lumbar spine from Jan 18 2023 reviewed Assessment/ Plan : Lumbar DDD Will manage residual pain and may RTC on an as needed basis. All questions answered. I have spent greater than 30 minutes on patient care today. Dr Esquivel was available by phone for the evaluation of this patient. The time was used to review the medical records including relevant urine studies and Prescription history (MAPs), review of the available imaging, evaluation and examination of the patient, coordination of care with the medical staff and if applicable referring physicians, as well as creation of the medical record PQRS Narrative: Smoking Status Never smoker Blood Pressure 134/64 Pain Intensity [Bilateral 1 Lower Back] Scale Used Numeric (1 - 10) Hx Alcohol Use (MH) No Home Medications: Ambulatory Orders Citalopram Hydrobromide [CeleXA] 40 mg PO QAM 01/16/18 Metoprolol Tartrate [Lopressor] 50 mg PO BID 01/16/18 Atorvastatin [Lipitor] 20 mg PO QAM 11/12/22 Clopidogrel [Plavix] 75 mg PO QAM 11/12/22 traZODone HCL [Desyrel] 50 mg PO HS PRN 11/12/22 Aspirin 81 mg PO DAILY 08/14/23 Albuterol Inhaler [Ventolin Hfa Inhaler] 1 - 2 puff INHALATION Q6H PRN 09/06/23 Ibuprofen [Motrin] 800 mg PO DIRECTED PRN 10/25/23 Acetaminophen Tab [Tylenol] 650 mg PO Q6H #30 tab 10/29/23 Docusate [Colace] 100 mg PO BID #20 capsule 10/29/23 Ibuprofen [Motrin] 600 mg PO Q6HR PRN #40 tab 10/29/23 oxyCODONE HCL [OxyIR] 5 mg PO Q6H PRN 3 Days #10 tab 10/29/23 Controlled Substance Measures - Controlled Substance Measures Is patient prescribed a controlled substance at discharge?: No
== END ==
LOC: PNWHC3 08:23
PROVIDERS: ATTEND Specialist
DX: M47.816 Spondylosis without myelopathy or radiculopathy, lumbar region
CPT/HCPCS: 99211

== ENCOUNTER 2024-04-27 04:03 | Inpatient (IN) | payer MEDICARE ==
--- NOTE | 2024-04-27 04:30 | ED ---
General Adult HPI - General Source: patient, EMS, RN notes reviewed, old records reviewed Mode of arrival: EMS Limitations: no limitations <Juvencio Hernandez - Last Filed: 04/27/24 06:30> <Christ Hall - Last Filed: 04/27/24 09:13> - General Chief complaint: Abdominal Pain Stated complaint: Nausea Vomiting Time Seen by Provider: 04/27/24 04:05 - History of Present Illness Initial comments: 83-year-old female presenting with mid abdominal pain which began suddenly several hours ago with associated nausea and vomiting. Pain is moderate to severe. Patient has had previous hernia about 8 months ago and states that this is a similar pain which did require surgery. (Juvencio Hernandez) - Related Data Home Medications Medication Instructions Recorded Confirmed Citalopram Hydrobromide [CeleXA] 40 mg PO QAM 01/16/18 11/25/23 Metoprolol Tartrate [Lopressor] 50 mg PO BID 01/16/18 11/25/23 Atorvastatin [Lipitor] 20 mg PO QAM 11/12/22 11/25/23 Clopidogrel [Plavix] 75 mg PO QAM 11/12/22 11/25/23 traZODone HCL [Desyrel] 50 mg PO HS PRN 11/12/22 11/25/23 Aspirin 81 mg PO DAILY 08/14/23 11/25/23 Albuterol Inhaler [Ventolin Hfa 1 - 2 puff INHALATION Q6H PRN 09/06/23 11/25/23 Inhaler] Ibuprofen [Motrin] 800 mg PO DIRECTED PRN 10/25/23 11/25/23 Previous Rx's Medication Instructions Recorded Acetaminophen Tab [Tylenol] 650 mg PO Q6H #30 tab 10/29/23 Docusate [Colace] 100 mg PO BID #20 capsule 10/29/23 Ibuprofen [Motrin] 600 mg PO Q6HR PRN #40 tab 10/29/23 oxyCODONE HCL [OxyIR] 5 mg PO Q6H PRN 3 Days #10 tab 10/29/23 Allergies Allergy/AdvReac Type Severity Reaction Status Date / Time Sulfa (Sulfonamide Allergy Rash/Hives Verified 11/25/23 09:10 Antibiotics) Review of Systems ROS Other: All systems not noted in ROS Statement are negative. <Juvencio Hernandez - Last Filed: 04/27/24 06:30> ROS Other: All systems not noted in ROS Statement are negative. <New Hallsseliane Torres - Last Filed: 04/27/24 09:13> ROS Statement: Those systems with pertinent positive or pertinent negative responses have been documented in the HPI. Past Medical History Past Medical History: COPD, CVA/TIA, GERD/Reflux, Hyperlipidemia, Hypertension, Osteoarthritis (OA) Additional Past Medical History / Comment(s): chronic back pain, incisional hernia abd. 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 hand surgery, cataracts removed, Pain Clinic Procedure. Past Anesthesia/Blood Transfusion Reactions: No Reported Reaction Additional Past Anesthesia/Blood Transfusion Reaction / Comment(s): Sister TATO. Past Psychological History: Anxiety Smoking Status: Never smoker - Past Family History Mother Family Medical History: No Reported History <Juvencio Hernandez - Last Filed: 04/27/24 06:30> General Exam General appearance: alert, in distress Head exam: Present: atraumatic, normocephalic Eye exam: Present: normal appearance, PERRL ENT exam: Present: normal exam Neck exam: Present: normal inspection. Absent: tenderness, meningismus Respiratory exam: Present: normal lung sounds bilaterally. Absent: respiratory distress, wheezes Cardiovascular Exam: Present: regular rate, normal rhythm GI/Abdominal exam: Present: soft, distended, tenderness, hernia Extremities exam: Present: normal inspection, normal capillary refill Neurological exam: Present: alert, oriented X3, CN II-XII intact. Absent: motor sensory deficit Psychiatric exam: Present: anxious Skin exam: Present: warm, dry, intact <Juvencio Hernandez - Last Filed: 04/27/24 06:30> Course Vital Signs 04/27/24 04/27/24 04:10 06:42 Pulse Rate 59 L 73 Respiratory 18 18 Rate Blood Pressure 192/84 140/73 O2 Sat by Pulse 100 93 L Oximetry Medical Decision Making - Lab Data Result diagrams: 04/27/24 04:18 04/27/24 04:18 <Juvencio Hernandez - Last Filed: 04/27/24 06:30> - Lab Data Result diagrams: 04/27/24 04:18 04/27/24 04:18 <RafaelChrist D - Last Filed: 04/27/24 09:13> - Medical Decision Making Was pt. sent in by a medical professional or institution (, [facility], CABIN SERVICE AGENT, urgent care, hospital, or prison...) When possible be specific @ -No Did you speak to anyone other than the patient for history (EMS, parent, family, police, friend...)? What history was obtained from this source @ -No Did you review nursing and triage notes (agree or disagree)? Why? @ -I reviewed and agree with nursing and triage notes Were old charts reviewed (outside hosp., previous admission, EMS record, old EKG, old radiological studies, urgent care reports/EKG's, prison records)? Report findings @ -No old charts were reviewed Differential Diagnosis (chest pain, altered mental status, abdominal pain women, abdominal pain men, vaginal bleeding, weakness, fever, dyspnea, syncope, headache, dizziness, GI bleed, back pain, seizure, CVA, palpatations, mental health, musculoskeletal)? @ -Not applicable EKG interpreted by me (3pts min.). @Sinus bradycardia rate of 59, NV interval 168, QRS duration 85, QTc 485, no ST segment elevation X-rays interpreted by me (1pt min.). @ -None done CT interpreted by me (1pt min.). @ -CT abdomen pelvis ordered, results pending ultrasound of the gallbladder and right upper quadrant ordered, results pending U/S interpreted by me (1pt. min.). @ -None done What testing was considered but not performed or refused? (CT, X-rays, U/S, labs)? Why? @ -None What meds were considered but not given or refused? Why? @ -None Did you discuss the management of the patient with other professionals (professionals i.e. [facility]AHIDA Martinez, CABIN SERVICE AGENT, lab, RT, psych nurse, family welfare social work professor, liquified natural gas technician, teacher, fare enforcement officer, piano case maker)? Give summary @ -No Was smoking cessation discussed for >3mins.? @ -No Was critical care preformed (if so, how long)? @ -No Were there social determinants of health that impacted care today? How? (Homelessness, low income, unemployed, alcoholism, drug addiction, transportation, low edu. Level, literacy, decrease access to med. care, shelter, rehab)? @ -No Was there de-escalation of care discussed even if they declined (Discuss DNR or withdrawal of care, Hospice)? DNR status @ -No What co-morbidities impacted this encounter? (DM, HTN, Smoking, COPD, CAD, Cancer, CVA, ARF, Chemo, Hep., AIDS, mental health diagnosis, sleep apnea, morbid obesity)? @Prior hernia repair Was patient admitted / discharged? Hospital course, mention meds given and route, prescriptions, significant lab abnormalities, going to OR and other pertinent info. @ -[Patient care signed out to Dr. Hall at shift change awaiting imaging, laboratory testing and reevaluation. (Juvencio Hernandez) Patient care signed out to me by previous shift physician, Dr. Hernandez. Briefly, patient is 83-year-old female presents to the emergency department for chief complaint of abdominal pain. She had a CT that was questionable for fluid around the gallbladder. Plan at signout was to follow-up with pending gallbladder ultrasound. Labs reviewed. She does have slight transaminitis, lactic acidosis. No leukocytosis. Ultrasound was obtained. Ultrasound reviewed by me showing gallstones without any gallbladder wall thickening or pericholecystic fluid. Patient reevaluated at the bedside states that she had postprandial pain 20 minutes after eating. She states that her pain is more epigastric she does have history of esophageal issues. States that her pain is better after having had analgesics. States that she has chills but no fevers. Case, including clinical presentation labs and imaging were discussed with Dr. Mixon given that she has establish care with him since he performed one of her hernia surgeries. At the bedside she still having some epigastric pain. Dr. Mixon requested patient be admitted for further care. Diagnosis/symptom? @ -Symptomatic cholelithiasis versus choledocho lithiasis Acute, or Chronic, or Acute on Chronic? @ -Acute Uncomplicated (without systemic symptoms) or Complicated (systemic symptoms)? @ -Uncomplicated Side effects of treatment? @ -None Exacerbation, Progression, or Severe Exacerbation] @ -No Poses a threat to life or bodily function? @ -Yes (Christ Hall) - Lab Data Lab Results 04/27/24 04/27/24 04/27/24 Range/Units 04:18 04:18 04:18 WBC 9.4 (3.8-10.6) k/uL RBC 4.71 (3.80-5.40) m/uL Hgb 13.9 (11.4-16.0) gm/dL Hct 42.7 (34.0-46.0) % MCV 90.7 (80.0-100.0) fL MCH 29.6 (25.0-35.0) pg MCHC 32.6 (31.0-37.0) g/dL RDW 13.1 (11.5-15.5) % Plt Count 262 (150-450) k/uL MPV 7.2 Neutrophils % 81 % Lymphocytes % 13 % Monocytes % 5 % Eosinophils % 0 % Basophils % 0 % Neutrophils # 7.6 (1.3-7.7) k/uL Lymphocytes # 1.2 (1.0-4.8) k/uL Monocytes # 0.5 (0-1.0) k/uL Eosinophils # 0.0 (0-0.7) k/uL Basophils # 0.0 (0-0.2) k/uL PT (10.0-12.5) sec INR (<1.2) APTT (22.0-30.0) sec Sodium 139 (137-145) mmol/L Potassium 4.0 (3.5-5.1) mmol/L Chloride 107 (98-107) mmol/L Carbon Dioxide 22 (22-30) mmol/L Anion Gap 10 mmol/L BUN 13 (7-17) mg/dL Creatinine 0.62 (0.52-1.04) mg/dL Est GFR (CKD-EPI)AfAm >90 (>60 ml/min/1.73 sqM) Est GFR (CKD-EPI)NonAf 85 (>60 ml/min/1.73 sqM) Glucose 196 H (74-99) mg/dL Lactic Ac Sepsis Rflx Plasma Lactic Acid Kevin 3.0 H* (0.7-2.0) mmol/L Calcium 9.1 (8.4-10.2) mg/dL Total Bilirubin 2.5 H (0.2-1.3) mg/dL AST 468 H (14-36) U/L ALT 338 H (4-34) U/L Alkaline Phosphatase 161 H (38-126) U/L Total Protein 6.3 (6.3-8.2) g/dL Albumin 3.9 (3.5-5.0) g/dL Amylase 61 (30-110) U/L Lipase 221 (23-300) U/L Urine Color Urine Appearance (Clear) Urine pH (5.0-8.0) Ur Specific [place] (1.001-1.035) Urine Protein (Negative) Urine Glucose (UA) (Negative) Urine Ketones (Negative) Urine Blood (Negative) Urine Nitrite (Negative) Urine Bilirubin (Negative) Urine Urobilinogen (<2.0) mg/dL Ur Leukocyte Esterase (Negative) 04/27/24 04/27/24 04/27/24 Range/Units 05:15 05:35 05:45 WBC (3.8-10.6) k/uL RBC (3.80-5.40) m/uL Hgb (11.4-16.0) gm/dL Hct (34.0-46.0) % MCV (80.0-100.0) fL MCH (25.0-35.0) pg MCHC (31.0-37.0) g/dL RDW (11.5-15.5) % Plt Count (150-450) k/uL MPV Neutrophils % % Lymphocytes % % Monocytes % % Eosinophils % % Basophils % % Neutrophils # (1.3-7.7) k/uL Lymphocytes # (1.0-4.8) k/uL Monocytes # (0-1.0) k/uL Eosinophils # (0-0.7) k/uL Basophils # (0-0.2) k/uL PT 11.5 (10.0-12.5) sec INR 1.1 (<1.2) APTT 19.7 L (22.0-30.0) sec Sodium (137-145) mmol/L Potassium (3.5-5.1) mmol/L Chloride (98-107) mmol/L Carbon Dioxide (22-30) mmol/L Anion Gap mmol/L BUN (7-17) mg/dL Creatinine (0.52-1.04) mg/dL Est GFR (CKD-EPI)AfAm (>60 ml/min/1.73 sqM) Est GFR (CKD-EPI)NonAf (>60 ml/min/1.73 sqM) Glucose (74-99) mg/dL Lactic Ac Sepsis Rflx Y Plasma Lactic Acid Kevin (0.7-2.0) mmol/L Calcium (8.4-10.2) mg/dL Total Bilirubin (0.2-1.3) mg/dL AST (14-36) U/L ALT (4-34) U/L Alkaline Phosphatase (38-126) U/L Total Protein (6.3-8.2) g/dL Albumin (3.5-5.0) g/dL Amylase (30-110) U/L Lipase (23-300) U/L Urine Color Yellow Urine Appearance Clear (Clear) Urine pH 8.5 H (5.0-8.0) Ur Specific [place] 1.025 (1.001-1.035) Urine Protein Trace H (Negative) Urine Glucose (UA) 1+ H (Negative) Urine Ketones Trace H (Negative) Urine Blood Negative (Negative) Urine Nitrite Negative (Negative) Urine Bilirubin Negative (Negative) Urine Urobilinogen <2.0 (<2.0) mg/dL Ur Leukocyte Esterase Negative (Negative) 04/27/24 Range/Units 07:43 WBC (3.8-10.6) k/uL RBC (3.80-5.40) m/uL Hgb (11.4-16.0) gm/dL Hct (34.0-46.0) % MCV (80.0-100.0) fL MCH (25.0-35.0) pg MCHC (31.0-37.0) g/dL RDW (11.5-15.5) % Plt Count (150-450) k/uL MPV Neutrophils % % Lymphocytes % % Monocytes % % Eosinophils % % Basophils % % Neutrophils # (1.3-7.7) k/uL Lymphocytes # (1.0-4.8) k/uL Monocytes # (0-1.0) k/uL Eosinophils # (0-0.7) k/uL Basophils # (0-0.2) k/uL PT (10.0-12.5) sec INR (<1.2) APTT (22.0-30.0) sec Sodium (137-145) mmol/L Potassium (3.5-5.1) mmol/L Chloride (98-107) mmol/L Carbon Dioxide (22-30) mmol/L Anion Gap mmol/L BUN (7-17) mg/dL Creatinine (0.52-1.04) mg/dL Est GFR (CKD-EPI)AfAm (>60 ml/min/1.73 sqM) Est GFR (CKD-EPI)NonAf (>60 ml/min/1.73 sqM) Glucose (74-99) mg/dL Lactic Ac Sepsis Rflx Plasma Lactic Acid Kevin 1.7 (0.7-2.0) mmol/L Calcium (8.4-10.2) mg/dL Total Bilirubin (0.2-1.3) mg/dL AST (14-36) U/L ALT (4-34) U/L Alkaline Phosphatase (38-126) U/L Total Protein (6.3-8.2) g/dL Albumin (3.5-5.0) g/dL Amylase (30-110) U/L Lipase (23-300) U/L Urine Color Urine Appearance (Clear) Urine pH (5.0-8.0) Ur Specific [place] (1.001-1.035) Urine Protein (Negative) Urine Glucose (UA) (Negative) Urine Ketones (Negative) Urine Blood (Negative) Urine Nitrite (Negative) Urine Bilirubin (Negative) Urine Urobilinogen (<2.0) mg/dL Ur Leukocyte Esterase (Negative) Disposition <Juvencio Hernandez - Last Filed: 04/27/24 06:30> Decision Time: 09:13 <Christ Hall - Last Filed: 04/27/24 09:13> Clinical Impression: Abdominal pain Disposition: ADMITTED IP TO THIS HOSP Condition: Fair Referrals: Kevin Ríos MD [Primary Care Provider] - 1-2 days
[2024-04-27 04:41] LABS: Basophils % (A) 0 %; Eosinophils % (A) 0 %; HCT 42.7 % (34.0-46.0); HGB 13.9 gm/dL (11.4-16.0); Lymphocytes # (A) 1.2 k/uL (1.0-4.8); Lymphocytes % (A) 13 %; MCH 29.6 pg (25.0-35.0); MCHC 32.6 g/dL (31.0-37.0); MCV 90.7 fL (80.0-100.0); Mean Platelet Volume 7.2; Monocytes # (A) 0.5 k/uL (0-1.0); Monocytes % (A) 5 %; Neutrophils # (A) 7.6 k/uL (1.3-7.7); Neutrophils % (A) 81 %; Platelet Count 262 k/uL (150-450); RBC 4.71 m/uL (3.80-5.40); RDW 13.1 % (11.5-15.5); WBC 9.4 k/uL (3.8-10.6)
[2024-04-27] MEDS: ONDANSETRON 4 MG/2 ML VIAL IVP STA (04:52)
[2024-04-27] MEDS: SODIUM CHLORIDE 0.9% 500 ML 500 ML IV STA (04:52)
[2024-04-27] MEDS: HYDROmorphone 0.5 MG/0.5 ML SYRINGE IVP STA (04:52)
[2024-04-27 04:59] LABS: ALT 338 U/L (4-34); AST 468 U/L (14-36); African American GFR (CKD) >90 (>60 ml/min/1.73 sqM); Albumin 3.9 g/dL (3.5-5.0); Alkaline Phosphatase 161 U/L (38-126); Amylase 61 U/L (30-110); Anion Gap 10 mmol/L; Blood Urea Nitrogen 13 mg/dL (7-17); Calcium 9.1 mg/dL (8.4-10.2); Carbon Dioxide 22 mmol/L (22-30); Chloride 107 mmol/L (98-107); Glucose 196 mg/dL (74-99); Lipase 221 U/L (23-300); Non-African American GFR(CKD) 85 (>60 ml/min/1.73 sqM); Sodium 139 mmol/L (137-145); Total Bilirubin 2.5 mg/dL (0.2-1.3); Total Protein 6.3 g/dL (6.3-8.2)
[2024-04-27 05:59] LABS: INR 1.1 (<1.2); Prothrombin Time 11.5 sec (10.0-12.5)
[2024-04-27 06:13] LABS: Appearance,Urine Clear (Clear); Bilirubin,Urine Negative (Negative); Blood,Urine Negative (Negative); Color,Urine Yellow; Glucose,Urine (UA) 1+ (Negative); Ketones,Urine Trace (Negative); Leukocyte Esterase,Urine Negative (Negative); Nitrite,Urine Negative (Negative); PH, Urine 8.5 (5.0-8.0); Protein,Urine Trace (Negative); Specific Gravity,Urine 1.025 (1.001-1.035); Urobilinogen,Urine <2.0 mg/dL (<2.0)
[2024-04-27 06:33] LABS: Partial Thromboplastin Time 19.7 sec (22.0-30.0)
--- NOTE | 2024-04-27 06:48 | CT ---
EXAM: CT Abdomen and Pelvis With Intravenous Contrast CLINICAL HISTORY: Reason: epigastric ab pain TECHNIQUE: Axial computed tomography images of the abdomen and pelvis with intravenous contrast. CTDI is 28.8 mGy and DLP is 1280 mGy-cm. This CT exam was performed using one or more of the following dose reduction techniques: automated exposure control, adjustment of the mA and/or kV according to patient size, and/or use of iterative reconstruction technique. COMPARISON: No relevant prior studies available. FINDINGS: Lung bases: Unremarkable. No mass. No consolidation. ABDOMEN: Liver: Cyst seen within the posterior hepatic dome. No solid hepatic lesions. Smooth hepatic contour. Gallbladder and bile ducts: There is questionable mild concentric wall thickening of the gallbladder, without significant distention. No intra- or extrahepatic biliary ductal dilatation.. Pancreas: Unremarkable. No mass. No ductal dilation. Spleen: Unremarkable. No splenomegaly. Adrenals: Unremarkable. No mass. Kidneys and ureters: No obstructive uropathy. No solid renal lesions. Simple appearing 9 cm right lower pole renal cyst. Stomach and bowel: Large hiatal hernia. No bowel obstruction. There is no definite bowel wall thickening. Colonic diverticulosis without evidence of an acute diverticulitis.. PELVIS: Appendix: No findings to suggest acute appendicitis. Bladder: Unremarkable. No mass. Reproductive: Unremarkable as visualized. ABDOMEN and PELVIS: Intraperitoneal space: Unremarkable. No free air. No significant fluid collection. Bones/joints: No acute fracture. No dislocation. Soft tissues: Unremarkable. Vasculature: Unremarkable. No abdominal aortic aneurysm. Lymph nodes: Unremarkable. No enlarged lymph nodes. IMPRESSION: Questionable mild concentric wall thickening of the gallbladder. Early or mild acute cholecystitis is not excluded. If patient has pain localized to the right upper quadrant, consider further evaluation with ultrasound for better characterization. Otherwise no evidence of acute inflammatory or obstructive process within the abdomen or pelvis. Colonic diverticulosis without evidence of an acute diverticulitis. Large hiatal hernia.
[2024-04-27] MEDS: SODIUM CHLORIDE 0.9% 1,000 ML IV SCH ×2 (07:08→09:32)
--- NOTE | 2024-04-27 08:10 | US ---
EXAMINATION TYPE: US gallbladder DATE OF EXAM: 04/27/2024 COMPARISON: CT abdomen and pelvis 04/27/2024 CLINICAL INDICATION: Female, 83 years old with history of epigastric pain/hyperbilirubinemia; Epigast rosie pain. TECHNIQUE: Grayscale and color Doppler imaging of the right upper quadrant was performed. FINDINGS: EXAM MEASUREMENTS: Liver Length: 16.2 cm Gallbladder Wall: 0.2 cm CBD: 0.4 cm Right Kidney: 11.5 x 4.3 x 5.6 cm Pancreas: Echogenic in appearance. Tail limited due to overlying bowel gas. Liver: Appears coarse. Unable to see cystic lesion from CT. Gallbladder: Appears filled with stones. No lumen visualized. Evidence for sonographic Dallas's sign: neg CBD: wnl Right Kidney: Inferior mid anechoic lesion= 7.5 x 8.0 x 8.0 cm. Echogenic appearance of the pancreas without focal lesion identified. Limited visualization of the ta il due to overlying bowel gas. Liver demonstrates coarsened echotexture without overt cirrhotic appea omid. Cyst seen on prior CT within the posterior right hepatic dome is not well visualized in today' s exam. Gallbladder is filled with stones. No wall thickening or surrounding fluid identified. Negati ve sonographic Dallas's sign. Common bile duct is within normal limits. No hydronephrosis of the righ t kidney. Right renal simple cyst. No shadowing calculi identified. IMPRESSION: Cholelithiasis without ultrasound evidence for acute cholecystitis. [facility] Letty Collins, , 04/27/2024 8:07 AM
[2024-04-27] MEDS ORDERED: NALOXONE 0.4 MG/ML 1 ML VIAL IV PRN (09:11)
[2024-04-27] MEDS: LACTATED RINGERS 1,000 ML IV ONE (10:50)
[2024-04-27] MEDS: DEXAMETHASONE SOD PHOSPHATE 4 MG/ML 1 ML VIAL IVP STA (11:02)
--- NOTE | 2024-04-27 12:35 | P.GSHP ---
History of Present Illness H&P Date: 04/27/24 Chief Complaint: Right upper quadrant pain This is an 83-year-old female with complaints of right upper quadrant pain for 24 hours. Patient pain of upper quadrant rating to her back. Patient was returned emergency room. Patient evidence of cholelithiasis. She has minimal elevations in her liver function test. Patient states that she did take her Plavix and aspirin yesterday morning. Past Medical History Past Medical History: COPD, CVA/TIA, GERD/Reflux, Hyperlipidemia, Hypertension, Osteoarthritis (OA) Additional Past Medical History / Comment(s): chronic back pain, incisional hernia abd. 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 hand surgery, cataracts removed, Pain Clinic Procedure. Past Anesthesia/Blood Transfusion Reactions: No Reported Reaction Additional Past Anesthesia/Blood Transfusion Reaction / Comment(s): Sister PONGarrick. Past Psychological History: Anxiety Smoking Status: Never smoker - Past Family History Mother Family Medical History: No Reported History Medications and Allergies Home Medications Medication Instructions Recorded Confirmed Type Clopidogrel [Plavix] 75 mg PO QAM 11/12/22 11/25/23 History traZODone HCL [Desyrel] 50 mg PO HS PRN 11/12/22 11/25/23 History Aspirin 81 mg PO DAILY 08/14/23 11/25/23 History Atorvastatin [Lipitor] 40 mg PO DAILY 04/27/24 04/27/24 History Citalopram Hydrobromide [CeleXA] 40 mg PO DAILY 04/27/24 04/27/24 History HYDROcodone/APAP 7.5-325MG [[place] 1 tab PO TID PRN 04/27/24 04/27/24 History 7.5-325] Ipratropium-Albuterol Nebulize 3 ml INHALATION RT-QID PRN 04/27/24 04/27/24 History [Duoneb 0.5 mg-3 mg/3 ml Soln] Losartan Potassium 100 mg PO HS 04/27/24 04/27/24 History Metoprolol Tartrate [Lopressor] 25 mg PO BID 04/27/24 04/27/24 History Omeprazole 40 mg PO DAILY 04/27/24 04/27/24 History amLODIPine [Norvasc] 2.5 mg PO HS 04/27/24 04/27/24 History Allergies Allergy/AdvReac Type Severity Reaction Status Date / Time Sulfa (Sulfonamide Allergy Rash/Hives Verified 04/27/24 10:40 Antibiotics) Surgical - Exam Vital Signs Pulse Resp BP Pulse Ox 59 L 18 192/84 100 04/27/24 04:10 04/27/24 04:10 04/27/24 04:10 04/27/24 04:10 - General well developed, well nourished, moderate distress - Eyes PERRL - ENT normal pinna - Neck no masses - Respiratory normal expansion - Cardiovascular Rhythm: regular - Abdomen Mild right upper quadrant tenderness Abdomen: soft Results - Labs 04/27/24 04:18 04/27/24 04:18 Abnormal Lab Results - Last 24 Hours (Table) 04/27/24 04/27/24 04/27/24 Range/Units 04:18 04:18 05:15 APTT 19.7 L (22.0-30.0) sec Glucose 196 H (74-99) mg/dL Plasma Lactic Acid Kevin 3.0 H* (0.7-2.0) mmol/L Total Bilirubin 2.5 H (0.2-1.3) mg/dL AST 468 H (14-36) U/L ALT 338 H (4-34) U/L Alkaline Phosphatase 161 H (38-126) U/L Urine pH (5.0-8.0) Urine Protein (Negative) Urine Glucose (UA) (Negative) Urine Ketones (Negative) 04/27/24 Range/Units 05:45 APTT (22.0-30.0) sec Glucose (74-99) mg/dL Plasma Lactic Acid Kevin (0.7-2.0) mmol/L Total Bilirubin (0.2-1.3) mg/dL AST (14-36) U/L ALT (4-34) U/L Alkaline Phosphatase (38-126) U/L Urine pH 8.5 H (5.0-8.0) Urine Protein Trace H (Negative) Urine Glucose (UA) 1+ H (Negative) Urine Ketones Trace H (Negative) Diabetes panel 04/27/24 Range/Units 04:18 Sodium 139 (137-145) mmol/L Potassium 4.0 (3.5-5.1) mmol/L Chloride 107 (98-107) mmol/L Carbon Dioxide 22 (22-30) mmol/L BUN 13 (7-17) mg/dL Creatinine 0.62 (0.52-1.04) mg/dL Glucose 196 H (74-99) mg/dL Calcium 9.1 (8.4-10.2) mg/dL AST 468 H (14-36) U/L ALT 338 H (4-34) U/L Alkaline Phosphatase 161 H (38-126) U/L Total Protein 6.3 (6.3-8.2) g/dL Albumin 3.9 (3.5-5.0) g/dL Calcium panel 04/27/24 Range/Units 04:18 Calcium 9.1 (8.4-10.2) mg/dL Albumin 3.9 (3.5-5.0) g/dL Pituitary panel 04/27/24 Range/Units 04:18 Sodium 139 (137-145) mmol/L Potassium 4.0 (3.5-5.1) mmol/L Chloride 107 (98-107) mmol/L Carbon Dioxide 22 (22-30) mmol/L BUN 13 (7-17) mg/dL Creatinine 0.62 (0.52-1.04) mg/dL Glucose 196 H (74-99) mg/dL Calcium 9.1 (8.4-10.2) mg/dL Adrenal panel 04/27/24 Range/Units 04:18 Sodium 139 (137-145) mmol/L Potassium 4.0 (3.5-5.1) mmol/L Chloride 107 (98-107) mmol/L Carbon Dioxide 22 (22-30) mmol/L BUN 13 (7-17) mg/dL Creatinine 0.62 (0.52-1.04) mg/dL Glucose 196 H (74-99) mg/dL Calcium 9.1 (8.4-10.2) mg/dL Total Bilirubin 2.5 H (0.2-1.3) mg/dL AST 468 H (14-36) U/L ALT 338 H (4-34) U/L Alkaline Phosphatase 161 H (38-126) U/L Total Protein 6.3 (6.3-8.2) g/dL Albumin 3.9 (3.5-5.0) g/dL - Imaging US - abdomen: report reviewed (Cholelithiasis with normal common bile duct) Assessment and Plan Assessment: Symptomatic cholelithiasis and biliary colic. Patient most likely passed a gallstone. Patient has been on Plavix and aspirin. This will be held. We will plan for laparoscopic cholecystectomy i on April 30.
[2024-04-27] MEDS: LACTATED RINGERS 1,000 ML IV SCH (16:41)
[2024-04-27] MEDS: amLODIPine 2.5 MG TAB PO SCH (21:07)
[2024-04-27] MEDS: LOSARTAN 50 MG TAB PO SCH (21:07)
[2024-04-27] MEDS: METOPROLOL TARTRATE 25 MG TAB PO SCH (21:07)
[2024-04-27] MEDS: traZODone HCL 50 MG TAB PO SCH (21:07)
[2024-04-28] MEDS: ACETAMINOPHEN TAB 325 MG TAB PO PRN (00:36)
[2024-04-28] MEDS: PANTOPRAZOLE 40 MG TABLET PO SCH (06:35)
[2024-04-28] MEDS: HYDROcodone/APAP 5-325MG 1 EACH TAB PO PRN (06:35)
[2024-04-28] MEDS: ATORVASTATIN 40 MG TAB PO SCH (08:33)
[2024-04-28 08:40] LABS: Basophils # (A) 0.03 X 10*3/uL (0.00-0.10); Basophils % (A) 0.4 %; Eosinophils # (A) 0.03 X 10*3/uL (0.04-0.35); Eosinophils % (A) 0.4 %; HCT 37.8 % (37.2-46.3); HGB 12.1 g/dL (12.0-15.0); Lymphocytes # (A) 1.33 X 10*3/uL (0.90-5.00); Lymphocytes % (A) 17.4 %; MCV 93.8 FL (80.0-97.0); Mean Platelet Volume 10.5 FL (9.5-12.2); Monocytes # (A) 0.89 X 10*3/uL (0.20-1.00); Monocytes % (A) 11.6 %; NRBC Per 100 WBC 0 X 10*3/uL (0.00-0.01); Neutrophils # (A) 5.33 X 10*3/uL (1.80-7.70); Neutrophils % (A) 69.5 %; Platelet Count 217 X 10*3/uL (140-440); RBC 4.03 X 10*6/uL (4.10-5.20); RDW 13.5 % (11.5-14.5); WBC 7.66 X 10*3/uL (4.50-10.00)
[2024-04-28] MEDS ORDERED: PANTOPRAZOLE 40 MG/10 ML VIAL IV SCH (09:00)
[2024-04-28 11:52] LABS: ALT 242 U/L (8-44); AST 119 U/L (13-35); Albumin 3.4 g/dL (3.8-4.9); Alkaline Phosphatase 120 U/L (41-126); BUN/Creat Ratio 12.57 Ratio (12.00-20.00); Blood Urea Nitrogen 8.8 mg/dL (9.0-27.0); Calcium 8.3 mg/dL (8.7-10.3); Carbon Dioxide 23.8 mmol/L (21.6-31.8); Chloride 113 mmol/L (96-109); Globulin 1.7 g/dL (1.6-3.3); Glucose 112 mg/dL (70-110); Potassium 4.4 mmol/L (3.5-5.5); Sodium 145 mmol/L (135-145); Total Bilirubin 0.3 mg/dL (0.3-1.2); Total Protein 5.1 g/dL (6.2-8.2)
--- NOTE | 2024-04-28 12:24 | P.PN ---
Subjective Progress Note Date: 04/28/24 SURGICAL PROGRESS NOTE CHIEF COMPLAINT: Symptomatic cholelithiasis and biliary colic HISTORY OF PRESENT ILLNESS: Patient reports improvement in her abdominal pain. She denies any nausea or vomiting. She is tolerating low-fat diet. Afebrile. Total bilirubin is down from 2.5-0.[address] Escobedo is covering for Dr. Mixon PHYSICAL EXAM: VITAL SIGNS: Reviewed. GENERAL: Well-developed in no acute distress. HEENT: No sclera icterus. Extraocular movements grossly intact. Moist buccal mucosa. Head is atraumatic, normocephalic. ABDOMEN: Soft. Nondistended. Nontender. NEUROLOGIC: Alert and oriented. Cranial nerves II through XII grossly intact. ASSESSMENT: 1. Symptomatic cholelithiasis and biliary colic. LFTs trending downwards and total bilirubin normalized.. Patient likely passed gallstone. PLAN: -Plan for laparoscopic cholecystectomy on April [address] Mixon -Continue antibiotics -Continue low-fat diet -Repeat labs in a.m. Physician Real Estate Closing Coordinator note has been reviewed by physician. Signing provider agrees with the documented findings, assessment, and plan of care. I have personally seen and examined the patient, reviewed the INTERLIBRARY LOAN SERVICES LIBRARIAN /PAs history, exam and MDM and agree with the assessment and plan as written. Based on total visit time, I have performed more than 50% of the visit. As above: Patient with suspected choledocholithiasis. Recheck labs tomorrow. Agree with plans for cholecystectomy as long as labs are improving. Continue antibiotics. Objective - Vital Signs Vital signs: Vital Signs Temp 97.8 F 04/28/24 07:09 Pulse 60 04/28/24 07:09 Resp 20 04/28/24 07:09 BP 166/75 04/28/24 07:09 Pulse Ox 96 04/28/24 07:09 FiO2 Intake & Output 04/27/24 04/28/24 04/28/24 18:59 06:59 18:59 Intake Total 240 Balance 240 Weight 83.915 kg Intake: Oral 240 Other: Voiding Method Toilet # Voids 4 - Labs CBC & Chem 7: 04/28/24 03:00 04/28/24 03:00 Labs: Abnormal Lab Results - Last 24 Hours (Table) 01/28/25 Range/Units 03:00 RBC 4.03 L (4.10-5.20) X 10*6/uL Immature Gran # 0.05 H (0.00-0.04) X 10*3/uL Eosinophils # 0.03 L (0.04-0.35) X 10*3/uL
[2024-04-28] MEDS: CITALOPRAM HYDROBROMIDE 20 MG TAB PO SCH (12:55)
[2024-04-28] MEDS: DOCUSATE 100 MG CAP PO SCH (20:50)
[2024-04-29 08:54] LABS: Basophils # (A) 0.07 X 10*3/uL (0.00-0.10); Eosinophils # (A) 0.41 X 10*3/uL (0.04-0.35); Eosinophils % (A) 5.8 %; HCT 36.7 % (37.2-46.3); HGB 11.9 g/dL (12.0-15.0); Lymphocytes # (A) 2.21 X 10*3/uL (0.90-5.00); Lymphocytes % (A) 31.3 %; MCH 29.3 pg (27.0-32.0); MCHC 32.4 g/dL (32.0-37.0); MCV 90.4 FL (80.0-97.0); Mean Platelet Volume 9.7 FL (9.5-12.2); Monocytes # (A) 0.91 X 10*3/uL (0.20-1.00); Monocytes % (A) 12.9 %; NRBC Per 100 WBC 0 X 10*3/uL (0.00-0.01); Neutrophils # (A) 3.43 X 10*3/uL (1.80-7.70); Neutrophils % (A) 48.4 %; Platelet Count 199 X 10*3/uL (140-440); RBC 4.06 X 10*6/uL (4.10-5.20); RDW 13.7 % (11.5-14.5); WBC 7.07 X 10*3/uL (4.50-10.00)
[2024-04-29 08:59] LABS: ALT 158 U/L (8-44); AST 48 U/L (13-35); Albumin 3.3 g/dL (3.8-4.9); Alkaline Phosphatase 103 U/L (41-126); BUN/Creat Ratio 15.57 Ratio (12.00-20.00); Blood Urea Nitrogen 10.9 mg/dL (9.0-27.0); Calcium 8.2 mg/dL (8.7-10.3); Chloride 112 mmol/L (96-109); Globulin 1.5 g/dL (1.6-3.3); Glucose 79 mg/dL (70-110); Sodium 144 mmol/L (135-145); Total Bilirubin 0.3 mg/dL (0.3-1.2); Total Protein 4.8 g/dL (6.2-8.2)
--- NOTE | 2024-04-29 11:52 | P.PN ---
Subjective Progress Note Date: 04/29/24 SURGICAL PROGRESS NOTE CHIEF COMPLAINT: Symptomatic cholelithiasis and biliary colic HISTORY OF PRESENT ILLNESS: Patient currently denies any abdominal pain. She denies any nausea or vomiting. She is tolerating the low-fat diet. Afebrile. Elevated BP 173/76, prior to BP meds this morning. Afebrile. WBC 7.07 Hgb 11.9 total bilirubin 0.[address] Escobedo is covering for Dr. Mixon PHYSICAL EXAM: VITAL SIGNS: Reviewed. GENERAL: Well-developed in no acute distress. ABDOMEN: Soft. Nondistended. Nontender. NEUROLOGIC: Alert and oriented. Cranial nerves II through XII grossly intact. ASSESSMENT: 1. Symptomatic cholelithiasis and biliary colic. LFTs trending downwards and total bilirubin normalized.. Patient likely passed gallstone. 2. Choledocholithiasis. LFTs trending downwards and total bilirubin normalized.. Patient likely passed gallstone. PLAN: -Plan for laparoscopic cholecystectomy on April [address] Mixon -N.p.o. after midnight -Continue antibiotics -Continue low-fat diet -Repeat labs in a.m. -Plavix and aspirin remain on hold Physician Machine Tool Mechanic note has been reviewed by physician. Signing provider agrees with the documented findings, assessment, and plan of care. Objective - Vital Signs Vital signs: Vital Signs Temp 98.4 F 04/29/24 08:10 Pulse 59 L 04/29/24 08:10 Resp 16 04/29/24 08:10 BP 173/76 04/29/24 08:10 Pulse Ox 96 04/29/24 08:10 FiO2 Intake & Output 04/28/24 04/29/24 04/29/24 18:59 06:59 18:59 Other: Voiding Method Toilet Toilet # Voids 3 3 - Labs CBC & Chem 7: 04/29/24 03:13 04/29/24 03:13 Labs: Abnormal Lab Results - Last 24 Hours (Table) 04/28/24 04/29/24 04/29/24 Range/Units 03:00 03:13 03:13 RBC 4.06 L (4.10-5.20) X 10*6/uL Hgb 11.9 L (12.0-15.0) g/dL Hct 36.7 L (37.2-46.3) % Eosinophils # 0.41 H (0.04-0.35) X 10*3/uL Chloride 113 H 112 H (96-109) mmol/L BUN 8.8 L (9.0-27.0) mg/dL Glucose 112 H (70-110) mg/dL Calcium 8.3 L 8.2 L (8.7-10.3) mg/dL AST 119 H 48 H (13-35) U/L ALT 242 H 158 H (8-44) U/L Total Protein 5.1 L 4.8 L (6.2-8.2) g/dL Albumin 3.4 L 3.3 L (3.8-4.9) g/dL Globulin 1.5 L (1.6-3.3) g/dL
[2024-04-29] MEDS: amLODIPine 5 MG TAB PO SCH (14:48)
--- NOTE | 2024-04-29 17:35 | XR ---
EXAMINATION TYPE: XR chest 2V DATE OF EXAM: 04/29/2024 5:25 PM COMPARISON: Chest radiographs from 09/22/2015, CT abdomen and pelvis 04/27/2024 TECHNIQUE: XR chest 2V Frontal and lateral views of the chest. CLINICAL INDICATION:Female, 83 years old with history of cap; FINDINGS: Lungs/Pleura: There is no evidence of pleural effusion, focal consolidation, or pneumothorax. Elevat ion of the left hemidiaphragm. Pulmonary vascularity: Unremarkable. Heart/mediastinum: Cardiomediastinal silhouette is stable. Known large hiatal hernia is better apprec iated on CT. Atherosclerotic calcifications are seen in the aorta. Musculoskeletal: No acute osseous pathology. Vertebral augmentation changes of the T12 vertebral body . Multilevel degenerative disc disease. IMPRESSION: 1. No acute cardiopulmonary disease/process. 2. Known large hiatal hernia is better appreciated on CT. [facility], , 04/29/2024 5:33 PM
[2024-04-29] MEDS: IPRATROPIUM-ALBUTEROL 3 ML NEB INHALATION SCH (21:48)
--- NOTE | 2024-04-30 01:51 | CONS ---
CONSULTATION HISTORY OF PRESENT ILLNESS: This is an 83-year-old white female. She came in with acute cholecystitis with choledocholithiasis. Placed on IV antibiotics prophylactically due to severe right upper quadrant abdominal pain. She is scheduled for surgery in 2 to 3 days. HOME MEDICINES: Reviewed, include, 1. Losartan 100 mg daily. 2. Lipitor 40 daily. 3. Lopressor 25 b.i.d. 4. DuoNeb q.i.d. 5. Celexa 40 daily. 6. Desyrel 50 daily. 7. Omeprazole 40 daily. 8. [place] 7.5 t.i.d. 9. Plavix 75 mg daily. 10.Aspirin 81 daily. PHYSICAL EXAMINATION: VITAL SIGNS: Blood pressure is 160s to 170s, O2 is 94% on room air, temp 98.2, pulse 73, respiratory rate 18 to 20. ASSESSMENT: Acute cholecystitis with acute right upper quadrant pain, hypertension acceleration, COPD, nicotine addiction. Prognosis guarded. Home medicines have been reordered, updraft treatments, breathing treatments. We will give her p.r.n. medications for blood pressure over 160. MMODL / IJN: [id number] /
--- NOTE | 2024-04-30 03:42 | PN ---
PROGRESS NOTE SUBJECTIVE: She is scheduled for surgery of the gallbladder I think tomorrow. Her blood pressure is a little high. We are going to increase her Norvasc from 2.5 to 5 mg daily. OBJECTIVE: CARDIOVASCULAR: S1, S2. LUNGS: Transmitted upper sounds. Decreased breath sounds x4. GI: Soft. HEMATOLOGY: Negative Homans. PSYCH: Fair mood and affect. Pupils equal, round, reactive to light and accommodation. NEUROLOGIC: Cranial nerves intact. PLAN: Laparoscopic cholecystectomy tomorrow. N.p.o. after midnight. Continue antibiotics. Increase blood pressure medications. Plavix and aspirin on hold. Prognosis guarded. Ambulate as tolerated. MMODL / IJN: [id number] /
[2024-04-30 06:57] LABS: Basophils # (A) 0.1 k/uL (0-0.2); Basophils % (A) 1 %; Eosinophils # (A) 0.4 k/uL (0-0.7); Eosinophils % (A) 6 %; HCT 40.1 % (34.0-46.0); Lymphocytes # (A) 1.8 k/uL (1.0-4.8); Lymphocytes % (A) 24 %; MCH 29.7 pg (25.0-35.0); MCHC 32.4 g/dL (31.0-37.0); MCV 91.7 fL (80.0-100.0); Mean Platelet Volume 7.4; Monocytes # (A) 0.7 k/uL (0-1.0); Monocytes % (A) 10 %; Neutrophils # (A) 4.4 k/uL (1.3-7.7); Neutrophils % (A) 59 %; Platelet Count 209 k/uL (150-450); RBC 4.37 m/uL (3.80-5.40); RDW 13.2 % (11.5-15.5); WBC 7.5 k/uL (3.8-10.6)
[2024-04-30 07:30] LABS: ALT 119 U/L (4-34); AST 28 U/L (14-36); African American GFR (CKD) >90 (>60 ml/min/1.73 sqM); Albumin 3.2 g/dL (3.5-5.0); Albumin/Globulin Ratio 1.5; Alkaline Phosphatase 99 U/L (38-126); Anion Gap 5 mmol/L; Blood Urea Nitrogen 8 mg/dL (7-17); Calcium 8.7 mg/dL (8.4-10.2); Carbon Dioxide 28 mmol/L (22-30); Chloride 106 mmol/L (98-107); Globulin 2.1 g/dL; Glucose 82 mg/dL (74-99); Non-African American GFR(CKD) 85 (>60 ml/min/1.73 sqM); Potassium 3.9 mmol/L (3.5-5.1); Sodium 139 mmol/L (137-145); Total Bilirubin 0.6 mg/dL (0.2-1.3); Total Protein 5.3 g/dL (6.3-8.2)
--- NOTE | 2024-04-30 14:35 | P.PN ---
Subjective Progress Note Date: 04/30/24 SURGICAL PROGRESS NOTE CHIEF COMPLAINT: Symptomatic cholelithiasis and biliary colic HISTORY OF PRESENT ILLNESS: Patient currently denies any abdominal pain. She denies any nausea or vomiting. She is scheduled for laparoscopic cholecystectomy today. Afebrile. WBC 7.5 Hgb 13 platelets 209 sodium is 139 potassium 3.9 creatinine 0.62 total bilirubin 0.6 AST normalized at 28 ALT down to 119 alk phos 99 PHYSICAL EXAM: VITAL SIGNS: Reviewed. GENERAL: Well-developed in no acute distress. ABDOMEN: Soft. Nondistended. Nontender. NEUROLOGIC: Alert and oriented. Cranial nerves II through XII grossly intact. ASSESSMENT: 1. Symptomatic cholelithiasis and biliary colic. 2. Choledocholithiasis. LFTs trending downwards and total bilirubin normalized.. Patient likely passed gallstone. PLAN: -Laparoscopic cholecystectomy scheduled for today Physician Account Manager note has been reviewed by physician. Signing provider agrees with the documented findings, assessment, and plan of care. Objective - Vital Signs Vital signs: Vital Signs Temp 98.2 F 04/30/24 07:41 Pulse 50 L 04/30/24 07:41 Resp 18 04/30/24 07:41 BP 179/73 04/30/24 10:39 Pulse Ox 97 04/30/24 07:41 FiO2 Intake & Output 04/29/24 04/30/24 04/30/24 18:59 06:59 18:59 Other: Voiding Method Toilet Toilet # Voids 3 3 - Labs CBC & Chem 7: 04/30/24 06:24 04/30/24 06:24 Labs: Abnormal Lab Results - Last 24 Hours (Table) 04/30/24 Range/Units 06:24 ALT 119 H (4-34) U/L Total Protein 5.3 L (6.3-8.2) g/dL Albumin 3.2 L (3.5-5.0) g/dL
[2024-04-30] MEDS: IV FLUID CONTINUATION 1,000 ML IV ONE (15:24)
[2024-04-30] MEDS: ONDANSETRON 4 MG/2 ML VIAL IVP STA (15:43)
[2024-04-30] MEDS: DEXAMETHASONE SOD PHOSPHATE 4 MG/ML 1 ML VIAL IVP STA (15:43)
[2024-04-30] MEDS: HEPARIN SODIUM,PORCINE 5,000 UNIT/ML 1 ML VIAL SQ STA (16:11)
[2024-04-30] MEDS ORDERED: ROCURONIUM 10 MG/ML (5 ML VIAL) IV ONE (16:20)
[2024-04-30] MEDS ORDERED: PROPOFOL 10 MG/ML 20 ML VIAL IV ONE (16:20)
[2024-04-30] MEDS ORDERED: fentaNYL (PF) 50 MCG/ML 2 ML AMP ONE (16:20)
[2024-04-30] MEDS ORDERED: LIDOCAINE 1% INJ 10MG/ML (20 ML MDV) ONE (16:20)
[2024-04-30] MEDS ORDERED: SUGAMMADEX SODIUM 100 MG/ML SYR IV ONE (16:20)
[2024-04-30] MEDS ORDERED: SUCCINYLCHOLINE CHLORIDE 200 MG/10 ML VIAL IV ONE (16:20)
[2024-04-30] MEDS ORDERED: NEOSTIGMINE 1 MG/ML 10 ML VIAL ONE (16:20)
[2024-04-30] MEDS ORDERED: GLYCOPYRROLATE 0.2 MG/ML 2 ML VIAL ONE (16:20)
[2024-04-30] MEDS ORDERED: ceFAZolin 1 GM/50 ML BAG (PMX) ONE (16:20)
[2024-04-30] MEDS ORDERED: ePHEDrine 50 MG/ML 1 ML VIAL ONE (16:20)
[2024-04-30] MEDS: SODIUM CHLORIDE 0.9% 100 ML with ceFAZolin 2,000 MG IV ONE (16:25)
[2024-04-30] MEDS: LIDOCAINE 1%-EPI 1:100,000 20 ML VIAL SQ ONE (16:47)
--- NOTE | 2024-04-30 17:13 | P.OP ---
Date of Procedure: 04/30/24 Preoperative Diagnosis: Cholecystitis Cholelithiasis Postoperative Diagnosis: Cholecystitis Cholelithiasis Procedure(s) Performed: Upper scopic cholecystectomy Anesthesia: CHOLOA Surgeon: Matthew Mixon Estimated Blood Loss (ml): 5 Pathology: other (Gallbladder) Condition: stable Disposition: PACU Description of Procedure: The patient was placed on the operating table. The patient received a general endotracheal tube anesthesia. The patients abdomen was prepped and draped in the usual sterile fashion. Through an infraumbilical stab incision, the fascia of the anterior abdominal wall was grasped with a pair of Kochers and then the Veress needle was placed in the peritoneal cavity. Position of the Veress needle was confirmed with positive drop test. The abdomen was then insufflated. After adequate insufflation, the 10 mm trocar was placed in the peritoneal cavity. Following this the laparoscope was placed in the peritoneal cavity. The patient was placed in the head-up, right side up position and then a 5 mm trocar was placed in the right lateral and right subcostal position under direct visualization. A 8 mm trocar was placed in the epigastric position. The gallbladder was grasped in the fundus and infundibulum. Traction on the gallbladder was placed in the lateral and the cephalad positions. The triangle of Calot was visualized.. The cystic duct was bluntly dissected until the union of the cystic duct and common bile duct was seen. A critical view of safety was achieved. The cystic duct was then divided and sealed with the Harmonic scissors. A PDS Endoloop was then placed throughout the cystic duct stump. The cystic artery divided and sealed with the Harmonic scissors. The gallbladder was then removed from the liver bed using Harmonic scissors. The gallbladder was then extracted through the epigastric port site. Operative field was checked for any bleeding spots and Harmonic scissors was used to coagulate the liver bed. The abdomen was irrigated. The trocars were removed. The skin was closed using interrupted 3-0 Vicryl suture. Dermabond dressing were applied. The patient tolerated the procedure well.
[2024-04-30] MEDS ORDERED: HYDROmorphone 1 MG/ML 1 ML SYRINGE IVP PRN (17:14)
[2024-04-30] MEDS: HYDROmorphone 0.5 MG/0.5 ML SYRINGE IVP PRN ×2 (17:46→18:15)
[2024-04-30] MEDS: hydrALAZINE HCL 20 MG/ML 1 ML VIAL IVP STA (18:11)
[2024-04-30] MEDS: ONDANSETRON 4 MG/2 ML VIAL IVP PRN (21:05)
[2024-05-01] MEDS: HYDROcodone/APAP 7.5-325MG 1 EACH TAB PO PRN (00:17)
[2024-05-01] MEDS ORDERED: HYDROmorphone 0.5 MG/0.5 ML SYRINGE IVP PRN (07:00)
[2024-05-01 08:02] VITALS: BP 138/69; PULSE 69; RESP 18; TEMP 98
--- NOTE | 2024-05-01 11:41 | P.DS ---
Providers Date of admission: 04/27/24 09:11 Expected date of discharge: 05/01/24 Attending physician: Matthew Mixon Consults: 04/27/24 12:37 Consult Physician Routine Consulting Provider: Kevin Ríos Consult Reason/Comments: Medical management, biliary colic Do you want consulting provider notified?: Yes Primary care physician: Kevin Ríos Hospital Course: Discharge diagnosis 1. Cholecystitis and cholelithiasis status post Laparoscopic cholecystectomy Hospital course This 83-year-old female presented the hospital right upper quadrant abdominal pain. She was found to have evidence of cholelithiasis and choledocholithiasis. Patient started on antibiotics. Her LFTs and total bilirubin were monitored and trended down. Patient needed to also be off of her aspirin and Plavix before proceeding with surgery. Patient is status post laparoscopic cholecystectomy. Patient tolerated surgery well. Pain is controlled. She is tolerating diet she is afebrile. She is stable for discharge. Please refer to chart for any further details. Physician Medical Review Specialist note has been reviewed by physician. Signing provider agrees with the documented findings, assessment, and plan of care. Patient Condition at Discharge: Stable Plan - Discharge Summary Discharge Rx Participant: Yes New Discharge Prescriptions: New Docusate [Colace] 100 mg PO BID #30 capsule HYDROcodone/APAP 7.5-325MG [[place] 7.5-325] 1 tab PO Q6HR PRN 3 Days #10 tab PRN Reason: Pain Continue traZODone HCL [Desyrel] 50 mg PO HS Clopidogrel [Plavix] 75 mg PO DAILY Losartan Potassium 100 mg PO HS Metoprolol Tartrate [Lopressor] 25 mg PO BID Citalopram Hydrobromide [CeleXA] 40 mg PO DAILY Aspirin 81 mg PO DAILY amLODIPine [Norvasc] 2.5 mg PO HS Atorvastatin [Lipitor] 40 mg PO DAILY Ipratropium-Albuterol Nebulize [Duoneb 0.5 mg-3 mg/3 ml Soln] 3 ml INHALATION RT-QID PRN PRN Reason: Shortness Of Breath Omeprazole 40 mg PO DAILY HYDROcodone/APAP 7.5-325MG [[place] 7.5-325] 1 tab PO TID PRN PRN Reason: Pain Discharge Medication List Clopidogrel [Plavix] 75 mg PO DAILY 11/12/22 [History] traZODone HCL [Desyrel] 50 mg PO HS 11/12/22 [History] Aspirin 81 mg PO DAILY 08/14/23 [History] Atorvastatin [Lipitor] 40 mg PO DAILY 04/27/24 [History] Citalopram Hydrobromide [CeleXA] 40 mg PO DAILY 04/27/24 [History] HYDROcodone/APAP 7.5-325MG [[place] 7.5-325] 1 tab PO TID PRN 04/27/24 [History] Ipratropium-Albuterol Nebulize [Duoneb 0.5 mg-3 mg/3 ml Soln] 3 ml INHALATION RT-QID PRN 04/27/24 [History] Losartan Potassium 100 mg PO HS 04/27/24 [History] Metoprolol Tartrate [Lopressor] 25 mg PO BID 04/27/24 [History] Omeprazole 40 mg PO DAILY 04/27/24 [History] amLODIPine [Norvasc] 2.5 mg PO HS 04/27/24 [History] Docusate [Colace] 100 mg PO BID #30 capsule 05/01/24 [Rx] HYDROcodone/APAP 7.5-325MG [[place] 7.5-325] 1 tab PO Q6HR PRN 3 Days #10 tab 05/01/24 [Rx] Follow up Appointment(s)/Referral(s): Kevin Ríos MD [Primary Care Provider] - 05/08/24 11:00 am Matthew Mixon MD [STAFF PHYSICIAN] - 05/07/24 2:30 pm Activity/Diet/Wound Care/Special Instructions: No driving while taking [place] No lifting over 10 pounds Shower daily. No soaking or tub baths for 2 weeks Very light activity until you are reevaluated at your follow up appointment with your surgeon Okay to resume aspirin and Plavix tomorrow, 05/02/2024 Discharge Disposition: HOME SELF-CARE
== END 2024-05-01 11:43 | disposition home or self-care (01) | DRG 419 ==
LOC: EC 04:03 → 4SSUR 09:11
PROVIDERS: ADMIT Surgery; ATTEND Surgery
PROC: 0FT44ZZ Resection of Gallbladder, Percutaneous Endoscopic Approach (ICD-10-PCS; principal; 2024-04-30 07:30)
DX: K80.66 Calculus of gallbladder and bile duct with acute and chronic cholecystitis without obstruction (principal); E78.5 Hyperlipidemia, unspecified; J44.9 Chronic obstructive pulmonary disease, unspecified; I10 Essential (primary) hypertension; G89.29 Other chronic pain; M54.9 Dorsalgia, unspecified; F41.9 Anxiety disorder, unspecified; K21.9 Gastro-esophageal reflux disease without esophagitis; M19.90 Unspecified osteoarthritis, unspecified site; Z53.8 Procedure and treatment not carried out for other reasons; F17.200 Nicotine dependence, unspecified, uncomplicated; Z79.02 Long term (current) use of antithrombotics/antiplatelets; Z79.82 Long term (current) use of aspirin; Z79.899 Other long term (current) drug therapy; Z88.2 Allergy status to sulfonamides; Z86.73 Personal history of transient ischemic attack (TIA), and cerebral infarction without residual deficits; Z96.651 Presence of right artificial knee joint
CPT/HCPCS: 36415; 71046; 74177; 76705; 80053; 81003; 82150; 83605; 83690; 85025; 85610; 85730; 88304; 96361; 96365; 96366; 96375; 99285